=== PATIENT | female | born 1940 | race Caucasian/White ===

== ENCOUNTER 2020-07-28 07:25 | Outpatient (REF) | payer BC, SELFPAY ==
--- NOTE | 2020-07-28 07:29 | MM_ITS ---
EXAMINATION: MM SCREENING DIGITAL BREAST TOMOSYNTHESIS, BILATERAL CLINICAL INFORMATION: Screening. Asymptomatic. The lifetime risk of breast cancer based on the Tyrer-Cuzick Model is 2%. COMPARISON: Mammography: 07/26/2019, 07/04/2018, 06/08/2017 TECHNIQUE: Digital breast tomosynthesis is performed in both the craniocaudal and mediolateral oblique views along with computer-aided detection (CAD). Synthesized 2D images are generated from the tomosynthesis. Additional left CC view is provided. FINDINGS: The breasts are almost entirely fatty (ACR BI-RADS breast composition Category a). There are no significant masses, abnormal calcifications, or other abnormalities. Background stromal densities are stable. No significant changes. MM/MM tomosynthesis screening BI IMPRESSION: No mammographic evidence of malignancy. ASSESSMENT: BI-RADS 1: Negative RECOMMENDATION: Routine annual mammography screening. This patient's information was entered into a reminder system with a target due date for their next mammogram.
== END 2020-07-28 07:26 | disposition home or self-care (01) ==
LOC: HO.MAMMO 07:25
PROVIDERS: PCP Internal Medicine; Visit Provider Internal Medicine
DX: Z12.31 Encounter for screening mammogram for malignant neoplasm of breast (principal)
CPT/HCPCS: 77063; 77067

== ENCOUNTER 2020-11-20 07:25 | Outpatient (REF) | payer MEDICARE, SELFPAY ==
[2020-11-20 08:30] LABS: MANUAL DIFF FLAG NO
[2020-11-20 08:45] LABS: Basophils Percent Auto 0.6 % (0-2); Eosinophils Absolute Auto 0.3 X10*3/uL (0.0-0.4); Eosinophils Percent Auto 3.6 % (0-4); Hematocrit 43.9 % (37-47); Hemoglobin 14.2 g/dl (12.0-16.0); Imm Gran Abs Auto 0.01 X10*3/uL (0.00-0.03); Imm Gran Pct Auto 0.1 % (0.0-0.4); Lymphocytes Absolute Auto 2.2 X10*3/uL (1.2-4.9); Lymphocytes Percent Auto 31.6 % (20-40); Mean Corpuscular HGB Conc 32.3 g/dl (31.0-35.0); Mean Corpuscular Hemoglobin 30.9 pg (27.0-33.0); Mean Corpuscular Volume 95.4 fL (80-98); Mean Platelet Volume 11.3 fL (9.4-12.3); Monocytes Absolute Auto 0.7 X10*3/uL (0.1-1.2); Monocytes Percent Auto 10.2 % (2-11); Neutrophils Absolute Auto 3.7 X10*3/uL (2.0-8.3); Neutrophils Percent Auto 53.9 % (45-73); Platelet Count 235 X10*3/uL (160-400); Red Cell Distribution Width 13.4 % (11.0-16.0); White Blood Count 6.9 X10*3/uL (4.8-10.8)
[2020-11-20 09:12] LABS: Alanine Aminotransferase 28 U/L (0-31); Albumin Level 4.3 g/dL (3.5-5.0); Alkaline Phosphatase 43 U/L (39-117); Anion Gap 12 (12-20); Aspartate Amino Transferase 33 U/L (5-31); Bilirubin Total 0.7 mg/dL (0.0-1.0); Blood Urea Nitrogen 23 mg/dL (9-16); Calcium 8.8 mg/dL (8.4-10.2); Carbon Dioxide 27 mmol/L (22-29); Chloride 105 mmol/L (96-108); Cholesterol 156 mg/dL; Estimated Glomerular Filt Rate 60; Glucose Fasting 99 mg/dL (60-99); HDL Cholesterol 59 mg/dL; LDL Cholesterol Calculated 86 mg/dl; Potassium 4.6 mmol/L (3.3-5.1); Sodium 139 mmol/L (135-145); Total Protein 6.9 g/dL (6.5-8.0); Triglycerides 59 mg/dL
[2020-11-20 09:34] LABS: Vitamin D 25-OH Total 23.4 ng/mL (>30)
== END 2020-11-20 07:26 | disposition home or self-care (01) ==
LOC: HO.LAB 07:25
PROVIDERS: PCP Internal Medicine; Visit Provider Internal Medicine
DX: I10 Essential (primary) hypertension (principal); I25.10 Atherosclerotic heart disease of native coronary artery without angina pectoris; E78.00 Pure hypercholesterolemia, unspecified; M85.80 Other specified disorders of bone density and structure, unspecified site
CPT/HCPCS: 36415; 80053; 80061; 82306; 85025

== ENCOUNTER 2021-06-08 07:18 | Outpatient (REF) | payer MEDICARE, SELFPAY ==
[2021-06-08 08:15] LABS: Alanine Aminotransferase 28 U/L (0-31); Aspartate Amino Transferase 30 U/L (5-31); Cholesterol 167 mg/dL; HDL Cholesterol 51 mg/dL; LDL Cholesterol Calculated 96 mg/dl; Triglycerides 100 mg/dL
[2021-06-08 08:20] LABS: Alanine Aminotransferase 28 U/L (0-31); Albumin Level 4.1 g/dL (3.5-5.0); Alkaline Phosphatase 42 U/L (39-117); Anion Gap 10 (12-20); Aspartate Amino Transferase 30 U/L (5-31); Bilirubin Total 0.6 mg/dL (0.0-1.0); Blood Urea Nitrogen 19 mg/dL (9-16); Calcium 8.9 mg/dL (8.4-10.2); Carbon Dioxide 29 mmol/L (22-29); Chloride 107 mmol/L (96-108); Estimated Glomerular Filt Rate > 60; Glucose Random 104 mg/dL (60-115); Potassium 4.9 mmol/L (3.3-5.1); Sodium 141 mmol/L (135-145); Total Protein 6.7 g/dL (6.5-8.0)
[2021-06-08 08:40] LABS: Vitamin D 25-OH Total 26.8 ng/mL (>30)
== END 2021-06-08 07:19 | disposition home or self-care (01) ==
LOC: HO.LAB 07:18
PROVIDERS: Absent Provider Internal Medicine; PCP Internal Medicine; Visit Provider Internal Medicine Cardiovascular Disease
DX: I10 Essential (primary) hypertension (principal); E55.9 Vitamin D deficiency, unspecified; I25.10 Atherosclerotic heart disease of native coronary artery without angina pectoris
CPT/HCPCS: 36415; 80053; 80061; 82306; 84450; 84460

== ENCOUNTER 2021-08-06 11:23 | Outpatient (REF) | payer MEDICARE, SELFPAY ==
--- NOTE | ~2021-08-06 | MM_ITS ---
EXAMINATION: MM SCREENING DIGITAL BREAST TOMOSYNTHESIS, BILATERAL CLINICAL INFORMATION: Screening. Asymptomatic. The lifetime risk of breast cancer based on the Tyrer-Cuzick Model is 2%. COMPARISON: Mammography: 07/28/2020, 07/26/2019, 07/04/2018 TECHNIQUE: Digital breast tomosynthesis is performed in both the craniocaudal and mediolateral oblique views along with computer-aided detection (CAD). Synthesized 2D images are generated from the tomosynthesis. Additional left MLO view is provided. FINDINGS: The breasts are almost entirely fatty (ACR BI-RADS breast composition Category a). There are no significant masses, abnormal calcifications, or other abnormalities. Background stromal and fibroglandular densities are stable. No developing density. No significant changes from prior studies. MM/MM tomosynthesis screening BI IMPRESSION: No mammographic evidence of malignancy. ASSESSMENT: BI-RADS 1: Negative RECOMMENDATION: Routine annual mammography screening. This patient's information was entered into a reminder system with a target due date for their next mammogram.
== END 2021-08-06 11:24 | disposition home or self-care (01) ==
LOC: HO.MAMMO 11:23
PROVIDERS: Visit Provider Internal Medicine
DX: Z12.31 Encounter for screening mammogram for malignant neoplasm of breast (principal)
CPT/HCPCS: 77063; 77067

== ENCOUNTER 2022-01-15 07:10 | Outpatient (REF) | payer MEDICARE, SELFPAY ==
[2022-01-15 07:17] LABS: MANUAL DIFF FLAG NO
[2022-01-15 08:03] LABS: Basophils Percent Auto 0.4 % (0-2); Eosinophils Absolute Auto 0.2 X10*3/uL (0.0-0.4); Eosinophils Percent Auto 3.2 % (0-4); Hematocrit 41.3 % (37.0-47.0); Hemoglobin 13.6 g/dl (12.0-16.0); Imm Gran Abs Auto 0.03 X10*3/uL (0.00-0.03); Imm Gran Pct Auto 0.4 % (0.0-0.4); Lymphocytes Percent Auto 27.9 % (20-40); Mean Corpuscular HGB Conc 32.9 g/dl (31.0-35.0); Mean Corpuscular Hemoglobin 30.6 pg (27.0-33.0); Mean Platelet Volume 10.1 fL (9.4-12.3); Monocytes Absolute Auto 0.8 X10*3/uL (0.1-1.2); Monocytes Percent Auto 10.9 % (2-11); Neutrophils Absolute Auto 4.1 x10*3/uL (2.0-8.3); Neutrophils Percent Auto 57.2 % (45-73); Platelet Count 239 X10*3/uL (160-400); Red Blood Count 4.44 X10*6/uL (4.20-5.50); Red Cell Distribution Width 13.2 % (11.0-16.0); White Blood Count 7.2 X10*3/uL (4.8-10.8)
[2022-01-15 08:26] LABS: Alanine Aminotransferase 25 U/L (0-31); Alkaline Phosphatase 42 U/L (39-117); Anion Gap 10 (12-20); Aspartate Amino Transferase 26 U/L (5-31); Bilirubin Total 0.6 mg/dL (0.0-1.0); Blood Urea Nitrogen 20 mg/dL (9-16); Calcium 9.5 mg/dL (8.4-10.2); Carbon Dioxide 28 mmol/L (22-29); Chloride 108 mmol/L (96-108); Cholesterol 163 mg/dL; Estimated Glomerular Filt Rate 55; Glucose Fasting 100 mg/dL (60-99); HDL Cholesterol 44 mg/dL; LDL Cholesterol Calculated 101 mg/dl; Potassium 4.5 mmol/L (3.3-5.1); Sodium 141 mmol/L (135-145); Total Protein 6.7 g/dL (6.5-8.0); Triglycerides 91 mg/dL
[2022-01-15 08:46] LABS: Vitamin D 25-OH Total 23.1 ng/mL (>30)
== END 2022-01-15 07:11 | disposition home or self-care (01) ==
LOC: HO.LAB 07:10
PROVIDERS: PCP Internal Medicine; Visit Provider Internal Medicine
DX: I10 Essential (primary) hypertension (principal); E78.00 Pure hypercholesterolemia, unspecified; E55.9 Vitamin D deficiency, unspecified
CPT/HCPCS: 36415; 80053; 80061; 82306; 85025

== ENCOUNTER 2022-07-11 07:09 | Outpatient (REF) | payer MEDICARE, SELFPAY ==
[2022-07-11 07:57] LABS: Anion Gap 16 (12-20); Blood Urea Nitrogen 15 mg/dL (9-16); Calcium 8.5 mg/dL (8.4-10.2); Carbon Dioxide 25 mmol/L (22-29); Chloride 106 mmol/L (96-108); Estimated Glomerular Filt Rate 59; Glucose Random 111 mg/dL (60-115); Potassium 4.7 mmol/L (3.3-5.1); Sodium 142 mmol/L (135-145)
[2022-07-11 08:18] LABS: Vitamin D 25-OH Total 26.6 ng/mL (>30)
== END 2022-07-11 07:10 | disposition home or self-care (01) ==
LOC: HO.LAB 07:09
PROVIDERS: PCP Internal Medicine; Visit Provider Internal Medicine
DX: I12.9 Hypertensive chronic kidney disease with stage 1 through stage 4 chronic kidney disease, or unspecified chronic kidney disease (principal); E55.9 Vitamin D deficiency, unspecified; N18.9 Chronic kidney disease, unspecified
CPT/HCPCS: 36415; 80048; 82306

== ENCOUNTER 2022-08-12 07:49 | Outpatient (REF) | payer MEDICARE, SELFPAY ==
--- NOTE | ~2022-08-12 | MM_ITS ---
EXAMINATION: MM SCREENING DIGITAL BREAST TOMOSYNTHESIS, BILATERAL CLINICAL INFORMATION: Screening. Asymptomatic. COMPARISON: Mammography: 08/06/2021, 07/28/2020, 07/26/2019 TECHNIQUE: Digital breast tomosynthesis is performed in both the craniocaudal and mediolateral oblique views along with computer-aided detection (CAD). Synthesized 2D images are generated from the tomosynthesis. FINDINGS: The breasts are almost entirely fatty (ACR BI-RADS breast composition Category a). Background stromal markings are similar to prior studies. There is no developing density or architectural abnormality. There is a small stable nodule lateral periareolar left breast. There are no significant masses, abnormal calcifications, or other abnormalities. The axilla are unremarkable. MM/MM tomosynthesis screening BI IMPRESSION: No mammographic evidence of malignancy. ASSESSMENT: BI-RADS 2: Benign RECOMMENDATION: Routine annual mammography screening. This patient's information was entered into a reminder system with a target due date for their next mammogram.
== END 2022-08-12 07:50 | disposition home or self-care (01) ==
LOC: HO.MAMMO 07:49
PROVIDERS: PCP Internal Medicine; Visit Provider Internal Medicine
DX: Z12.31 Encounter for screening mammogram for malignant neoplasm of breast (principal)
CPT/HCPCS: 77063; 77067

== ENCOUNTER 2022-11-25 09:28 | Outpatient (REF) | payer MEDICARE, SELFPAY ==
[2022-11-25 10:34] LABS: MANUAL DIFF FLAG NO
[2022-11-25 10:42] LABS: Basophils Percent Auto 0.5 % (0-2); Eosinophils Absolute Auto 0.2 X10*3/uL (0.0-0.4); Eosinophils Percent Auto 2.6 % (0-4); Hematocrit 37.5 % (37.0-47.0); Hemoglobin 12.5 g/dl (12.0-16.0); Imm Gran Abs Auto 0.03 X10*3/uL (0.00-0.03); Imm Gran Pct Auto 0.4 % (0.0-0.4); Lymphocytes Absolute Auto 1.8 X10*3/uL (1.2-4.9); Lymphocytes Percent Auto 23.8 % (20-40); Mean Corpuscular HGB Conc 33.3 g/dl (31.0-35.0); Mean Corpuscular Hemoglobin 31.1 pg (27.0-33.0); Mean Corpuscular Volume 93.3 fL (80.0-98.0); Mean Platelet Volume 11.2 fL (9.4-12.3); Monocytes Absolute Auto 0.8 X10*3/uL (0.1-1.2); Monocytes Percent Auto 10.2 % (2-11); Neutrophils Absolute Auto 4.8 x10*3/uL (2.0-8.3); Neutrophils Percent Auto 62.5 % (45-73); Platelet Count 229 X10*3/uL (160-400); Red Blood Count 4.02 X10*6/uL (4.20-5.50); Red Cell Distribution Width 13.4 % (11.0-16.0); White Blood Count 7.7 X10*3/uL (4.8-10.8)
[2022-11-25 11:17] LABS: Alanine Aminotransferase 24 U/L (0-31); Albumin Level 3.8 g/dL (3.5-5.0); Alkaline Phosphatase 42 U/L (39-117); Anion Gap 12 (12-20); Aspartate Amino Transferase 28 U/L (5-31); Bilirubin Total 0.5 mg/dL (0.0-1.0); Blood Urea Nitrogen 19 mg/dL (9-16); C Reactive Protein < 0.10 mg/dL (< or = 0.50); Calcium 8.9 mg/dL (8.4-10.2); Carbon Dioxide 26 mmol/L (22-29); Chloride 108 mmol/L (96-108); Estimated Glomerular Filt Rate > 60; Glucose Random 102 mg/dL (60-115); Potassium 4.9 mmol/L (3.3-5.1); Sodium 141 mmol/L (135-145)
== END 2022-11-25 09:29 | disposition home or self-care (01) ==
LOC: HO.10HDL 09:28
PROVIDERS: Visit Provider Internal Medicine
DX: I12.9 Hypertensive chronic kidney disease with stage 1 through stage 4 chronic kidney disease, or unspecified chronic kidney disease (principal); N18.9 Chronic kidney disease, unspecified; R25.2 Cramp and spasm
CPT/HCPCS: 36415; 80053; 82550; 85025; 86140

== ENCOUNTER 2023-02-03 10:51 | Outpatient (REF) | payer MEDICARE, SELFPAY ==
[2023-02-03 13:17] LABS: MANUAL DIFF FLAG NO
[2023-02-03 13:20] LABS: Basophils Percent Auto 0.6 % (0-2); Eosinophils Absolute Auto 0.2 X10*3/uL (0.0-0.4); Eosinophils Percent Auto 3.3 % (0-4); Hematocrit 39.5 % (37.0-47.0); Hemoglobin 12.7 g/dl (12.0-16.0); Imm Gran Abs Auto 0.01 X10*3/uL (0.00-0.03); Imm Gran Pct Auto 0.1 % (0.0-0.4); Mean Corpuscular HGB Conc 32.2 g/dl (31.0-35.0); Mean Corpuscular Hemoglobin 30.8 pg (27.0-33.0); Mean Corpuscular Volume 95.6 fL (80.0-98.0); Mean Platelet Volume 11.3 fL (9.4-12.3); Monocytes Absolute Auto 0.8 X10*3/uL (0.1-1.2); Neutrophils Absolute Auto 3.9 x10*3/uL (2.0-8.3); Platelet Count 236 X10*3/uL (160-400); Red Blood Count 4.13 X10*6/uL (4.20-5.50); Red Cell Distribution Width 13.5 % (11.0-16.0)
[2023-02-03 13:38] LABS: Anion Gap 10 (12-20); Blood Urea Nitrogen 16 mg/dL (9-16); Calcium 9.1 mg/dL (8.4-10.2); Carbon Dioxide 27 mmol/L (22-29); Chloride 109 mmol/L (96-108); Estimated Glomerular Filt Rate > 60; Glucose Random 94 mg/dL (60-115); Potassium 4.8 mmol/L (3.3-5.1); Sodium 141 mmol/L (135-145)
[2023-02-03 13:48] LABS: Free T4 (Free Thyroxine) 0.87 ng/dL (0.71-1.85); Thyroid Stimulating Hormone 2.24 uIU/mL (0.32-4.0)
[2023-02-03 13:55] LABS: Erythrocyte Sedimentation Rate 3 MM/HR (0-20)
== END 2023-02-03 10:52 | disposition home or self-care (01) ==
LOC: HO.10HDL 10:51
PROVIDERS: Visit Provider Internal Medicine
DX: E03.9 Hypothyroidism, unspecified (principal); I10 Essential (primary) hypertension; M79.18 Myalgia, other site
CPT/HCPCS: 36415; 80048; 82550; 84439; 84443; 85025; 85652

== ENCOUNTER 2023-06-11 14:56 | Emergency (ER) | payer MEDICARE, SELFPAY ==
[2023-06-11 14:59] VITALS: BP 178/66; PULSE 64; RESP 16; TEMP 36.3; O2SAT 97; BMI 29.0
--- NOTE | 2023-06-11 14:59 | ED.GENADULT ---
HPI - General Adult General Chief complaint: Wound/Laceration Stated complaint: Finger lac Time Seen by Provider: 06/11/23 15:50 Source: patient Mode of arrival: ambulatory Limitations: no limitations History of Present Illness HPI narrative: 83-year-old female [id number] here with laceration to the left 3rd digit from a hedgetrimmer which occurred just prior to arrival. Patient reports she cleaned the laceration with running water before coming in. Tetanus status unknown. No associated weakness, numbness, tingling of the extremity. Related Data Previous Rx's Medication Instructions Recorded cephalexin 500 mg capsule 500 mg PO BID #20 caps 06/11/23 Allergies Allergy/AdvReac Type Severity Reaction Status Date / Time acetaminophen [Percocet] Allergy Unknown Verified 08/31/19 00:00 oxycodone [Percocet] Allergy Unknown Verified 08/31/19 00:00 Review of Systems Review of Systems: Yes all other systems are reviewed and are negative Constitutional: Constitutional: Reports no additional constitutional complaints, Denies body ache(s), Denies chills, Denies fever(s), Denies headache(s) and Denies weakness Eyes: Eyes: Reports no additional eye complaints and Denies change in vision ENT: Reports system reviewed and no additional complaints, except as documented, Denies dizziness, Denies headache(s), Denies nasal congestion, Denies nasal discharge and Denies neck pain Cardiovascular: Cardiovascular: Reports no additional cardiovascular complaints, Denies chest pain, Denies leg edema and Denies dyspnea Respiratory: Respiratory: Reports no additional respiratory complaints, Denies cough and Denies dyspnea Gastrointestinal: Gastrointestinal: Reports no additional gastrointestinal complaints, Denies abdominal pain, Denies diarrhea, Denies nausea and Denies vomiting Genitourinary: Genitourinary: Reports no additional female genitourinary complaints and Denies urinary incontinence Musculoskeletal: Musculoskeletal: Reports no additional musculoskeletal complaints, Denies back pain, Denies arthralgias, Denies joint swelling, Denies neck pain, Denies numbness and Denies tingling Integumentary/Breasts: Skin/Breast: Reports system reviewed and no additional complaints, except as docu, Denies rash and Reports wounds Neurologic: Reports system reviewed and no additional complaints, except as documented, Denies Abnormal speech present, Denies dizziness, Denies headache(s), Denies numbness, Denies tingling and Denies weakness [facility] Past Medical History Attestation statement: The following information was validated with the patient. Source: old records reviewed and nursing notes reviewed Social History Social History Advance Directives: No Advance Directives Information Provided: No Physical Exam ED Vital Signs: Vital Signs - 24 hr 06/11/23 14:59 Temperature 97.3 F Pulse Rate 64 Respiratory Rate 16 Blood Pressure 178/66 H Pulse Oximetry 97 Oxygen Delivery Method Room Air BMI result Body Mass Index 29.0 Const General: cooperative, healthy appearing, comfortable and no acute distress Orientation/consciousness: patient oriented x3 Limitations: no limitations HENMT Head: Yes normal to inspection Ears: hearing grossly normal bilaterally General nose exam: Normal external nose present Face and sinus: Yes normal facial exam Mouth: Normal oral and palatal mucosa present Throat: Yes posterior oropharynx normal Eyes General: appearance normal, both eyes and all related structures Pupils: Equal, round and reactive pupils present Neck Neck: Yes normal visual inspection Chest Chest palpation & inspection: normal inspection of the chest Resp Effort & Inspection: normal respiratory effort Auscultation: clear to auscultation bilaterally Cardio Rate: regular rate Rhythm: regular rhythm Peripheral pulses: Peripheral pulses 2+ throughout GI Inspection: Yes normal to inspection Palpation (GI): Soft to palpation and nontender Auscultation: normal bowel sounds Back/Spine/Pelvis Thoracic/Lumbar Spine: thoracic and lumbar spine normal to inspection Skin General skin exam: no rashes or lesions noted Neuro General: patient oriented x3, no focal motor deficits and normal sensation to monofilament Cranial nerves: Yes Equal, round and reactive pupils present Cognition (Neuro): normal cognition Speech: No Abnormal speech present Gait exam (Neuro): Normal gait present Motor exam (neuro): 5/5 motor strength present throughout Extrem Other: To the left 3rd digit there is a laceration present through the distal nailbed approximately 2cm which extends to the medial aspect. Bleeding controlled. Full active/passive ROM. Normal sensation. Course Course Course Narrative: RME; 83 yold female with left middle finger laceration going through nail bed after being cut by branch hedge trimer. Patient last tetanus shot 2013. Xray ordered. tdap ordered Medications Administered Discontinued Medications Generic Name Dose Route Start Last Admin Trade Name Freq PRN Reason Stop Dose Admin Diphtheria/Tetanus/Acell Pertussis 0.5 ml 06/11/23 14:58 06/11/23 15:51 Diphth,Pertus(Acell),Tet Adult 0.5 Ml Syringe IM 06/11/23 14:59 0.5 ml .ONCE ONE Administration Lidocaine HCl 2 ml 06/11/23 15:59 06/11/23 16:06 Lidocaine Hcl 1 % Mpf 2 Ml Vial INFILTRATI 06/11/23 16:00 2 ml ONCE ONE Administration Lidocaine HCl 2 ml 06/11/23 15:59 06/11/23 16:07 Lidocaine Hcl 1 % Mpf 2 Ml Vial INFILTRATI 06/11/23 16:00 2 ml ONCE ONE Administration Lidocaine HCl 2 ml 06/11/23 15:59 06/11/23 16:07 Lidocaine Hcl 1 % Mpf 2 Ml Vial INFILTRATI 06/11/23 16:00 2 ml ONCE ONE Administration Procedures Procedure Narrative Procedure Narrative: During the lac repair the distal nail broke into fragments and the lateral distal aspect of the nailbed was removed. Laceration Laceration 1: Site: hand Side (If applicable): left Size (cm): 2 Description: flap, irregular and other (involves nailbed ) Depth: simple, single layer Pre-repair: wound explored, irrigated extensively, deep structures intact and extensive debridement (had to remove the distal nailbed) Skin layer closed with: vicryl Size (cm): 5-0 Number of sutures: 3 Technique: simple, interrupted Nerve Block Nerve Block 1: Local Anesthetic: lidocaine 1% Amount of anesthesia used (mL): 5 Side: left Nerve Blocks: digital Procedure Successful: Yes Patient Tolerated Procedure: well Complications: none Medical Decision Making Medical Decision Making MDM Narrative: 83-year-old female [id number] here with laceration to the left 3rd digit from a hedgetrimmer which occurred just prior to arrival. Patient reports she cleaned the laceration with running water before coming in. Tetanus status unknown. No associated weakness, numbness, tingling of the extremity. To the left 3rd digit there is a laceration present through the distal nailbed approximately 2cm which extends to the medial aspect. Bleeding controlled. Full active/passive ROM. Normal sensation. See procedure note for wound repair. Will need tetanus updated, x-ray to r/o fracture Differential Diagnosis Differential Diagnoses: The differential diagnosis associated with the presentation includes laceration, fracture low concern for vascular injury, foreign body Admission/Observation Consideration of admission/observation: Escalation of care including admission/observation considered no evidence of vascular injury, complex fracture, foreign body requiring emergent orthopedic consultation and further management Independent Interpretation I performed an independent interpretation of an: Plain X-Ray Interpretation: I independently reviewed the x-ray and agree with the radiology report Radiology Impression Discussion of test interpretation with radiology: I have reviewed the radiologist's reading. Radiologist Impression: [address] [address] XRay Report Signed Patient: Jacy Mcknight MR#: [id number] : 1940 Acct:[id number] Age/Sex: 83 / F ADM Date: 06/11/23 Loc: HO.ED Attending Dr: Ordering Physician: Julien Avitia Date of Service: 06/11/23 Procedure(s): XR hand wrist LT Accession Number(s): [id number] cc: Julien Avitia; Cayetano Del Real MD~ EXAMINATION: XR WRIST, LEFT XR HAND, LEFT CLINICAL INFORMATION: Left middle finger laceration. Tuft fracture. COMPARISON: None available. TECHNIQUE: PA, lateral, and oblique views of the left wrist and PA, lateral, and oblique views of the left hand FINDINGS: LEFT WRIST: The bones and soft tissues are normal. No fracture. Alignment is anatomic. Joint there is loss of first carpometacarpal joint space with moderate periarticular spurring. Rest of the intercarpal joint spaces preserved. There is mild wrist soft tissue swelling. No bony erosive changes or loose body seen.. LEFT HAND: Mild loss of PIP and DIP joint space is seen. No bony erosive changes. Mild periarticular spurring DIP joint fifth and second digits. No acute fracture or dislocation. No loose body seen. The soft tissues are normal. XR/XR hand wrist LT IMPRESSION: 1. Degenerative arthritic changes first carpometacarpal joint. No visible acute fracture or dislocation seen. 2. Mild degenerative changes PIP and DIP joints left hand. No visible acute fracture or dislocation seen. Independent Historian Clinical information obtained from an independent historian. History obtained from or confirmed by: Friend Tests considered The following testing was considered but not selected: no evidence of vascular injury, complex fracture, foreign body requiring emergent orthopedic consultation and further management Prescription Management I considered prescription management with: Antibiotic Discharge Plan Discharge Clinical Impression: Laceration Patient Disposition: Home, Self-Care Instructions: Finger Laceration (ED) Additional Instructions: Sutures out in 7-10 days Leave the dressing in place for 24 hrs then you may remove the dressing and wash the area with soap and water daily Monitor for signs of infection such as redness, drainage, swelling, odor Prescriptions: New cephalexin 500 mg capsule 500 mg PO BID Qty: 20 0RF Referrals: Cayetano Del Real MD [Primary Care Provider] - 1 week Discharge Date/Time: 06/11/23 17:17
== END 2023-06-11 17:17 | disposition home or self-care (01) ==
PROVIDERS: Emergency Provider Emergency Medicine; PCP Internal Medicine
DX: S61.213A Laceration without foreign body of left middle finger without damage to nail, initial encounter (principal); S60.512A Abrasion of left hand, initial encounter; M25.532 Pain in left wrist; W29.8XXA Contact with other powered hand tools and household machinery, initial encounter; Y93.9 Activity, unspecified; Y92.9 Unspecified place or not applicable; Y99.9 Unspecified external cause status; Z23 Encounter for immunization
CPT/HCPCS: 13131; 73110; 73130; 90471; 90715; 99281; 99284

== ENCOUNTER 2023-06-13 07:17 | Outpatient (REF) | payer MEDICARE, SELFPAY | END 2023-06-13 07:18 | disposition home or self-care (01) | LOC: HO.LAB 07:17 | PROVIDERS: PCP Internal Medicine; Visit Provider Internal Medicine | DX: I25.10 Atherosclerotic heart disease of native coronary artery without angina pectoris (principal); I10 Essential (primary) hypertension; E78.00 Pure hypercholesterolemia, unspecified; E55.9 Vitamin D deficiency, unspecified | CPT/HCPCS: 36415; 80053; 80061; 82306; 82550; 85025 ==

== ENCOUNTER 2023-06-19 16:25 | Outpatient (REF) | payer MEDICARE, SELFPAY ==
[2023-06-19 17:52] LABS: C Reactive Protein 0.15 mg/dL (< or = 0.50)
[2023-06-19 18:17] LABS: Erythrocyte Sedimentation Rate 7 MM/HR (0-20)
== END 2023-06-19 16:26 | disposition home or self-care (01) ==
LOC: HO.LAB 16:25
PROVIDERS: PCP Internal Medicine; Visit Provider Internal Medicine
DX: M79.10 Myalgia, unspecified site (principal); R74.8 Abnormal levels of other serum enzymes; E78.00 Pure hypercholesterolemia, unspecified
CPT/HCPCS: 36415; 82550; 85652; 86140

== ENCOUNTER 2023-08-01 10:33 | Outpatient (REF) | payer MEDICARE, SELFPAY | END 2023-08-01 10:34 | disposition home or self-care (01) | LOC: HO.10HDL 10:33 | PROVIDERS: Visit Provider Internal Medicine | DX: I25.10 Atherosclerotic heart disease of native coronary artery without angina pectoris (principal); E78.00 Pure hypercholesterolemia, unspecified; R74.8 Abnormal levels of other serum enzymes | CPT/HCPCS: 36415; 82550 ==

== ENCOUNTER 2023-08-17 07:54 | Outpatient (REF) | payer MEDICARE, SELFPAY | END 2023-08-17 07:55 | disposition home or self-care (01) | LOC: HO.MAMMO 07:54 | PROVIDERS: PCP Internal Medicine; Visit Provider Internal Medicine | DX: Z12.31 Encounter for screening mammogram for malignant neoplasm of breast (principal) | CPT/HCPCS: 77063; 77067 ==

== ENCOUNTER → 2023-08-17 08:15 | Outpatient (BNV) | payer MEDICARE, SELFPAY | PROVIDERS: PCP Internal Medicine; Visit Provider Radiology Diagnostic Radiology | DX: Z12.31 Encounter for screening mammogram for malignant neoplasm of breast (principal) | CPT/HCPCS: 77063; 77067 ==

== ENCOUNTER 2023-11-28 07:19 | Outpatient (REF) | payer MEDICARE, SELFPAY ==
[2023-11-28 07:29] LABS: MANUAL DIFF FLAG NO
[2023-11-28 07:43] LABS: Basophils Percent Auto 0.4 % (0-2); Eosinophils Absolute Auto 0.1 X10*3/uL (0.0-0.4); Eosinophils Percent Auto 1.4 % (0-4); Hematocrit 41.1 % (37.0-47.0); Hemoglobin 13.4 g/dl (12.0-16.0); Imm Gran Abs Auto 0.03 X10*3/uL (0.00-0.03); Imm Gran Pct Auto 0.3 % (0.0-0.4); Lymphocytes Absolute Auto 2.1 X10*3/uL (1.2-4.9); Lymphocytes Percent Auto 23.2 % (20-40); Mean Corpuscular HGB Conc 32.6 g/dl (31.0-35.0); Mean Corpuscular Hemoglobin 30.5 pg (27.0-33.0); Mean Corpuscular Volume 93.6 fL (80.0-98.0); Mean Platelet Volume 10.2 fL (9.4-12.3); Monocytes Absolute Auto 0.9 X10*3/uL (0.1-1.2); Neutrophils Absolute Auto 5.8 x10*3/uL (2.0-8.3); Neutrophils Percent Auto 64.7 % (45-73); Platelet Count 257 X10*3/uL (160-400); Red Blood Count 4.39 X10*6/uL (4.20-5.50); Red Cell Distribution Width 13.6 % (11.0-16.0)
[2023-11-28 08:25] LABS: Alanine Aminotransferase 25 U/L (0-31); Alkaline Phosphatase 51 U/L (39-117); Anion Gap 10 (12-20); Aspartate Amino Transferase 33 U/L (5-31); Bilirubin Total 0.5 mg/dL (0.0-1.0); Blood Urea Nitrogen 15 mg/dL (9-16); C Reactive Protein 2.49 mg/dL (< or = 0.50); Calcium 9.1 mg/dL (8.4-10.2); Carbon Dioxide 26 mmol/L (22-29); Chloride 110 mmol/L (96-108); Cholesterol 200 mg/dL (<200); Estimated Glomerular Filt Rate > 60; Glucose Fasting 95 mg/dL (60-99); HDL Cholesterol 44 mg/dL (>40); LDL Cholesterol Calculated 135 mg/dL (<100); Potassium 3.9 mmol/L (3.3-5.1); Sodium 142 mmol/L (135-145); Total Protein 7.1 g/dL (6.5-8.0); Triglycerides 105 mg/dL (<150)
== END 2023-11-28 07:20 | disposition home or self-care (01) ==
LOC: HO.LAB 07:19
PROVIDERS: PCP Internal Medicine; Visit Provider Internal Medicine
DX: I25.10 Atherosclerotic heart disease of native coronary artery without angina pectoris (principal); E78.00 Pure hypercholesterolemia, unspecified; I10 Essential (primary) hypertension; R79.82 Elevated C-reactive protein (CRP)
CPT/HCPCS: 36415; 80053; 80061; 82306; 82550; 85025; 86140

== ENCOUNTER 2024-02-05 12:46 | Outpatient (AMB) | payer MEDICARE, SELFPAY ==
--- NOTE | 2024-02-05 12:50 | MHC.OFFVIS ---
Vital Signs 02/05/24 12:56 Height 5 ft 3 in Weight 154 lb 12.232 oz BMI 27.4 BP 124/66 Blood Pressure Location Rt brachial Position Sitting Pulse 58 Pulse Oximetry (%) 96 Intake Visit Reasons: Elev CPK Intake Note: New patient presents today for abnormal lab consult. C/o multiple joint pain and dizziness when walking. 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 Accompanied by: Self / Same As Patient Allergies acetaminophen [From Tylenol-Codeine #3] Adverse Reaction (Severe, Verified 02/05/24 13:03) syncope codeine [From Tylenol-Codeine #3] Adverse Reaction (Severe, Verified 02/05/24 13:03) syncope oxycodone [From Percocet] Adverse Reaction (Severe, Verified 02/05/24 13:03) syncopee Medication List - Last Reconciled 02/05/24 by Arnol Torres MD ascorbate calcium (vitamin C) 500 mg PO DAILY aspirin 81 mg PO DAILY carvedilol 12.5 mg PO BID cholecalciferol (vitamin D3) 50 mcg PO DAILY isosorbide mononitrate ER 30 mg PO DAILY loratadine 10 mg PO DAILY losartan 50 mg PO DAILY HPI Comments Details: This is an 84-year-old female presents for evaluation of elevated CPK. Patient states that has been on pravastatin for approximately 6 years. Over the last 2 years she has been having bilateral hip and thigh soreness especially when exercising [facility] the [facility]. Her CPK was checked and it was approximately 700. Her pravastatin was held and her CPK trended down but did not normalize. She was referred by her creative art therapist. She states that gets bilateral hip and thigh pain especially with walking. Sitting down helps her pain. Leaning forward helps her pain. She states that she has generalized joint pain and stiffness in the morning, she has bilateral ankle pain. She takes ibuprofen 400 mg daily in the morning to help get her going. She states that she had lower back surgery years ago. Since she discontinued her statin approximately 7 months ago she did not note any significant improvement. Denies any weakness or pain of her shoulders. Denies any skin rashes, denies weight loss. She has a sister with leukemia, father had MS. [facility] Medical History (Updated 02/05/24 @ 13:41 by Arnol Torres MD) Hyperlipidemia Hypertension Elevated CPK Surgical History History of cardiac catheterization H/O angioplasty Hx of hysterectomy H/O basal cell carcinoma excision H/O lumbar discectomy History of total left knee replacement Family History Mother Lung cancer Arthritis Father Multiple sclerosis Sister Arthritis Leukemia Social History Alcohol intake: former Patient Tobacco Use Status: Never used Tobacco Current occupational status: retired Review of Systems Const Reports fatigue and Reports weakness Eyes Reports dry eyes Resp Reports cough Musc Reports back pain, Reports arthralgias, Denies joint swelling and Reports stiffness Skin/Breast Denies rash and Reports unusual bruising Neuro Reports weakness Endo Reports fatigue Physical Exam Vital Signs: Last Vital Signs Pulse 58 02/05/24 12:56 BP 124/66 02/05/24 12:56 Pulse Ox 96 02/05/24 12:56 BMI result Body Mass Index 27.4 Const General: cooperative, healthy appearing and comfortable Nutritional Appearance: overweight Orientation/consciousness: patient oriented x3 Limitations: no limitations HEENT Head: Yes normocephalic and Yes atraumatic Mouth: moist mucous membranes Resp Effort & Inspection: normal respiratory effort and able to speak in complete sentences Cardio Rate: regular rate Neuro General: patient oriented x3 Extrem Other: Osteoarthritic changes of both hands with no swelling Bilateral wrist pain with full flexion Normal range of motion of elbows and shoulders without pain Proximal muscle strength 5/5 proximally all 4 limbs Normal nailfold capillaroscopy Positive straight leg raise test bilaterally Right knee crepitus No ankle swelling or tenderness bilaterally Assessment & Plan Assessment & Plan (1) Elevated CPK: Code(s): R74.8 - Abnormal levels of other serum enzymes Category: Medical Plan: This is an 84-year-old female since for evaluation of elevated CPK. Patient's CPK trended down when her pravastatin was discontinued however it did not normalize. 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 Patient however complains of generalized morning stiffness lasting approximately 20 minutes daily, pain in her ankles, takes ibuprofen 400 mg daily for the last 2 years. Will order comprehensive serology to screen for underlying autoimmune rheumatic disease. Advised patient to try to cut down on ibuprofen use. Follow-up in 5-6 weeks Plan I spent 47 minutes reviewing patient's chart, evaluating patient, ordering diagnostic workup, counseling patient and documenting in the chart Orders: Orders Complete Blood Count Auto Diff Today M60.9 - Myositis, unspecified Creatine Kinase Total Today M60.9 - Myositis, unspecified Erythrocyte Sedimentation Rate Today M60.9 - Myositis, unspecified Immunofixation Pnl, Serum Today M60.9 - Myositis, unspecified Lactate Dehydrogenase Today M60.9 - Myositis, unspecified Gamma Glutamyl Transpeptidase Today R74.01 - Elevation of levels of liver transaminase levels Cyclic Citrullinated Peptide Today M25.50 - Pain in unspecified joint KIRSTIN Reflex Titer and Pattern Today M32.9 - Systemic lupus erythematosus, unspecified Complement C3 Today M32.9 - Systemic lupus erythematosus, unspecified Complement C4 Today M32.9 - Systemic lupus erythematosus, unspecified Comprehensive Met. Panel Today M60.9 - Myositis, unspecified C Reactive Protein Today M60.9 - Myositis, unspecified Aldolase Today M60.9 - Myositis, unspecified Hepatitis A,B,C Profile Today Z11.59 - Encounter for screening for other viral diseases Protein Electrophoresis, Serum Today M60.9 - Myositis, unspecified T Spot TB Today Z11.7 - Encounter for testing for latent tuberculosis infection MSA Panel Extended Today M60.9 - Myositis, unspecified Rheumatoid Factor Today M25.50 - Pain in unspecified joint Anti Extractable Nuclear Ag Today M32.9 - Systemic lupus erythematosus, unspecified Anti DNA DS Antibody Today M32.9 - Systemic lupus erythematosus, unspecified Protein Creatinine Ratio, Ur Today M32.9 - Systemic lupus erythematosus, unspecified Sjogren's Antibodies Today M32.9 - Systemic lupus erythematosus, unspecified UA w Microscopic Today M32.9 - Systemic lupus erythematosus, unspecified Coding Level of Care Code New Pt Level 4 (36052) Diagnoses Elevated CPK R74.8
[2024-02-05 12:56] VITALS: BP 124/66; PULSE 58; O2SAT 96; BMI 27.4
== END 2024-02-05 13:34 | disposition home or self-care (01) ==
PROVIDERS: PCP Internal Medicine; Referring Provider Internal Medicine Cardiovascular Disease; Visit Provider Student in an Organized Health Care Education/Training Program
DX: R74.8 Abnormal levels of other serum enzymes (principal)
CPT/HCPCS: 99204

== ENCOUNTER 2024-02-05 12:46 | Outpatient (REF) | payer MEDICARE, SELFPAY ==
[2024-02-05 13:58] LABS: MANUAL DIFF FLAG NO
[2024-02-05 14:46] LABS: Basophils Absolute Auto 0.1 X10*3/uL (0.0-0.2); Basophils Percent Auto 0.7 % (0-2); Eosinophils Absolute Auto 0.2 X10*3/uL (0.0-0.4); Eosinophils Percent Auto 2.2 % (0-4); Hematocrit 39.1 % (37.0-47.0); Imm Gran Abs Auto 0.02 X10*3/uL (0.00-0.03); Imm Gran Pct Auto 0.3 % (0.0-0.4); Lymphocytes Absolute Auto 2.4 X10*3/uL (1.2-4.9); Lymphocytes Percent Auto 31.6 % (20-40); Mean Corpuscular HGB Conc 33.2 g/dl (31.0-35.0); Mean Corpuscular Hemoglobin 30.8 pg (27.0-33.0); Mean Corpuscular Volume 92.7 fL (80.0-98.0); Mean Platelet Volume 10.7 fL (9.4-12.3); Monocytes Absolute Auto 0.7 X10*3/uL (0.1-1.2); Monocytes Percent Auto 9.5 % (2-11); Neutrophils Absolute Auto 4.2 x10*3/uL (2.0-8.3); Neutrophils Percent Auto 55.7 % (45-73); Platelet Count 250 X10*3/uL (160-400); Red Blood Count 4.22 X10*6/uL (4.20-5.50); Red Cell Distribution Width 14.4 % (11.0-16.0); White Blood Count 7.6 X10*3/uL (4.8-10.8)
[2024-02-05 14:51] LABS: Appearance Urine Clear; Color Urine Yellow; Glucose Urine UA Negative (Negative); Leukocyte Esterase Urine Negative (Negative); Nitrite Urine Negative (Negative); PH 6.5 (5.0-9.0); Specific Gravity - Urine 1.015 (1.005-1.025); Urine Blood Negative (Negative); Urine Ketones Negative (Negative); Urine Protein Negative (Neg-Trace)
[2024-02-05 14:54] LABS: Bacteria Urine None Seen (None Seen); Hyaline Casts Urine 0-2 /LPF (0-2); RBC Urine 0-2 /HPF (0-2); WBC Urine 0-5 /HPF (0-5)
[2024-02-05 15:17] LABS: Alanine Aminotransferase 26 U/L (0-31); Albumin Level 4.2 g/dL (3.5-5.0); Alkaline Phosphatase 51 U/L (39-117); Anion Gap 12 (12-20); Aspartate Amino Transferase 34 U/L (5-31); Bilirubin Total 0.3 mg/dL (0.0-1.0); Blood Urea Nitrogen 21 mg/dL (9-16); Calcium 9.2 mg/dL (8.4-10.2); Carbon Dioxide 25 mmol/L (22-29); Chloride 107 mmol/L (96-108); Estimated Glomerular Filt Rate > 60; Gamma Glutamyl Transpeptidase 16 U/L (7-33); Glucose Random 93 mg/dL (60-115); Lactate Dehydrogenase 223 U/L (122-220); Potassium 4.7 mmol/L (3.3-5.1); Sodium 139 mmol/L (135-145); Total Protein 7.1 g/dL (6.5-8.0)
[2024-02-05 15:22] LABS: Rheumatoid Factor < 13.0 IU/mL (<15.0)
[2024-02-05 15:24] LABS: Erythrocyte Sedimentation Rate 6 MM/HR (0-20)
[2024-02-05 15:39] LABS: Creatinine Urine 70.52 mg/dL; Total Protein Urine Random < 7 mg/dL (<12)
[2024-02-06 05:29] LABS: HBS Num1 0.57 mIU/mL (0-7.99); HBc Num1 0.13 S/CO (0.00-0.79); HBsAGNum1 0.32 S/CO (0.00-0.99); Hepatitis A Antibody IgM 0.18 Index (0-0.79); Hepatitis B Core Antibody Nonreactive (Nonreactive); Hepatitis B Surface Antigen Negative (Negative); ~HepC Num1 0.11 S/CO (0.00-0.79); ~Hepatitis A Antibody IgM Nonreactive (Nonreactive); ~Hepatitis B Surface Antibody NONREACTIVE (Nonreactive); ~Hepatitis C Antibody Nonreactive (Nonreactive)
[2024-02-06 12:33] LABS: Complement C3 64 mg/dL
[2024-02-07 19:59] LABS: Anti DNA DS Antibody 18 IU/mL; Antibody to SS-A Antigen <1.0 NEG AI (<1.0 NEG); Antibody to SS-B Antigen <1.0 NEG AI (<1.0 NEG); SM/Ribonucleoprotein Ab <1.0 NEG AI (<1.0 NEG); Smith Protein <1.0 NEG AI (<1.0 NEG)
[2024-02-07 21:48] LABS: Prot Elec - Albumin 4.2 g/dL (3.8-4.8); Prot Elec - Alpha1 0.2 g/dL (0.2-0.3); Prot Elec - Alpha2 0.7 g/dL (0.5-0.9); Prot Elec - Beta 1 0.4 g/dL (0.4-0.6); Prot Elec - Beta 2 0.3 g/dL (0.2-0.5); Prot Elec - Total Protein 6.8 g/dL (6.1-8.1)
[2024-02-08 14:49] LABS: TS Negative Control Passed; TS Panel A 6; TS Panel B 83; TS Positive Control Passed; TSpotTB Positive (Negative)
[2024-02-08 15:03] LABS: Anti Nuclear Antibody Screen NEGATIVE (NEGATIVE)
[2024-02-09 10:29] LABS: IgA 200 mg/dL (70-320); IgG 1096 mg/dL (600-1540); IgM 49 mg/dL (50-300)
[2024-02-09 15:34] LABS: Cyclic Citrullinated Peptide <16 UNITS
[2024-02-19 16:47] LABS: Cytosolic 5'nuc 1A Ab IgG <5 Units; Ej Ab <11 SI (<11); HMGCR Ab IgG <2 CU (<20); Jo-1 Ab <11 SI (<11); MDA5 Ab <11 SI (<11); Mi-2 alpha Ab <11 SI (<11); Mi-2 beta Ab <11 SI (<11); NXP-2 (MJ) Ab <11 SI (<11); Oj Ab <11 SI (<11); Pl-12 Ab <11 SI (<11); Pl-7 Ab <11 SI (<11); SRP Ab <11 SI (<11); TIF1 gamma Ab <11 SI (<11)
== END 2024-02-05 12:47 | disposition home or self-care (01) ==
LOC: HO.LAB 12:46
PROVIDERS: PCP Internal Medicine; Referring Provider Internal Medicine Cardiovascular Disease; Visit Provider Student in an Organized Health Care Education/Training Program
DX: Z11.7 Encounter for testing for latent tuberculosis infection (principal); Z11.59 Encounter for screening for other viral diseases; M32.9 Systemic lupus erythematosus, unspecified; R74.01 Elevation of levels of liver transaminase levels; M25.50 Pain in unspecified joint; R74.8 Abnormal levels of other serum enzymes; Z72.89 Other problems related to lifestyle
CPT/HCPCS: 36415; 80053; 81001; 82085; 82550; 82570; 82784; 82977; 83516; 83520; 83615; 84156; 84165; 84182; 85025; 85652; 86038; 86140; 86160; 86200; 86225; 86235; 86334; 86431; 86481; 86704; 86706; 86709; 86803; 87340; 99202

== ENCOUNTER 2024-03-14 12:27 | Outpatient (AMB) | payer MEDICARE, SELFPAY ==
--- NOTE | 2024-03-14 12:40 | A.OFFVIS_ITS ---
Vital Signs 03/14/24 12:44 Height 5 ft 3 in Weight 156 lb 8.451 oz BMI 27.7 BP 140/64 H Blood Pressure Location Lt brachial Position Sitting Pulse 55 Pulse Source Pulse Oximeter Pulse Oximetry (%) 94 Oxygen Delivery Method Room Air Intake Visit Reasons: CPK elevated/CM Intake Note: Patient presents for CPK. Feeling constant pain from hips down to toes. Allergies acetaminophen [From Tylenol-Codeine #3] Adverse Reaction (Severe, Verified 03/14/24 12:43) syncope codeine [From Tylenol-Codeine #3] Adverse Reaction (Severe, Verified 03/14/24 12:43) syncope oxycodone [From Percocet] Adverse Reaction (Severe, Verified 03/14/24 12:43) syncopee Medication List - Last Reconciled 03/14/24 by Arnol Torres MD ascorbate calcium (vitamin C) 500 mg PO DAILY aspirin 81 mg PO DAILY carvedilol 12.5 mg PO BID cholecalciferol (vitamin D3) 50 mcg PO DAILY isosorbide mononitrate ER 30 mg PO DAILY loratadine 10 mg PO DAILY losartan 50 mg PO DAILY HPI Comments Details: Patient returns for follow-up after completion of her diagnostic workup. Continues to have similar symptoms. Initial history: This is an 84-year-old female presents for evaluation of elevated CPK. Patient states that has been on pravastatin for approximately 6 years. Over the last 2 years she has been having bilateral hip and thigh soreness especially when exercising at the senior center. Her CPK was checked and it was approximately 700. Her pravastatin was held and her CPK trended down but did not normalize. She was referred by her boilers inspector. She states that gets bilateral hip and thigh pain especially with walking. Sitting down helps her pain. Leaning forward helps her pain. She states that she has generalized joint pain and stiffness in the morning, she has bilateral ankle pain. She takes ibuprofen 400 mg daily in the morning to help get her going. She states that she had lower back surgery years ago. Since she discontinued her statin approximately 7 months ago she did not note any significant improvement. Denies any weakness or pain of her shoulders. Denies any skin rashes, denies weight loss. She has a sister with leukemia, father had MS. [facility] Medical History Hyperlipidemia Hypertension Elevated CPK Surgical History History of cardiac catheterization H/O angioplasty Hx of hysterectomy H/O basal cell carcinoma excision H/O lumbar discectomy History of total left knee replacement Family History Mother Lung cancer Arthritis Father Multiple sclerosis Sister Arthritis Leukemia Social History Alcohol intake: former Patient Tobacco Use Status: Never used Tobacco Current occupational status: retired Review of Systems Const Reports fatigue and Reports weakness Eyes Reports dry eyes Resp Reports cough Musc Reports back pain, Reports arthralgias, Denies joint swelling and Reports stiffness Skin/Breast Denies rash and Reports unusual bruising Neuro Reports weakness Endo Reports fatigue Physical Exam Vital Signs: Last Vital Signs Pulse 55 03/14/24 12:44 BP 140/64 H 03/14/24 12:44 Pulse Ox 94 03/14/24 12:44 Oxygen Delivery Method Room Air 03/14/24 12:44 BMI result Body Mass Index 27.7 Const General: cooperative, healthy appearing and comfortable Nutritional Appearance: overweight Orientation/consciousness: patient oriented x3 Limitations: no limitations HEENT Head: Yes normocephalic and Yes atraumatic Mouth: moist mucous membranes Resp Effort & Inspection: normal respiratory effort and able to speak in complete sentences Cardio Rate: regular rate Skin Other: Very faint circular raised papular rashes on chin Neuro General: patient oriented x3 Extrem Other: Osteoarthritic changes of both hands with no swelling Bilateral wrist pain with full flexion Normal range of motion of elbows and shoulders without pain Proximal muscle strength 5/5 proximally all 4 limbs Normal nailfold capillaroscopy Positive straight leg raise test bilaterally Right knee crepitus No ankle swelling or tenderness bilaterally Assessment & Plan Assessment & Plan (1) Elevated CPK: Code(s): R74.8 - Abnormal levels of other serum enzymes Category: Medical Plan: This is an 84-year-old female since for evaluation of elevated CPK. Patient's CPK trended down when her pravastatin was discontinued however it did not normalize. 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 Patient however complains of generalized morning stiffness lasting approximately 20 minutes daily, pain in her ankles, takes ibuprofen 400 mg daily for the last 2 years. Comprehensive serology showed a positive dsDNA with C3 and C4. Myositis panel is negative. I do not see any signs of muscle weakness on exam. Patient's CPK seems to fluctuate. Some patients with lupus might have fluctuating CPK without any clinical significance. Will start hydroxychloroquine trial for possible mild lupus/UCTD Labs before next visit in 3 months (2) Lumbar spinal stenosis: Code(s): M48.061 - Spinal stenosis, lumbar region without neurogenic claudication Category: Medical Qualifiers: Neurogenic claudication status: with neurogenic claudication Qualified Code(s): M48.062 - Spinal stenosis, lumbar region with neurogenic claudication Plan: Ordered L-spine MRI to further evaluate (3) Long-term use of hydroxychloroquine: Code(s): Z79.899 - Other long term acute care registered nurse (current) drug therapy Category: Medical Plan: Discussed risk of retinopathy associated with hydroxychloroquine. Advised patient to follow-up with manager intensive care unit regularly. Plan I spent 47 minutes reviewing patient's chart, evaluating patient, ordering diagnostic workup, counseling patient and documenting in the chart Orders: Orders Anti DNA DS Antibody 3 Months M32.9 - Systemic lupus erythematosus, unspecified Complement C3 3 Months M32.9 - Systemic lupus erythematosus, unspecified Complement C4 3 Months M32.9 - Systemic lupus erythematosus, unspecified C Reactive Protein 3 Months M32.9 - Systemic lupus erythematosus, unspecified Erythrocyte Sedimentation Rate 3 Months M32.9 - Systemic lupus erythematosus, unspecified Protein Creatinine Ratio, Ur 3 Months M32.9 - Systemic lupus erythematosus, unspecified Creatine Kinase Total 3 Months R74.8 - Abnormal levels of other serum enzymes DNA Double Stranded-Crithidia 3 Months M32.9 - Systemic lupus erythematosus, unspecified UA w Microscopic 3 Months M32.9 - Systemic lupus erythematosus, unspecified MR lumbar spine wo con Today M48.061 - Spinal stenosis, lumbar region without neurogenic claudication Medications: New hydroxychloroquine Take 1 tab twice daily x5 days a week and 1 tab daily x2 days a week 48 tabs 2RF Coding Level of Care Code Est Pt Level 5 (52337) Complex EM visit Add On G2211 Diagnoses Elevated CPK R74.8 Spinal stenosis of lumbar region with neurogenic claudication M48.062 Neurogenic claudication status: with neurogenic claudication Long-term use of hydroxychloroquine Z79.899
[2024-03-14 12:44] VITALS: BP 140/64; PULSE 55; O2SAT 94; BMI 27.7
== END 2024-03-14 13:08 | disposition home or self-care (01) ==
PROVIDERS: PCP Internal Medicine; Visit Provider Student in an Organized Health Care Education/Training Program
DX: R74.8 Abnormal levels of other serum enzymes (principal); M48.062 Spinal stenosis, lumbar region with neurogenic claudication; Z79.899 Other long term (current) drug therapy
CPT/HCPCS: 99215; G2211

== ENCOUNTER → 2024-03-14 12:27 | Outpatient (BNVA) | payer MEDICARE, SELFPAY | PROVIDERS: PCP Internal Medicine; Visit Provider Student in an Organized Health Care Education/Training Program | DX: R74.8 Abnormal levels of other serum enzymes (principal); M48.062 Spinal stenosis, lumbar region with neurogenic claudication; Z79.899 Other long term (current) drug therapy | CPT/HCPCS: 99212 ==

== ENCOUNTER 2024-03-19 11:39 | Outpatient (REF) | payer MEDICARE, SELFPAY ==
[2024-03-19 13:58] LABS: Appearance Urine Clear; Color Urine Yellow; Glucose Urine UA Negative (Negative); Leukocyte Esterase Urine Moderate (2+) (Negative); Nitrite Urine Negative (Negative); PH 6.5 (5.0-9.0); Specific Gravity - Urine 1.015 (1.005-1.025); UMIC TRIGGER UACC YES; Urine Blood Negative (Negative); Urine Ketones Negative (Negative); Urine Protein Negative (Neg-Trace)
[2024-03-19 14:07] LABS: Bacteria Urine None Seen (None Seen); Hyaline Casts Urine 0-2 /LPF (0-2); RBC Urine 0-2 /HPF (0-2); UACC Culture Trigger YES; WBC Urine 21-50 /HPF (0-5)
== END 2024-03-19 11:40 | disposition home or self-care (01) ==
LOC: HO.LAB 11:39
PROVIDERS: PCP Internal Medicine; Visit Provider Internal Medicine
DX: R30.0 Dysuria (principal)
CPT/HCPCS: 81001; 87086

== ENCOUNTER 2024-04-11 18:52 | Outpatient (REF) | payer MEDICARE, SELFPAY ==
--- NOTE | ~2024-04-11 | MR_ITS ---
EXAMINATION: MR LUMBAR SPINE WITHOUT CONTRAST CLINICAL INFORMATION: Neurogenic claudication COMPARISON: None TECHNIQUE: MRI of the lumbar spine was obtained using routine sequences without contrast. 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 Lumbar dextroscoliosis. Straightening of the normal lumbar lordosis. Grade 1 retrolisthesis at L1-L2 and L5-S1. Multilevel mild chronic height loss of several vertebral bodies with scattered endplate Schmorl's nodes. Several intraosseous hemangiomata. Type I Modic endplate change at L5-S1 with additional milder multilevel type I Modic endplate change. Diffuse ventral disc osteophytes. Level by level detail as follows: L1-L2: Annular disc bulge with right eccentric disc osteophyte complex. Mild facet arthrosis and ligamentum flavum thickening. Moderate to severe spinal canal stenosis. Moderate right neural foraminal stenosis with mass effect along the exiting right L1 nerve root and minimal left neural foraminal encroachment. L2-L3: Annular disc bulge eccentric to the right with right ventral annular fissure. Mild facet arthrosis and ligamentum flavum thickening. Mild to moderate spinal canal and asymmetric left subarticular zone narrowing. Mild right without left neural foraminal encroachment and slight mass effect along the extraforaminal right L2 nerve root. L3-L4: Annular disc bulge/disc osteophyte complex. Moderate facet arthrosis and ligamentum flavum thickening. Moderate to severe spinal canal and subarticular zone narrowing. Possible punctate synovial cyst along the ventral aspect of the left facet joint projecting into the left neural foramen. Moderate to severe left neural foraminal stenosis with impingement of the exiting left L3 nerve root and moderate right neural foraminal stenosis with slight impingement along the exiting right L3 nerve root. L4-L5: Disc osteophyte complex with moderate facet arthrosis and ligamentum flavum thickening. Mild to moderate spinal canal and subarticular zone narrowing with compression of the traversing L5 nerve roots. Moderate to severe left and moderate right neural foraminal stenosis with mass effect along the exiting left greater than right L4 nerve roots. L5-S1: Right L5 hemilaminectomy. Disc osteophyte complex with left subarticular disc protrusion. Moderate facet arthrosis. No spinal canal stenosis, noting left subarticular zone narrowing with impression upon the traversing left S1 nerve root. Severe bilateral neural foraminal stenosis with compression of the exiting bilateral L5 nerve roots. The conus medullaris terminates at the level of L1-L2. The distal spinal cord is normal in appearance. Multilevel cyst. Redundancy of the cauda equina nerve roots related to high-grade spinal canal narrowing. No epidural fluid collection, hematoma, or mass. No significant abnormalities of the paraspinal musculature. Sigmoid colonic diverticulosis. The abdominal aorta is of normal contour and caliber. MR/MR lumbar spine wo con IMPRESSION: 1. 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 2. Advanced multilevel lumbar spondylosis with moderate to severe spinal canal stenosis at L1-L2 and L3-L4 and mild to moderate spinal canal stenosis at L2-L3 and L4-L5. Multilevel neural foraminal stenosis, worst and severe bilaterally at L5-S1 with compression of the exiting bilateral L5 nerve roots with additional moderate to severe neural foraminal narrowing and mass effect along exiting nerve roots as above.
== END 2024-04-11 18:53 | disposition home or self-care (01) ==
LOC: HO.MRI 18:52
PROVIDERS: PCP Internal Medicine; Visit Provider Student in an Organized Health Care Education/Training Program
DX: M48.061 Spinal stenosis, lumbar region without neurogenic claudication (principal)
CPT/HCPCS: 72148

== ENCOUNTER 2024-05-08 11:09 | Outpatient (AMB) | payer MEDICARE, SELFPAY ==
--- NOTE | 2024-05-08 11:17 | A.OFFVIS_ITS ---
Intake Visit Reasons: urinary incontinence Intake Note: New Patient presents for initial visit for incontinence Urology Medications: none Blood Thinner: aspirin PVR: 32ml's Lead Injection Mold Technician Required: No Accompanied by: Self / Same As Patient Allergies acetaminophen [From Tylenol-Codeine #3] Adverse Reaction (Severe, Verified 05/08/24 20:53) syncope codeine [From Tylenol-Codeine #3] Adverse Reaction (Severe, Verified 05/08/24 20:53) syncope oxycodone [From Percocet] Adverse Reaction (Severe, Verified 05/08/24 20:53) syncopee Medication List - Last Reconciled 05/08/24 by BON Forman- ascorbate calcium (vitamin C) 500 mg PO DAILY aspirin 81 mg PO DAILY carvedilol 12.5 mg PO BID cholecalciferol (vitamin D3) 50 mcg PO DAILY estradiol 0.01%(0.1mg/gram) apply pea sized amount to urethra daily for one month and then 3 times a week thereafter. 90 days hydroxychloroquine Take 1 tab twice daily x5 days a week and 1 tab daily x2 days a week isosorbide mononitrate ER 30 mg PO DAILY loratadine 10 mg PO DAILY losartan 50 mg PO DAILY HPI Comments Details: Jacy is a very pleasant 84-year-old female patient of Dr. Del Real. She has a past medical history of hypertension and hyperlipidemia. She presents to the office today as a new patient for ongoing lower urinary tract symptoms. In discussion with the patient today she reports prior to approximately 1 week ago she had been experiencing urinary urgency and frequency with episodes of incontinence if not near a bathroom however feels these symptoms have subsided. She reports having followed up with her PCP at which time recommendations were made for urology referral for further assessment evaluation. She reports noting blood on her peripad however is unsure if this was vaginally or from her urethra. On exam today severe vaginal atrophy noted difficult to insert speculum however caruncle is present. In office urinalysis results reviewed with the patient today. PVR 32 mL. We discussed at length potential causes of lower urinary tract symptoms patient had been experiencing. She does report having a nurse gynecology and will call for appointment. She otherwise denies nocturia, hematuria, dysuria, foul smelling urine, changes to urinary stream, flank pain, fever, and or chills. She is happy with her current voiding parameters. She otherwise offers no other issues or concerns at this time. [facility] Medical History Hyperlipidemia Hypertension Elevated CPK Surgical History History of cardiac catheterization H/O angioplasty Hx of hysterectomy H/O basal cell carcinoma excision H/O lumbar discectomy History of total left knee replacement Family History Mother Lung cancer Arthritis Father Multiple sclerosis Sister Arthritis Leukemia Social History Alcohol intake: former Patient Tobacco Use Status: Never used Tobacco Current occupational status: retired Review of Systems Const All systems reviewed & are unremarkable except as noted in HPI and below Physical Exam Const General: cooperative, healthy appearing, comfortable, no acute distress, well developed, alert and awake Orientation/consciousness: patient oriented x3 Limitations: no limitations HEENT Head: Yes normal to inspection, Yes normocephalic and Yes atraumatic Ears: hearing grossly normal bilaterally Eyes General: appearance normal, both eyes and all related structures Neck Neck: Yes normal visual inspection and Yes trachea midline Chest Chest palpation & inspection: normal inspection of the chest Resp Effort & Inspection: normal respiratory effort and able to speak in complete sentences Cardio Rate: regular rate GI Inspection: Yes normal to inspection General: Yes no CVA tenderness Back/Spine/Pelvis Back: no CVA tenderness Skin General skin exam: no rashes or lesions noted Neuro General: patient oriented x3 Extrem General: Yes normal to inspection Psych Appearance: grossly normal and well kempt Mental Status: mental status grossly normal Speech and movement: Normal speech and movement present and Clear speech present Affect: normal affect Attitude: cooperative Thought process: Normal thought process present Thought content: Normal thought content present Insight: Fair insight present (Psych) Judgement: Fair judgement present (Psych) Office Procedures Post Void Residual Post Residual Void Post Void Residual (PVR): 32 [id number] Void Residual by ultrasound Results AMB Urinalysis, Automated UA Leukoctes 70 Moi/uL Last Edit by Michelle Linares on 05/08/24 11:40 UA Nitrite Last Edit by Michelle Linares on 05/08/24 11:40 UA Urobilinogen 0.2 mg/dL Last Edit by Michelle Cardenascrystal on 05/08/24 11:40 UA Protein 0 mg/dL Last Edit by Michelle Cardenascrystal on 05/08/24 11:40 UA pH 7.0 Last Edit by Michelle Cardenascrystal on 05/08/24 11:40 UA Blood 0 Francisco/uL Last Edit by Yulisahomero Theresacrystal on 05/08/24 11:40 UA Specific Story 1.015 Last Edit by Michelle Cardenascrystal on 05/08/24 11:40 UA Ketone Negative Last Edit by Michelle Cardenascrystal on 05/08/24 11:40 UA Bilirubin 0 mg/dL Last Edit by Michelle Cardenascrystal on 05/08/24 11:40 UA Glucose 0 mg/dL Last Edit by Yulisahomero Theresacrystal on 05/08/24 11:40 Results Reviewed Results Reviewed: Laboratory Last Values Urine pH (Auto) 7.0 05/08/24 11:38 Specific Story (Auto) 1.015 05/08/24 11:38 Urine Protein (Auto) 0 mg/dL 05/08/24 11:38 Glucose (UA)(Auto) 0 mg/dL 05/08/24 11:38 Urine Ketones (Auto) Negative 05/08/24 11:38 Urine Blood (Auto) 0 Francisco/uL 05/08/24 11:38 Urine Bilirubin (Auto) 0 mg/dL 05/08/24 11:38 Urine Urobilinogen (Auto) 0.2 mg/dL 05/08/24 11:38 Leukocyte Esterase (Auto) 70 Moi/uL 05/08/24 11:38 Assessment & Plan Assessment & Plan (1) Microscopic hematuria: Code(s): R31.29 - Other microscopic hematuria Category: Medical (2) Urethral caruncle: Code(s): N36.2 - Urethral caruncle Category: Medical (3) Lower urinary tract symptoms: Code(s): R39.9 - Unspecified symptoms and signs involving the genitourinary system Category: Medical (4) Vaginal atrophy: Code(s): N95.2 - Postmenopausal atrophic vaginitis Category: Medical Plan In office urinalysis results reviewed with the patient today; as noted above. PVR 32 mL. We discussed at length vaginal atrophy and urethral caruncle. Start Estrace cream as discussed and prescribed. Patient reports lower urinary tract symptoms she had been experiencing has since subsided. Discussed possible near future in office cystoscopy and or urodynamics for further assessment evaluation. Patient will call nurse gynecology for appointment for further assessment evaluation. Discussed possible near future retroperitoneal ultrasound for further assessment evaluation if symptoms arise. Follow-up in 3 months with PVR; or sooner with any issues, concerns, and or questions. Orders: Orders AMB Urinalysis Automated Today Z13.9 - Encounter for screening, unspecified AMB Post Void Residual by ultrasound Today Z13.9 - Encounter for screening, unspecified Medications: New estradiol 0.01%(0.1mg/gram) apply pea sized amount to urethra daily for one month and then 3 times a week thereafter. 90 days 42.5 grams 1RF Patient Instructions: The patient had an opportunity to ask questions regarding the treatment plan. All questions were answered. Physical exam, labs, and imaging were discussed and reviewed in detail. As well as risks, benefits, and discussion of treatment choices. No major barriers to understanding were identified. The patient expressed understanding and agreement with the above treatment plan. The patient was made aware they should contact our office by phone for worsening of their current condition, the appearance of new symptoms, or with any questions or concerns. Compliance is encouraged with any medications and follow up testing that is ordered. It is a privilege to be allowed the opportunity to participate in? your urological care.? Again, if you have any questions or concerns If you have any questions or concerns please do not hesitate to contact me. The office is [phone]. This note is constructed using voice recognition software. While every effort has been made to ensure accuracy drying unit felting machine operator errors may have been included. Yours sincerely, ALYX Forman Coding Level of Care Code New Pt Level 4 (40374) Diagnoses Microscopic hematuria R31.29 Urethral caruncle N36.2 Lower urinary tract symptoms R39.9 Vaginal atrophy N95.2 CPT Codes Post Residual Void - PVR CPT Code: 78752-Qrrt Void Residual by ultrasound ([id number])
== END 2024-05-08 12:00 | disposition home or self-care (01) ==
PROVIDERS: PCP Internal Medicine; Visit Provider Nurse Practitioner Family
DX: R31.29 Other microscopic hematuria (principal); N36.2 Urethral caruncle; R39.9 Unspecified symptoms and signs involving the genitourinary system; N95.2 Postmenopausal atrophic vaginitis; Z13.9 Encounter for screening, unspecified
CPT/HCPCS: 99204

== ENCOUNTER → 2024-05-08 11:09 | Outpatient (BNVA) | payer MEDICARE, SELFPAY | PROVIDERS: PCP Internal Medicine; Visit Provider Nurse Practitioner Family | DX: R31.29 Other microscopic hematuria (principal); R39.9 Unspecified symptoms and signs involving the genitourinary system; N36.2 Urethral caruncle; N95.2 Postmenopausal atrophic vaginitis | CPT/HCPCS: 51798; 81003; 99202 ==

== ENCOUNTER 2024-06-05 09:29 | Outpatient (REF) | payer MEDICARE, SELFPAY ==
[2024-06-05 10:59] LABS: MANUAL DIFF FLAG NO
[2024-06-05 11:12] LABS: Basophils Absolute Auto 0.1 X10*3/uL (0.0-0.2); Basophils Percent Auto 0.5 % (0-2); Eosinophils Absolute Auto 0.2 X10*3/uL (0.0-0.4); Eosinophils Percent Auto 1.7 % (0-4); Hematocrit 38.2 % (37.0-47.0); Hemoglobin 12.7 g/dl (12.0-16.0); Imm Gran Abs Auto 0.07 X10*3/uL (0.00-0.03); Imm Gran Pct Auto 0.7 % (0.0-0.4); Lymphocytes Absolute Auto 2.2 X10*3/uL (1.2-4.9); Lymphocytes Percent Auto 21.5 % (20-40); Mean Corpuscular HGB Conc 33.2 g/dl (31.0-35.0); Mean Corpuscular Hemoglobin 31.7 pg (27.0-33.0); Mean Corpuscular Volume 95.3 fL (80.0-98.0); Mean Platelet Volume 10.6 fL (9.4-12.3); Monocytes Percent Auto 10.1 % (2-11); Neutrophils Absolute Auto 6.7 x10*3/uL (2.0-8.3); Neutrophils Percent Auto 65.5 % (45-73); Platelet Count 226 X10*3/uL (160-400); Red Blood Count 4.01 X10*6/uL (4.20-5.50); Red Cell Distribution Width 14.6 % (11.0-16.0); White Blood Count 10.3 X10*3/uL (4.8-10.8)
[2024-06-05 11:21] LABS: Alanine Aminotransferase 23 U/L (0-31); Albumin Level 3.6 g/dL (3.5-5.0); Alkaline Phosphatase 36 U/L (39-117); Anion Gap 12 (12-20); Aspartate Amino Transferase 21 U/L (5-31); Bilirubin Total 0.5 mg/dL (0.0-1.0); Blood Urea Nitrogen 23 mg/dL (9-16); C Reactive Protein 0.86 mg/dL (< or = 0.50); Carbon Dioxide 28 mmol/L (22-29); Chloride 107 mmol/L (96-108); Estimated Glomerular Filt Rate 47; Glucose Random 85 mg/dL (60-115); Potassium 4.3 mmol/L (3.3-5.1); Sodium 143 mmol/L (135-145); Total Protein 6.2 g/dL (6.5-8.0)
[2024-06-05 11:52] LABS: Folate > 20.0 ng/mL (> or = 4.0); Vitamin B12 573 pg/mL (200-900)
[2024-06-05 12:34] LABS: Erythrocyte Sedimentation Rate 5 MM/HR (0-20)
== END 2024-06-05 09:30 | disposition home or self-care (01) ==
LOC: HO.10HDL 09:29
PROVIDERS: Visit Provider Internal Medicine
DX: I10 Essential (primary) hypertension (principal); R53.1 Weakness
CPT/HCPCS: 36415; 80053; 82550; 82607; 82746; 85025; 85652; 86140

== ENCOUNTER 2024-06-28 11:05 | Outpatient (AMB) | payer MEDICARE, SELFPAY ==
--- NOTE | 2024-06-28 11:14 | MHC.OFFVIS ---
Vital Signs 06/28/24 11:22 Height 5 ft 3 in Weight 157 lb 10.088 oz BMI 27.9 BP 130/64 Blood Pressure Location Lt brachial Position Sitting Pulse 58 Pulse Source Pulse Oximeter Pulse Oximetry (%) 96 Oxygen Delivery Method Room Air Intake Visit Reasons: SLE/spinal stenosis/CM Intake Note: Patient presents for SLE/Spinal Stenosis. Allergies hydroxychloroquine Allergy (Severe, Verified 06/28/24 11:20) Diarrhea acetaminophen [From Tylenol-Codeine #3] Adverse Reaction (Severe, Verified 06/28/24 11:20) syncope codeine [From Tylenol-Codeine #3] Adverse Reaction (Severe, Verified 06/28/24 11:20) syncope oxycodone [From Percocet] Adverse Reaction (Severe, Verified 06/28/24 11:20) syncopee Medication List - Last Reconciled 06/28/24 by Arnol Torres MD ascorbate calcium (vitamin C) 500 mg PO DAILY aspirin 81 mg PO DAILY carvedilol 12.5 mg PO BID cholecalciferol (vitamin D3) 50 mcg PO DAILY estradiol 0.01%(0.1mg/gram) apply pea sized amount to urethra daily for one month and then 3 times a week thereafter. 90 days isosorbide mononitrate ER 30 mg PO DAILY loratadine 10 mg PO DAILY losartan 50 mg PO DAILY rosuvastatin 5 mg PO DAILY HPI Comments Details: Patient returns for follow-up. She could not tolerate hydroxychloroquine after a few days due to significant GI symptoms. States that her low back hips and thighs are improving. She has gone to 6 sessions of PT. three weeks ago she was having worsening bilateral hip pain, worse on the left. She reached out to her PCP Dr. Del Real and was prescribed prednisone 20 mg daily for about 2 weeks with good results. She has an appointment with spine surgeon Dr. Leif Gonzales next month. Initial history: This is an 84-year-old female presents for evaluation of elevated CPK. Patient states that has been on pravastatin for approximately 6 years. Over the last 2 years she has been having bilateral hip and thigh soreness especially when exercising at the [facility]. Her CPK was checked and it was approximately 700. Her pravastatin was held and her CPK trended down but did not normalize. She was referred by her digital program manager. She states that gets bilateral hip and thigh pain especially with walking. Sitting down helps her pain. Leaning forward helps her pain. She states that she has generalized joint pain and stiffness in the morning, she has bilateral ankle pain. She takes ibuprofen 400 mg daily in the morning to help get her going. She states that she had lower back surgery years ago. Since she discontinued her statin approximately 7 months ago she did not note any significant improvement. Denies any weakness or pain of her shoulders. Denies any skin rashes, denies weight loss. She has a sister with leukemia, father had MS. PFSH Medical History Hyperlipidemia Hypertension Elevated CPK Surgical History History of cardiac catheterization H/O angioplasty Hx of hysterectomy H/O basal cell carcinoma excision H/O lumbar discectomy History of total left knee replacement Family History Mother Lung cancer Arthritis Father Multiple sclerosis Sister Arthritis Leukemia Social History Alcohol intake: former Patient Tobacco Use Status: Never used Tobacco Current occupational status: retired Review of Systems [employer] Details: Bilateral thigh heaviness Reports back pain and Reports radiating pain into limb Physical Exam Vital Signs: Last Vital Signs Pulse 58 06/28/24 11:22 BP 130/64 06/28/24 11:22 Pulse Ox 96 06/28/24 11:22 Oxygen Delivery Method Room Air 06/28/24 11:22 BMI result Body Mass Index 27.9 Const General: cooperative, healthy appearing and comfortable Nutritional Appearance: overweight Orientation/consciousness: patient oriented x3 Limitations: no limitations HEENT Head: Yes normocephalic and Yes atraumatic Mouth: moist mucous membranes Resp Effort & Inspection: normal respiratory effort and able to speak in complete sentences Cardio Rate: regular rate Skin Other: No rashes today Neuro General: patient oriented x3 Extrem Other: Osteoarthritic changes of both hands with no swelling No active synovitis Normal range of motion of elbows and shoulders without pain Proximal muscle strength 5/5 proximally all 4 limbs Normal nailfold capillaroscopy Bilateral trochanteric bursa area tenderness with negative Rickey's test, tenderness as more prominent on the left No ankle swelling or tenderness bilaterally Assessment & Plan Assessment & Plan (1) Elevated CPK: Code(s): R74.8 - Abnormal levels of other serum enzymes Category: Medical Plan: This is an 84-year-old female since for evaluation of elevated CPK. Patient's CPK trended down when her pravastatin was discontinued however it did not normalize. Her bilateral hip and thigh pain can be related to neurogenic claudication + trochanteric bursitis. 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 Patient could not tolerate hydroxychloroquine. At this time I do not see any reason to push for DMARDs. Continue to monitor patient clinically Check labs before next visit in 6 months (2) Lumbar spinal stenosis: Code(s): M48.061 - Spinal stenosis, lumbar region without neurogenic claudication Category: Medical Qualifiers: Neurogenic claudication status: with neurogenic claudication Qualified Code(s): M48.062 - Spinal stenosis, lumbar region with neurogenic claudication Plan: Confirmed with L-spine MRI. She has an appointment with spine surgeon next month (3) Greater trochanteric bursitis of both hips: Code(s): M70.61 - Trochanteric bursitis, right hip; M70.62 - Trochanteric bursitis, left hip Category: Medical Plan: Improved with prednisone taper and physical therapy. Advised patient that if it not improve, she can call our office and we can schedule her for an injection Plan I spent 27 minutes reviewing patient's chart, evaluating patient, ordering diagnostic workup, counseling patient and documenting in the chart Coding Level of Care Code Est Pt Level 4 (20149) Diagnoses Elevated CPK R74.8 Spinal stenosis of lumbar region with neurogenic claudication M48.062 Neurogenic claudication status: with neurogenic claudication Greater trochanteric bursitis of both hips M70.61; M70.62
[2024-06-28 11:22] VITALS: BP 130/64; PULSE 58; O2SAT 96; BMI 27.9
== END 2024-06-28 11:44 | disposition home or self-care (01) ==
PROVIDERS: PCP Internal Medicine; Visit Provider Student in an Organized Health Care Education/Training Program
DX: R74.8 Abnormal levels of other serum enzymes (principal); M48.062 Spinal stenosis, lumbar region with neurogenic claudication; M70.61 Trochanteric bursitis, right hip; M70.62 Trochanteric bursitis, left hip
CPT/HCPCS: 99214

== ENCOUNTER → 2024-06-28 11:05 | Outpatient (BNVA) | payer MEDICARE, SELFPAY | PROVIDERS: PCP Internal Medicine; Visit Provider Student in an Organized Health Care Education/Training Program | DX: M48.062 Spinal stenosis, lumbar region with neurogenic claudication (principal); M70.61 Trochanteric bursitis, right hip; M70.62 Trochanteric bursitis, left hip; R74.8 Abnormal levels of other serum enzymes | CPT/HCPCS: 99212 ==

== ENCOUNTER 2024-08-07 10:32 | Outpatient (AMB) | payer MEDICARE, SELFPAY ==
--- NOTE | 2024-08-07 10:36 | MHC.OFFVIS ---
Intake Visit Reasons: 3m/PVR Intake Note: Patient presents for follow up visit for incontinence Urology Medications: none Blood Thinner: aspirin PVR: 0ml's [employer] Experience Strategy Required: No Accompanied by: Self / Same As Patient Allergies hydroxychloroquine Allergy (Severe, Verified 08/07/24 11:16) Diarrhea acetaminophen [From Tylenol-Codeine #3] Adverse Reaction (Severe, Verified 08/07/24 11:16) syncope codeine [From Tylenol-Codeine #3] Adverse Reaction (Severe, Verified 08/07/24 11:16) syncope oxycodone [From Percocet] Adverse Reaction (Severe, Verified 08/07/24 11:16) syncopee Medication List - Last Reconciled 08/07/24 by BON Forman-ADRIA ascorbate calcium (vitamin C) 500 mg PO DAILY aspirin 81 mg PO DAILY carvedilol 12.5 mg PO BID cholecalciferol (vitamin D3) 50 mcg PO DAILY estradiol 0.01%(0.1mg/gram) apply pea sized amount to urethra daily for one month and then 3 times a week thereafter. 90 days isosorbide mononitrate ER 30 mg PO DAILY loratadine 10 mg PO DAILY losartan 50 mg PO DAILY rosuvastatin 5 mg PO DAILY HPI Comments Details: Jacy is a very pleasant 84-year-old female patient of Dr. Del Real. She has a past medical history of hypertension and hyperlipidemia. She presents to the office today for follow-up. Of note, patient was seen approximately 3 months ago as a new patient for ongoing lower urinary tract symptoms at which time the patient was started on Estrace cream. In discussion with the patient today she reports at a urological standpoint she has been doing significantly better however she discusses the recent loss of her sister earlier this week and will be undergoing back surgery with Dr. Gonzales the beginning of September. She also reports to be following up with her ict developer here at [facility]. During last office visit it was noted that patient had severe vaginal atrophy and a caruncle. She reports compliance with Estrace cream in discusses how helpful this has been in the last 3 months. In office urinalysis results reviewed with the patient today. PVR 0 mL. We discussed at length potential causes of lower urinary tract symptoms patient had been experiencing. She otherwise denies nocturia, hematuria, dysuria, foul smelling urine, changes to urinary stream, flank pain, fever, and or chills. She is happy with her current voiding parameters. She otherwise offers no other issues or concerns at this time. FOR[facility] Medical History Hyperlipidemia Hypertension Elevated CPK Surgical History History of cardiac catheterization H/O angioplasty Hx of hysterectomy H/O basal cell carcinoma excision H/O lumbar discectomy History of total left knee replacement Family History Mother Lung cancer Arthritis Father Multiple sclerosis Sister Arthritis Leukemia Social History Alcohol intake: former Patient Tobacco Use Status: Never used Tobacco Current occupational status: retired Review of Systems Const All systems reviewed & are unremarkable except as noted in HPI and below Physical Exam Const General: cooperative, healthy appearing, comfortable, no acute distress, well developed, alert and awake Orientation/consciousness: patient oriented x3 Limitations: no limitations HEENT Head: Yes normal to inspection, Yes normocephalic and Yes atraumatic Ears: hearing grossly normal bilaterally Eyes General: appearance normal, both eyes and all related structures Neck Neck: Yes normal visual inspection and Yes trachea midline Chest Chest palpation & inspection: normal inspection of the chest Resp Effort & Inspection: normal respiratory effort and able to speak in complete sentences Cardio Rate: regular rate GI Inspection: Yes normal to inspection General: Yes no CVA tenderness Back/Spine/Pelvis Back: no CVA tenderness Skin General skin exam: no rashes or lesions noted Neuro General: patient oriented x3 Extrem General: Yes normal to inspection Psych Appearance: grossly normal and well kempt Mental Status: mental status grossly normal Speech and movement: Normal speech and movement present and Clear speech present Affect: normal affect Attitude: cooperative Thought process: Normal thought process present Thought content: Normal thought content present Insight: Fair insight present (Psych) Judgement: Fair judgement present (Psych) Office Procedures Post Void Residual Post Residual Void Post Void Residual (PVR): 0 48068-Nopa Void Residual by ultrasound Results AMB Urinalysis, Automated UA Leukoctes 0 Moi/uL Last Edit by Michelle Linares on 08/07/24 11:06 UA Nitrite Last Edit by Michelle Linares on 08/07/24 11:06 UA Urobilinogen 0.2 mg/dL Last Edit by Michelle Linares on 08/07/24 11:06 UA Protein 0 mg/dL Last Edit by Michelle Linares on 08/07/24 11:06 UA pH 7.0 Last Edit by Michelle Linares on 08/07/24 11:06 UA Blood 0 Francisco/uL Last Edit by Michelle Linares on 08/07/24 11:06 UA Specific [place] 1.015 Last Edit by Yulisae Vijay on 08/07/24 11:06 UA Ketone Negative Last Edit by Michelle Linares on 08/07/24 11:06 UA Bilirubin 0 mg/dL Last Edit by Michelle Linares on 08/07/24 11:06 UA Glucose 0 mg/dL Last Edit by Michelle Linares on 08/07/24 11:06 Results Reviewed Results Reviewed: Laboratory Last Values Urine pH (Auto) 7.0 08/07/24 11:04 Specific [place] (Auto) 1.015 08/07/24 11:04 Urine Protein (Auto) 0 mg/dL 08/07/24 11:04 Glucose (UA)(Auto) 0 mg/dL 08/07/24 11:04 Urine Ketones (Auto) Negative 08/07/24 11:04 Urine Blood (Auto) 0 Francisco/uL 08/07/24 11:04 Urine Bilirubin (Auto) 0 mg/dL 08/07/24 11:04 Urine Urobilinogen (Auto) 0.2 mg/dL 08/07/24 11:04 Leukocyte Esterase (Auto) 0 Moi/uL 08/07/24 11:04 Assessment & Plan Assessment & Plan (1) Vaginal atrophy: Code(s): N95.2 - Postmenopausal atrophic vaginitis Category: Medical (2) Lower urinary tract symptoms: Code(s): R39.9 - Unspecified symptoms and signs involving the genitourinary system Category: Medical (3) Urethral caruncle: Code(s): N36.2 - Urethral caruncle Category: Medical (4) Microscopic hematuria: Code(s): R31.29 - Other microscopic hematuria Category: Medical Plan In office urinalysis results reviewed with the patient today; as noted above. PVR 0 mL. We discussed vaginal atrophy and urethral caruncle. Continue Estrace cream as discussed and prescribed; refill provided Patient reports significant improvement in lower urinary tract symptoms she had been experiencing. She currently denies any bothersome urinary issues or concerns. She is happy with her current voiding parameters. Follow-up in 1 year with PVR; or sooner with any issues, concerns, and or questions. Orders: Orders AMB Urinalysis Automated Today Z13.9 - Encounter for screening, unspecified AMB Post Void Residual by ultrasound Today R39.9 - Unspecified symptoms and signs involving the genitourinary system Medications: Refilled estradiol 0.01%(0.1mg/gram) apply pea sized amount to urethra daily for one month and then 3 times a week thereafter. 90 days 42.5 grams 3RF Patient Instructions: The patient had an opportunity to ask questions regarding the treatment plan. All questions were answered. Physical exam, labs, and imaging were discussed and reviewed in detail. As well as risks, benefits, and discussion of treatment choices. No major barriers to understanding were identified. The patient expressed understanding and agreement with the above treatment plan. The patient was made aware they should contact our office by phone for worsening of their current condition, the appearance of new symptoms, or with any questions or concerns. Compliance is encouraged with any medications and follow up testing that is ordered. It is a privilege to be allowed the opportunity to participate in? your urological care.? Again, if you have any questions or concerns If you have any questions or concerns please do not hesitate to contact me. The office is [phone]. This note is constructed using voice recognition software. While every effort has been made to ensure accuracy student services dean errors may have been included. Yours sincerely, ALYX Forman Coding Level of Care Code Est Pt Level 3 (57627) Complex EM visit Add On G2211 Diagnoses Vaginal atrophy N95.2 Lower urinary tract symptoms R39.9 Urethral caruncle N36.2 Microscopic hematuria R31.29 CPT Codes Post Residual Void - PVR CPT Code: 35673-Fdbe Void Residual by ultrasound ([id number])
--- OUTSIDE RECORDS SUMMARY | 2024-08-13 17:42 | XMS_ITS | Continuity of Care Document ---
Author Organization [facility] y Address [address] [place] [address] Amanda harley, [address] [place] [address]- Care Team Providers Care Conference Organizer Name Role Phone Cayetano Del Real MD Primary Care Phys[id number] Date(s): 07/25/24 - 08/01/24 [facility] [address] [place] [address] Drive [address] [place], [place] [address] Attending Physician: Leif Gonzales MD Referring Physician: Cayetano Del Real MD Encounter Type: Office Visit Allergies, Adverse Reactions, Alerts Substance Criticality Severity Reaction Reaction Severity Status morphine 1 Passed out Active lisinopril Dry cough Active Tylenol with Codeine 2 Dizzy Active Percocet 5/325 3 Dizzy Act sariah 1pt states very sensitive to long acting pain medicine I get dizzy and pass out 2pt states I'm very sensitive to pain medicine I get dizzy and can pass out 3pt states i'm very sensitive to pain medice , I get dizzy and pass out Medications acetaminophen 325 mg oral tablet 650 mg, By Mouth, Every 6 hours, Refills 0, Maintenance, 05/04/17 7:43:15 AM EDT Start Date: 05/04/17 Status: Ordered Repeat number: 1 Aspirin Tablet 325 mg, By Mouth, 2 times a day, Refills 0, Maintenance, 05/04/17 7:42:20 AM EDT Start Date: 05/04/17 Status: Ordered Repeat number: 1 Citracal Tablet 950 mg, By Mouth, 3 times a day, Maintenance, 08/17/15 7:45:14 AM EST Start Date: 08/17/15 Status: Ordered Repeat number: 1 Coreg 12.5 mg oral tablet 1 tablet = 12.5 mg, By Mouth, 2 times a day, # 180 tablet, 3 Refills, Maintenance, 08/17/15 8:59:08AM EST, Tablet, [facility]/pharmacy #[id number] Start Date: 08/17/15 Status: Ordered Quantity: 180.0 Unit: tablet Repeat number: 4 Crestor 5 mg oral tablet 1 tablet = 5 mg, By Mouth, Daily, 0 Refills, Maintenance, 07/25/24 3:25:00 PM EST, Partial fill upon patient request if the prescription is for a schedule II opioid drug. Start Date: 07/25/24 Status: Ordered Repeat number: 1 Dilaudid 2 mg oral tablet = 1 mg, By Mouth, Every 4 hours, PRN Pain , Moderate, 0 Refills, Maintenance, 05/04/17 7:43:33 AM EDT, Tablet Start Date: 05/04/17 Status: Ordered Repeat number: 1 Dilaudid 2 mg oral tablet = 2 mg, By Mouth, Every 4 hours, PRN Pain , Severe, 0 Refills, Maintenance, 05/04/17 7:43:40 AM EDT,Tablet Start Date: 05/04/17 Status: Ordered Repeat number: 1 docusate sodium 100 mg oral capsule 100 mg, 1, capsule, By Mouth, 2 times a day, Refills 0, Maintenance, 05/04/17 7:43:31 AM EDT Start Date: 05/04/17 Status: Ordered Repeat number: 1 Loratadine By Mouth, Daily, Refills 0, Maintenance, 07/25/24 3:24:00 PM EST, Partial fill upon patient requestif the prescription is for a schedule II opioid drug. Start Date: 07/25/24 Status: Ordered Repeat number: 1 Losartan = 50 mg, By Mouth, Daily, 0 Refills, Maintenance, 08/16/15 7:41:00 AM EST Start Date: 08/16/15 Status: Ordered Repeat number: 1 Maalox Plus Liquid 30 mL, By Mouth, Every 4 hours, PRN Nausea & Vomiting, 0 Refills, Maintenance, 05/04/17 7:43:23 AM EDT, Suspension Start Date: 05/04/17 Status: Ordered Repeat number: 1 Milk of Magnesia Liquid 30 mL, By Mouth, Daily, PRN Constipation, 0 Refills, Maintenance, 05/04/17 7:43:48 AM EDT, Suspension Start Date: 05/04/17 Status: Ordered Repeat number: 1 MiraLax Powder 1 pack/packet = 17 Gm, By Mouth, Daily, 0 Refills, Maintenance, 05/04/17 7:43:50 AM EDT, Powder Start Date: 05/04/17 Status: Ordered Repeat number: 1 Multivitamin 0 Refills, Maintenance, 07/25/24 3:24:00 PM EST, Partial fill upon patient request if the prescription is for a schedule II opioid drug. Start Date: 07/25/24 Status: Ordered Repeat number: 1 Norvasc 5 mg oral tablet 1 tablet = 5 mg, By Mouth, Daily, # 30 tablet, 3 Refills, Maintenance, 08/17/15 8:58:54 AM EST, Tablet, [facility]/pharmacy #[id number] Start Date: 08/17/15 Stop Date: 12/15/15 Status: Ordered Quantity: 30.0 Unit: tablet Repeat number: 4 omeprazole 40 mg, By Mouth, Daily, Maintenance, 05/04/17 7:43:52 AM EDT, omeprazole Start Date: 05/04/17 Status: Ordered Repeat number: 1 pravastatin 40 mg oral tablet 1 tablet = 40 mg, By Mouth, Daily, # 30 tablet, 3 Refills, Maintenance, 08/17/15 8:58:39 AM EST, Tablet, [facility]/pharmacy #[id number] Start Date: 08/17/15 Stop Date: 12/15/15 Status: Ordered Quantity: 30.0 Unit: tablet Repeat number: 4 senna 187 mg oral tablet 1 tablet = 8.6 mg, By Mouth, Daily at bedtime, 0 Refills, Maintenance, 05/04/17 7:43:55 AM EDT, Tablet Start Date: 05/04/17 Status: Ordered Repeat number: 1 Vitamin C 0 Refills, Maintenance, 08/16/15 7:44:00 AM EST Start Date: 08/16/15 Status: Ordered Repeat number: 1 Vitamin D3 1000 intl units oral tablet 1 tablet = 1,000 International_Units, By Mouth, Daily, # 30 tablet, 0 Refills, Maintenance, 08/17/15 7:44:58 AM EST, Tablet Start Date: 08/17/15 Status: Ordered Quantity: 30.0 Unit: tablet Repeat number: 1 Vital Signs Most recent to oldest [Reference Range]: 1 Height 160 cm (07/25/24 3:20 PM) Weight 70.5 kg (07/25/24 3:20 PM) Body Mass Index [18.5-24.99 kg/m2] 27.54 kg/m2 *H* (07/25/24 3:20 PM) Patient Care team information Care Team Personnel Name: Cayetano Del Real MD Position: [facility] Outreach Member Role: PCP Address: [address] [place] [address] [address]ima TOWNSEND [place], [place] [address] Telecom: Name: Abhi Darnell RN Position: S RN Member Role: Primary Care Nurse Name: Karla Gabriel RN Position: [facility] RN Member Role: Primary Care Nurse Care Team Related Persons Name: GUERITA AREVALO Insurance Providers Guarantor name: [employer] Health Plan Information #: 1 Payer: [employer] Member Number: [id number] Policy Number: CH[employer]ISSY Group Number: [employer] Health Plan Information #: 2 Payer: [employer] Member Number: [id number] Policy Number: CHRISSY Group Number: [id number]
== END 2024-08-07 11:18 | disposition home or self-care (01) ==
PROVIDERS: PCP Internal Medicine; Visit Provider Nurse Practitioner Family
DX: N95.2 Postmenopausal atrophic vaginitis (principal); R39.9 Unspecified symptoms and signs involving the genitourinary system; N36.2 Urethral caruncle; R31.29 Other microscopic hematuria; Z13.9 Encounter for screening, unspecified
CPT/HCPCS: 99213; G2211

== ENCOUNTER → 2024-08-07 10:32 | Outpatient (BNVA) | payer MEDICARE, SELFPAY | PROVIDERS: PCP Internal Medicine; Visit Provider Nurse Practitioner Family | DX: R39.9 Unspecified symptoms and signs involving the genitourinary system (principal); N95.2 Postmenopausal atrophic vaginitis; N36.2 Urethral caruncle; R31.29 Other microscopic hematuria | CPT/HCPCS: 51798; 81003; 99212 ==

== ENCOUNTER 2024-08-08 10:42 | Outpatient (AMB) | payer MEDICARE, SELFPAY ==
--- NOTE | 2024-08-08 10:59 | A.OFFVIS_ITS ---
Vital Signs 08/08/24 11:04 Height 5 ft 3 in Weight 156 lb 11.979 oz BMI 27.8 BP 132/60 Blood Pressure Location Lt brachial Position Sitting Pulse 55 Pulse Source Pulse Oximeter Pulse Oximetry (%) 94 Oxygen Delivery Method Room Air Intake Visit Reasons: elbow pain /inj/cm Intake Note: Patient present for elbow pain/injection. Allergies hydroxychloroquine Allergy (Severe, Verified 08/08/24 11:03) Diarrhea acetaminophen [From Tylenol-Codeine #3] Adverse Reaction (Severe, Verified 08/08/24 11:03) syncope codeine [From Tylenol-Codeine #3] Adverse Reaction (Severe, Verified 08/08/24 11:03) syncope oxycodone [From Percocet] Adverse Reaction (Severe, Verified 08/08/24 11:03) syncopee Medication List - Last Reconciled 08/08/24 by Arnol Torres MD ascorbate calcium (vitamin C) 500 mg PO DAILY aspirin 81 mg PO DAILY carvedilol 12.5 mg PO BID cholecalciferol (vitamin D3) 50 mcg PO DAILY estradiol 0.01%(0.1mg/gram) apply pea sized amount to urethra daily for one month and then 3 times a week thereafter. 90 days isosorbide mononitrate ER 30 mg PO DAILY loratadine 10 mg PO DAILY losartan 50 mg PO DAILY rosuvastatin (Crestor) 5 mg PO DAILY rosuvastatin 5 mg PO DAILY HPI Comments Details: Patient presents for follow-up. She is complaining of right elbow pain. This has been ongoing since March. She has taken ibuprofen. It does not help much. Prednisone also does not help much. She Would like an injection. Initial history: This is an 84-year-old female presents for evaluation of elevated CPK. Patient states that has been on pravastatin for approximately 6 years. Over the last 2 years she has been having bilateral hip and thigh soreness [facility] Her CPK was checked and it was approximately 700. Her pravastatin was held and her CPK trended down but did not normalize. She was referred by her grocery store courtesy clerk. She states that gets bilateral hip and thigh pain especially with walking. Sitting down helps her pain. Leaning forward helps her pain. She states that she has generalized joint pain and stiffness in the morning, she has bilateral ankle pain. She takes ibuprofen 400 mg daily in the morning to help get her going. She states that she had lower back surgery years ago. Since she discontinued her statin approximately 7 months ago she did not note any significant improvement. Denies any weakness or pain of her shoulders. Denies any skin rashes, denies weight loss. She has a sister with leukemia, father had MS. PFSH Medical History Hyperlipidemia Hypertension Elevated CPK Surgical History History of cardiac catheterization H/O angioplasty Hx of hysterectomy H/O basal cell carcinoma excision H/O lumbar discectomy History of total left knee replacement Family History Mother Lung cancer Arthritis Father Multiple sclerosis Sister Arthritis Leukemia Social History Alcohol intake: former Patient Tobacco Use Status: Never used Tobacco Current occupational status: [place] [facility] [place]ralgias and Reports limited range of motion Physical Exam Vital Signs: Last Vital Signs Pulse 55 08/08/24 11:04 BP 132/60 08/08/24 11:04 Pulse Ox 94 08/08/24 11:04 Oxygen Delivery Method Room Air 08/08/24 11:04 BMI result Body Mass Index 27.8 Const General: cooperative, healthy appearing and comfortable Nutritional Appearance: overweight Orientation/consciousness: patient oriented x3 Limitations: no limitations HEENT Head: Yes normocephalic and Yes atraumatic Resp Effort & Inspection: normal respiratory effort and able to speak in complete sentences Skin Other: No rashes today Neuro General: patient oriented x3 Extrem Other: Osteoarthritic changes of both hands with no swelling Tenderness at the right common flexor origin with positive resisted wrist flexion test Office Procedures AMB Tendon Injection Tendon Injection Details: With patient's consent, the tender area over the medial epicondyle was prepped with ChloraPrep, ethyl chloride sprayed was used then using a 25 gauge needle 40 mg of Kenalog mixed with 0.2 mL of 1% lidocaine were injected along the flexor tendon sheath. The patient tolerated the procedure well with no apparent acute adverse events 49521-[id number] Tendon Sheath Injection All charges added?: Procedure code (CPT) selection complete Office Meds Kenalog 40 mg/mL suspension for injection Performing Provider: Arnol Torres MD [place] [facility] [place] [facility] Administered by: Arnol Torres MD on 08/08/24 11:32 Dose Route Admin Location Dispensed Lot Number Expiration Date [facility] Cheese Weigher 40 mg Tendon Sheath Inj. 1 mL [id number] 03/04/26 [address]-2 [employer] Assessment & Plan Assessment & Plan (1) Golfers elbow of right upper extremity: Code(s): M77.01 - Medial epicondylitis, right elbow Category: Medical Plan: Discussed golfer's elbow which is an overuse tendonitis. Has been symptomatic for the last 5 months. Prednisone an ibuprofen did not help much. Patient requesting an injection. We discussed the risks and benefits of steroid injections discussed the particular risks of golfer's elbow injection and possibility of ulnar nerve injury and skin depigmentation. Patient agreed to proceed. With patient's consent injection was done Follow-up as scheduled in December 2024 Plan I spent 15 minutes reviewing patient's chart, evaluating patient, counseling patient and documenting in the chart Orders: Orders AMB Tendon Injection Today M77.01 - Medial epicondylitis, right elbow Medications: New Kenalog (triamcinolone acetonide) 40 mg Tendon Sheath Inj. ONCE 1 mL 0RF NS M77.01 - Medial epicondylitis, right elbow Coding Level of Care Code Est Pt Level 3 (49724) Diagnoses Golfers elbow of right upper extremity M77.01 CPT Codes Tendon Injection - Tendon Injection 1: 78077-Fnwmbj Tendon Sheath Injection ([id number])
[2024-08-08 11:04] VITALS: BP 132/60; PULSE 55; O2SAT 94; BMI 27.8
== END 2024-08-08 11:34 | disposition home or self-care (01) ==
PROVIDERS: PCP Internal Medicine; Visit Provider Student in an Organized Health Care Education/Training Program
DX: M77.01 Medial epicondylitis, right elbow (principal)
CPT/HCPCS: 20550; 99213

== ENCOUNTER → 2024-08-08 10:42 | Outpatient (BNVA) | payer MEDICARE, SELFPAY | PROVIDERS: PCP Internal Medicine; Visit Provider Student in an Organized Health Care Education/Training Program | DX: M77.01 Medial epicondylitis, right elbow (principal); M25.552 Pain in left hip; M25.551 Pain in right hip | CPT/HCPCS: 20550; 99212; J3300 ==

== ENCOUNTER 2024-08-21 07:19 | Outpatient (REF) | payer MEDICARE, SELFPAY ==
[2024-08-21 08:23] LABS: Alanine Aminotransferase 41 U/L (0-31); Aspartate Amino Transferase 34 U/L (5-31); Cholesterol 161 mg/dL (<200); HDL Cholesterol 54 mg/dL (>40); LDL Cholesterol Calculated 90 mg/dL (<100); Triglycerides 89 mg/dL (<150)
== END 2024-08-21 07:20 | disposition home or self-care (01) ==
LOC: HO.LAB 07:19
PROVIDERS: PCP Internal Medicine; Visit Provider Internal Medicine
DX: N18.9 Chronic kidney disease, unspecified (principal); E78.00 Pure hypercholesterolemia, unspecified; I10 Essential (primary) hypertension
CPT/HCPCS: 36415; 80061; 82550; 84450; 84460

== ENCOUNTER 2024-12-27 11:08 | Outpatient (AMB) | payer MEDICARE, SELFPAY ==
--- NOTE | 2024-12-27 11:11 | A.OFFVIS_ITS ---
Vital Signs 12/27/24 11:19 Height 5 ft 3 in Weight 150 lb 2.157 oz BMI 26.6 BP 130/70 Blood Pressure Location Rt brachial Position Sitting Pulse 61 Pulse Source Pulse Oximeter Pulse Oximetry (%) 97 Oxygen Delivery Method Room Air Intake Visit Reasons: CPK elevated Intake Note: Patient presents for CPK elevated follow up. Allergies hydroxychloroquine Allergy (Severe, Verified 12/27/24 11:16) Diarrhea acetaminophen [From Tylenol-Codeine #3] Adverse Reaction (Severe, Verified 12/27/24 11:16) syncope codeine [From Tylenol-Codeine #3] Adverse Reaction (Severe, Verified 12/27/24 11:16) syncope oxycodone [From Percocet] Adverse Reaction (Severe, Verified 12/27/24 11:16) syncopee Medication List - Last Reconciled 12/27/24 by Taylor Douglas MD ascorbate calcium (vitamin C) 500 mg PO DAILY aspirin 81 mg PO DAILY carvedilol 12.5 mg PO BID cholecalciferol (vitamin D3) 50 mcg PO DAILY estradiol 0.01%(0.1mg/gram) apply pea sized amount to urethra daily for one yumi h and then 3 times a week thereafter. 90 days isosorbide mononitrate ER 30 mg PO DAILY loratadine 10 mg PO DAILY losartan 50 mg PO DAILY rosuvastatin (Crestor) 5 mg PO DAILY HPI Comments Details: Patient is an 84-year-old female with hypertension, hyperlipidemia, celiac disease, elevated CK without evidence of myositis and polyarticular osteoarthritis here today for follow up Interval History: Patient last seen 08/08/2024. At that time patient was stable with normal CK. Received an injection for right medial epicondylitis Back surgery 09/2024 for lumbar stenosis and radiculopathy Denies rashes, photosensitivity, alopecia, oral/nasal ulcers, sicca symptoms, lymphadenopathy, chest pain/shortness of breath, inflammatory type joint pain, foamy urine, lower extremity edema, muscle weakness, Raynaud's Also denies history of seizure, CVA, psychosis, history of kidney problems, history of cytopenias, history of VTE including PE or DVTs Rheumatologic History: Initially presented with elevated CK. She did not have any muscle weakness on examination and extensive panel showed elevated dsDNA. She was started on Plaquenil to see if that would help however she could not tolerate the Plaquenil with significant GI upset. Because there was no obvious autoimmune/rheumatologic disease no further DMARDs were used Initial history with Dr. Torres: This is an 84-year-old female presents for evaluation of elevated CPK. Patient states that has been on pravastatin for approximately 6 years. Over the last 2 years she has been having bilateral hip and thigh soreness especially when exercising at the senior center. Her CPK was checked and it was approximately 700. Her pravastatin was held and her CPK trended down but did not normalize. She was referred by her advertising photographer. She states that gets bilateral hip and thigh pain especially with walking. Sitting down helps her pain. Leaning forward helps her pain. She states that she has generalized joint pain and stiffness in the morning, she has bilateral ankle pain. She takes ibuprofen 400 mg daily in the morning to help get her going. She states that she had lower back surgery years ago. Since she discon tinued her statin approximately 7 months ago she did not note any significant improvement. Denies any weakness or pain of her shoulders. Denies any skin rashes, denies weight loss. She has a sister with leukemia, father had MS. Current Rheumatology Medication(s): REPLACED BY [facility] Medical History (Updated 12/27/24 @ 11:25 by Taylor Douglas MD) Hyperlipidemia Hypertension Elevated CPK Surgical History Previous back surgery History of cardiac catheterization H/O angioplasty Hx of hysterectomy H/O basal cell carcinoma excision H/O lumbar discectomy History of total left knee replacement Family History Mother Lung cancer Arthritis Father Multiple sclerosis Sister Arthritis Leukemia Social History Alcohol intake: former Patient Tobacco Use Status: Never used Tobacco Current occupational status: retired Review of Systems Const Details: Review of Systems Constitutional: Denies fever, chills, weight loss ENT: Denies vision changes, eye pain or eye redness, dental caries, dry mouth GI: Denies nausea, vomiting, diarrhea, abdominal pain, change in BM Pulm: Denies SOB, SPENCER, hemoptysis, wheezing Cards: Denies chest pain, palpitations Skin: Denies Raynaud's, rash, nail changes, photosensitivity, AUCTIONEER ART: Denies headaches, weakness, paresthesias, recurrent falls MSK: as per HPI All other systems reviewed and are unremarkable except noted above Physical Exam Vital Signs: Last Vital Signs Pulse 61 12/27/24 11:19 BP 130/70 12/27/24 11:19 Pulse Ox 97 12/27/24 11:19 Oxygen Delivery Method Room Air 12/27/24 11:19 BMI result Body Mass Index 26.6 Vital signs reviewed Physical Examination CONSTITUITIONAL Patient alert and cooperative. Well appearing and in no apparent painful distress HEENT Conjunctiva and sclera clear. ?Pupils equal round and reactive to light. ?No lymphadenopathy. ? CHEST/RESPIRATORY SYSTEM Normal respiratory effort and able to speak in complete sentences. ?Clear to auscultation bilaterally. ?No crackles, rales, rhonchi, wheezes heard. CARDIAC SYSTEM Regular rate and rhythm. ?S1 and S2 heard no murmurs. ?Radial pulses intact bilaterally MSK Hands: ?Able to make a fist. No synovitis noted to the MCPs, PIPs or DIPs. ?No tenderness to palpation of these joints. No deformities noted. ? Wrists: ?Full range of motion at the wrists without pain. ?No tenderness to palpation or synovitis noted to the wrists. Elbows: Full range of motion without pain. No tenderness, weakness, swelling, increased warmth or erythema. Shoulders: Full range of active range of motion without pain. No tenderness, w eakness, swelling, increased warmth or erythema. Hips: Full range of motion without pain. Hip bursa: No tenderness to palpation Knees: ?Full range of motion. ?No tenderness, swelling, increased warmth or erythema.?No effusion or crepitations Ankles: Full range of motion. ?No tenderness, swelling, increased warmth or erythema.? Feet: ?Negative squeeze test. ?No tenderness to palpation or swelling of the MTPs. Tender points:?No tenderness to palpation of the bilateral trapezius, supraspinatus, greater trochanters, anterior costochondral junctions, bilateral gluteal areas, bilateral suboccipital muscle insertions Right Left Certified Hyperbaric Technologist strength 5 5 Wrist flexion 5 5 Wrist extension 5 5 Elbow flexion 5 5 Elbow extension 5 5 Shoulder abduction 5 5 Shoulder adduction 5 5 Hip flexion 5 5 Knee extension 5 5 Knee flexion 5 5 Ankle dorsiflexion 5 5 Ankle plantarflexion 5 5 SKIN Skin intact without rashes. Results Reviewed Results Reviewed: Laboratory Tests 06/05/24 08/21/24 09:33 07:29 WBC 10.3 RBC 4.01 L Hgb 12.7 Hct 38.2 Plt Count 226 ESR 5 Sodium 143 Potassium 4.3 Chloride 107 Carbon Dioxide 28 BUN 23 H Creatinine 1.11 Calcium 9.0 Total Bilirubin 0.5 AST 21 34 H ALT 23 41 H Total Creatine Kinase 136 170 H C-Reactive Protein 0.86 H Immunology labs 02/05/24 13:55 IgG Total 1096 IgA Total 200 IgM 49 L Rheumatoid Factor < 13.0 Cycl Citrul Peptide IgG <16 KIRSTIN Screen NEGATIVE GIOVANNI-1 Antibody <11 EJ Antibody <11 OJ Antibody <11 Mi-2-Alpha Ab <11 Mi-2-Beta Ab <11 NXP-2 Ab <11 PL-7 Antibody <11 PL-12 Antibody <11 SRP Ab <11 Myos P155/140 TIF1-g Ab <11 SS-A/Ro Antibody <1.0 NEG SS-B/La Antibody <1.0 NEG Sm (Swartz) Antibody <1.0 NEG SM/[employer]IVER IgG Antibody <1.0 NEG Double Strand DNA Ab 18 H Complement C3 64 Complement C4 10 Assessment & Plan Assessment & Plan (1) Elevated CPK: Code(s): R74.8 - Abnormal levels of other serum enzymes Category: Medical Plan: #Elevated CK Patient is an 84 y.o. female with elevated CK here today for follow up At this time I do not believe that her elevated CK is related to any underlying autoimmune or inflammatory process. I discussed with the patient that the isolated elevated dsDNA can be normal es pecially in elderly female patients Also given her history of celiac disease, there is evidence that there is a 23% prevalence of dsDNA in patient's with celiac disease. There is no indication for immunosuppression at this time Recommended that patient discuss with cardiology about stopping crestor Plan - Labs today: CBC, CMP, ESR, CRP, CK, C3, C4, dsDNA - RTC 1 year or sooner Plan I spent 20 minutes reviewing the record and labs, taking a history, examining the patient, discussing the treatment plan, ordering diagnostic work up and documenting in the medical record Orders: Orders Complement C3 Today R74.8 - Abnormal levels of other serum enzymes Complement C4 Today R74.8 - Abnormal levels of other serum enzymes Complete Blood Count Auto Diff Today R74.8 - Abnormal levels of other serum enzymes Comprehensive Met. Panel Today R74.8 - Abnormal levels of other serum enzymes C Reactive Protein Today R74.8 - Abnormal levels of other serum enzymes Erythrocyte Sedimentation Rate Today R74.8 - Abnormal levels of other serum enzymes CK, Total+Isoenzymes, Serum Today R74.8 - Abnormal levels of other serum enzymes Anti DNA DS Antibody Today R74.8 - Abnormal levels of other serum enzymes Coding Level of Care Code Est Pt Level 3 (44707) Complex EM visit Add On G2211 Diagnoses Elevated CPK R74.8
[2024-12-27 11:19] VITALS: BP 130/70; PULSE 61; O2SAT 97; BMI 26.6
== END 2024-12-27 11:46 | disposition home or self-care (01) ==
LOC: HO.RHE 11:09
PROVIDERS: PCP Internal Medicine; Visit Provider Student in an Organized Health Care Education/Training Program
DX: R74.8 Abnormal levels of other serum enzymes (principal)
CPT/HCPCS: 99213; G2211

== ENCOUNTER 2024-12-27 11:08 | Outpatient (REF) | payer MEDICARE, SELFPAY ==
[2024-12-27 12:09] LABS: MANUAL DIFF FLAG NO
[2024-12-27 12:21] LABS: Basophils Percent Auto 0.4 % (0-2); Eosinophils Absolute Auto 0.2 X10*3/uL (0.0-0.4); Eosinophils Percent Auto 2.9 % (0-4); Hematocrit 37.6 % (37.0-47.0); Hemoglobin 12.2 g/dl (12.0-16.0); Imm Gran Abs Auto 0.01 X10*3/uL (0.00-0.03); Imm Gran Pct Auto 0.1 % (0.0-0.4); Lymphocytes Absolute Auto 2.2 X10*3/uL (1.2-4.9); Lymphocytes Percent Auto 31.5 % (20-40); Mean Corpuscular HGB Conc 32.4 g/dl (31.0-35.0); Mean Corpuscular Hemoglobin 30.7 pg (27.0-33.0); Mean Corpuscular Volume 94.7 fL (80.0-98.0); Mean Platelet Volume 10.7 fL (9.4-12.3); Monocytes Absolute Auto 0.7 X10*3/uL (0.1-1.2); Monocytes Percent Auto 9.4 % (2-11); Neutrophils Absolute Auto 3.8 x10*3/uL (2.0-8.3); Neutrophils Percent Auto 55.7 % (45-73); Platelet Count 243 X10*3/uL (160-400); Red Blood Count 3.97 X10*6/uL (4.20-5.50); Red Cell Distribution Width 13.4 % (11.0-16.0); White Blood Count 6.9 X10*3/uL (4.8-10.8)
[2024-12-27 12:43] LABS: Alanine Aminotransferase 25 U/L (0-31); Albumin Level 3.8 g/dL (3.5-5.0); Alkaline Phosphatase 48 U/L (39-117); Anion Gap 9 (12-20); Aspartate Amino Transferase 32 U/L (5-31); Bilirubin Total 0.3 mg/dL (0.0-1.0); Blood Urea Nitrogen 14 mg/dL (9-16); C Reactive Protein 0.11 mg/dL (< or = 0.50); Calcium 8.8 mg/dL (8.4-10.2); Carbon Dioxide 28 mmol/L (22-29); Chloride 109 mmol/L (96-108); Estimated Glomerular Filt Rate > 60; Glucose Random 99 mg/dL (60-115); Potassium 4.7 mmol/L (3.3-5.1); Sodium 141 mmol/L (135-145); Total Protein 6.5 g/dL (6.5-8.0)
[2024-12-27 13:07] LABS: Erythrocyte Sedimentation Rate 7 MM/HR (0-20)
[2024-12-30 21:38] LABS: Anti DNA DS Antibody 15 IU/mL
[2024-12-31 05:08] LABS: Complement C3 109 mg/dL
[2025-01-01 23:28] LABS: CK-BB 2 % (None Detected); CK-MB 1 % (<5); CK-MM 93 % (95-100); Creatine Kinase Isoenzyme Itrp MACRO CK TYPE 1; Creatine Kinase,Total,Serum 273 U/L (16-215)
== END 2024-12-27 11:09 | disposition home or self-care (01) ==
LOC: HO.LAB 11:08
PROVIDERS: PCP Internal Medicine; Visit Provider Student in an Organized Health Care Education/Training Program
DX: R74.8 Abnormal levels of other serum enzymes (principal); K90.0 Celiac disease
CPT/HCPCS: 36415; 80053; 82552; 85025; 85652; 86140; 86160; 86225; 99212

== ENCOUNTER 2025-01-30 09:18 | Outpatient (REF) | payer MEDICARE, SELFPAY ==
--- NOTE | ~2025-01-30 | XR_ITS ---
CLINICAL HISTORY: M25.552 - Pain in left hip 2 view, pelvis and left hip Comparison: None Findings: The bones are intact. No significant arthritic change. The soft tissues are unremarkable. There is regional arterial calcification. IMPRESSION: No acute findings. This document has been electronically signed by: Fred Richards MD on 01/31/2025 09:38:24
[2025-01-30 10:22] LABS: MANUAL DIFF FLAG NO
[2025-01-30 11:00] LABS: Basophils Absolute Auto 0.1 X10*3/uL (0.0-0.2); Basophils Percent Auto 0.8 % (0-2); Eosinophils Absolute Auto 0.2 X10*3/uL (0.0-0.4); Eosinophils Percent Auto 3.4 % (0-4); Hematocrit 38.9 % (37.0-47.0); Hemoglobin 12.8 g/dl (12.0-16.0); Imm Gran Abs Auto 0.02 X10*3/uL (0.00-0.03); Imm Gran Pct Auto 0.3 % (0.0-0.4); Lymphocytes Absolute Auto 2.4 X10*3/uL (1.2-4.9); Lymphocytes Percent Auto 33.9 % (20-40); Mean Corpuscular HGB Conc 32.9 g/dl (31.0-35.0); Mean Corpuscular Hemoglobin 30.5 pg (27.0-33.0); Mean Corpuscular Volume 92.6 fL (80.0-98.0); Mean Platelet Volume 10.8 fL (9.4-12.3); Monocytes Absolute Auto 0.8 X10*3/uL (0.1-1.2); Monocytes Percent Auto 10.7 % (2-11); Neutrophils Absolute Auto 3.6 x10*3/uL (2.0-8.3); Neutrophils Percent Auto 50.9 % (45-73); Platelet Count 242 X10*3/uL (160-400); Red Cell Distribution Width 14.1 % (11.0-16.0); White Blood Count 7.1 X10*3/uL (4.8-10.8)
[2025-01-30 11:41] LABS: Erythrocyte Sedimentation Rate 5 MM/HR (0-20)
[2025-01-30 11:46] LABS: Alanine Aminotransferase 26 U/L (0-31); Alkaline Phosphatase 40 U/L (39-117); Anion Gap 10 (12-20); Aspartate Amino Transferase 32 U/L (5-31); Bilirubin Total 0.3 mg/dL (0.0-1.0); Blood Urea Nitrogen 11 mg/dL (9-16); Calcium 9.2 mg/dL (8.4-10.2); Carbon Dioxide 28 mmol/L (22-29); Chloride 111 mmol/L (96-108); Cholesterol 173 mg/dL (<200); Estimated Glomerular Filt Rate > 60; Glucose Random 78 mg/dL (60-115); HDL Cholesterol 52 mg/dL (>40); LDL Cholesterol Calculated 85 mg/dL (<100); Potassium 4.5 mmol/L (3.3-5.1); Sodium 144 mmol/L (135-145); TSH reflex Free T4 2.09 uIU/mL (0.32-4.0); Total Protein 6.6 g/dL (6.5-8.0); Triglycerides 181 mg/dL (<150)
[2025-02-03 15:24] LABS: Vitamin D 25-OH, D2 <4 ng/mL; Vitamin D 25-OH, D3 29 ng/mL; Vitamin D 25-OH, Total 29 ng/mL (30-100)
== END 2025-01-30 09:19 | disposition home or self-care (01) ==
LOC: HO.LAB 09:18
PROVIDERS: PCP Internal Medicine; Visit Provider Internal Medicine
DX: R10.32 Left lower quadrant pain (principal); I10 Essential (primary) hypertension; E78.5 Hyperlipidemia, unspecified; M25.552 Pain in left hip; R74.8 Abnormal levels of other serum enzymes; K90.0 Celiac disease
CPT/HCPCS: 36415; 73502; 80053; 80061; 82306; 82550; 84443; 85025; 85652; 96127; 99202

== ENCOUNTER 2025-01-30 09:18 | Outpatient (AMB) | payer MEDICARE, SELFPAY ==
[2025-01-30 09:28] VITALS: BP 126/72; PULSE 54; TEMP 36.5; O2SAT 98; BMI 26.7
--- NOTE | 2025-01-30 09:28 | MHC.PC.OV ---
Vital Signs 01/30/25 09:28 Height 5 ft 3 in Weight 151 lb BMI 26.7 BP 126/72 Blood Pressure Location Lt brachial Position Sitting Pulse 54 Pulse Source Pulse Oximeter Temp 97.7 F Temp Source Axillary Pulse Oximetry (%) 98 Oxygen Delivery Method Room Air Intake Visit Reasons: Routine Sterile Processing Tech Required: No Accompanied by: Self / Same As Patient Allergies hydroxychloroquine Allergy (Severe, Verified 01/30/25 09:29) Diarrhea acetaminophen [From Tylenol-Codeine #3] Adverse Reaction (Severe, Verified 01/30/25 09:29) syncope codeine [From Tylenol-Codeine #3] Adverse Reaction (Severe, Verified 01/30/25 09:29) syncope oxycodone [From Percocet] Adverse Reaction (Severe, Verified 01/30/25 09:29) syncopee Tobacco use date assessed: 01/30/25 Fall risk assessment: No Falls in past year Last assessed Fall Risk: 01/30/25 Dental Screening Dental Screen Date: 01/30/25 Did you have a dental visit in the last 12 months?: Yes Did you have a dental problem in the last 6 months where you did not have access to dental care?: No HPI HPI Comments History of Present Illness Details Patient is an 84-year-old female with CAD, hypertension, hyperlipidemia, celiac disease, GERD, CKD presenting for follow up. Last seen by pcp in Aug CV: On imdur, losartan, coreg, zetia, aspirin. Follows at [facility] cardiology. Recently seen. MSK: elevated CK without evidence of myositis and polyarticular osteoarthritis, off statin since December OA: Multiple joint back, knee pain, right elbow. Worsening is left hip pain Back surgery 09/2024 for lumbar stenosis and radiculopathy Worsening abdominal discomfort for the past 2-3 months. History of celiac disease which has been diet controlled. Change in stools. No blood ROS CONSTITUTIONAL: Denies weight loss, fever and chills. HEENT: Denies changes in vision and hearing. RESPIRATORY: Denies SOB and cough. CV: Denies palpitations and CP GI: Denies abdominal pain, nausea, vomiting and diarrhea. : Denies dysuria and urinary frequency. MSK: see HPI SKIN: Denies rash and pruritus. NEUROLOGICAL: Denies headache PSYCHIATRIC: Denies recent changes in mood. PHYSICAL EXAM: GENERAL: Alert and oriented x 3. NAD EYES: EOMI. Anicteric. HENT: Moist mucous membranes. No scleral icterus. No cervical lymphadenopathy. LUNGS: Clear to auscultation bilaterally. CARDIOVASCULAR: Regular rate and rhythm. No murmur. No JVD. ABDOMEN: Soft, non-tender +bs EXTREMITIES: No edema. Non-tender. SKIN: No rashes or lesions. Warm. NEUROLOGIC: No focal neurological deficits. CN II-XII grossly intact PSYCHIATRIC: Cooperative. Appropriate mood and affect COUNT INCLUDES THE [facility] Medical History Hyperlipidemia Hypertension Elevated CPK Surgical History Previous back surgery History of cardiac catheterization H/O angioplasty Hx of hysterectomy H/O basal cell carcinoma excision H/O lumbar discectomy History of total left knee replacement Family History Mother Lung cancer Arthritis Father Multiple sclerosis Sister Arthritis Leukemia Social History Housing: House Alcohol intake: former Patient Tobacco Use Status: Never used Tobacco e-Cigarette/Vaping Use: Never Used Current occupational status: retired Cognitive needs: No Hearing needs: No Vision needs: Yes (rx glasses) Questionnaire PHQ-9 Over the last 2 weeks, how often have you been bothered by any of the following problems? 1. Little interest or pleasure in doing things: not at all 2. Feeling down, depressed, or hopeless: not at all 3. Trouble falling or staying asleep, or sleeping too much: not at all 4. Feeling tired or having little energy: not at all 5. Poor appetite or overeating: not at all 6. Feeling bad about yourself - or that you are a failure or have let yourself or your family down: not at all 7. Trouble concentrating on things, such as reading the newspaper or watching television: not at all 8. Moving or speaking so slowly that other people could have noticed. Or the opposite - being so fidgety or restless that you have been moving around a lot more than usual: not at all 9. Thoughts that you would be better off or of hurting yourself in some way: not at all Total score: 0 Depression Screening Interpretation: Negative Depression Screening Done: Yes 00851 - PHQ-9 Billing: Yes Source: Developed by Drs. Reed Travis, Hemant Darden and colleagues, with an educational mikaela from [employer]. Thrive Questionnaire Date Thrive assessed: 01/30/25 I am a: Patient Within the past 12 months, did the food you bought not last and you didn't have the money to get more?: Never true Within the past 12 months, did you worry whether your food would run out before you got money to buy more?: Never true Do you have trouble paying for medicines?: No Do you have trouble getting transportation to medical appointments?: No Do you have trouble paying your heating and electricity bill?: No Do you have trouble taking care of your child, family member or friend?: No Do you have trouble with day-to-day activities such as bathing, preparing meals, shopping, managing finances, etc.?: No Are you currently unemployed and looking for a job?: No Are you interested in more education?: No THRIVE Score: 0 AUDIT C Alcohol Use Questionnaire (AUDIT-C) 1. How often do you have a drink containing alcohol?: Never 3. How often do you have six or more drinks on one occasion?: Never Total Score: 0 CHRISTIANO-7 AMB Questionnaire CHRISTIANO-7 Date CHRISTIANO - 7 assessed: 01/30/25 Feeling nervous, anxious, or on edge: 0 = Not at all Not being able to stop or control worryin = Not at all Worrying too much about different things: 0 = Not at all Trouble relaxin = Not at all Being so restless that it is hard to sit still: 0 = Not at all Becoming easily annoyed or irritable: 0 = Not at all Feeling afraid as if something awful might happen: 0 = Not at all Total CHRISTIANO-7 score (0-4 normal; 5-9 mild; 10-14 moderate; 15-21 severe): 0 Source: Developed by Drs. Reed Travis, Sofi Sparks, Hemant Garcia and colleagues, with an educational mikaela from [employer]. Physical exam (Primary Care) Vital Signs: Last Vital Signs Temp 97.7 F 01/30/25 09:28 Pulse 54 01/30/25 09:28 BP 126/72 01/30/25 09:28 Pulse Ox 98 01/30/25 09:28 Oxygen Delivery Method Room Air 01/30/25 09:28 BMI result Body Mass Index 26.7 Tobacco/Smoking Status: Tobacco use Status Tobacco use date assessed 01/30/25 01/30/25 09:39 Patient Tobacco Use Status Never used Tobacco 01/30/25 09:39 e-Cigarette/Vaping Use Never Used 01/30/25 09:39 PHQ-9: PHQ-9 Score PHQ-9: Total score 0 01/30/25 11:57 Depression Screening Interpretation: Negative Thrive Assessment: Date of Thrive Assessment Date Thrive assessed 01/30/25 01/30/25 09:39 Coding Level of Care Code New Pt Level 4 (64965) Complex EM visit Add On G2211 Diagnoses Left lower quadrant abdominal pain R10.32 Abdominal location: left lower quadrant Primary hypertension I10 Hypertension type: primary hypertension Hyperlipidemia, unspecified hyperlipidemia type E78.5 Hyperlipidemia type: unspecified Left hip pain M25.552 Additional Codes PHQ-9 - 25975 - PHQ-9 Billing: Yes ([id number]) Assessment & Plan Assessment & Plan (1) Abdominal pain: Code(s): R10.9 - Unspecified abdominal pain Category: Medical Qualifiers: Abdominal location: left lower quadrant Qualified Code(s): R10.32 - Left lower quadrant pain (2) Hypertension: Code(s): I10 - Essential (primary) hypertension Category: Medical Qualifiers: Hypertension type: primary hypertension Qualified Code(s): I10 - Essential (primary) hypertension (3) Hyperlipidemia: Code(s): E78.5 - Hyperlipidemia, unspecified Category: Medical Qualifiers: Hyperlipidemia type: unspecified Qualified Code(s): E78.5 - Hyperlipidemia, unspecified (4) Left hip pain: Code(s): M25.552 - Pain in left hip Category: Medical Plan 85 to establish care past medical, surgical, social reviewed Left hip pain-xr ordered LLQ pain/generalized abd pain-GI referral. check labs Orders: Orders XR hip LT min 2V 01/30/25 M25.552 - Pain in left hip Lipid Panel 01/30/25 E78.5 - Hyperlipidemia, unspecified, I10 - Essential (primary) hypertension, R74.8 - Abnormal levels of other serum enzymes Comprehensive Met. Panel 01/30/25 E78. - Hyperlipidemia, unspecified, I10 - Essential (primary) hypertension, R74.8 - Abnormal levels of other serum enzymes Vitamin D 25-OH (D2 and D3) 01/30/25 E78.5 - Hyperlipidemia, unspecified, I10 - Essential (primary) hypertension, R74.8 - Abnormal levels of other serum enzymes Creatine Kinase Total 01/30/25 E78. - Hyperlipidemia, unspecified, I10 - Essential (primary) hypertension, R74.8 - Abnormal levels of other serum enzymes TSH reflex Free T4 01/30/25 K90.0 - Celiac disease Erythrocyte Sedimentation Rate 01/30/25 E78.5 - Hyperlipidemia, unspecified, K90.0 - Celiac disease, R10.9 - Unspecified abdominal pain Complete Blood Count Auto Diff 01/30/25 E78. - Hyperlipidemia, unspecified, K90.0 - Celiac disease, R10.9 - Unspecified abdominal pain Referrals Gastroenterology Referral K90.0 - Celiac disease
== END 2025-01-30 10:03 | disposition home or self-care (01) ==
LOC: HO.HMCHD 09:19
PROVIDERS: PCP Internal Medicine; Visit Provider Internal Medicine
DX: R10.32 Left lower quadrant pain (principal); I10 Essential (primary) hypertension; E78.5 Hyperlipidemia, unspecified; M25.552 Pain in left hip

== ENCOUNTER → 2025-01-30 10:23 | Outpatient (BNV) | payer MEDICARE, SELFPAY | PROVIDERS: PCP Internal Medicine; Visit Provider Specialist | DX: M25.552 Pain in left hip (principal) | CPT/HCPCS: 73502 ==

== ENCOUNTER 2025-04-25 07:54 | Outpatient (AMB) | payer MEDICARE, SELFPAY ==
--- NOTE | 2025-04-25 07:55 | MHC.PC.OV ---
Vital Signs 04/25/25 07:58 Height 5 ft 3 in Weight 69.853 kg BMI 27.3 BP 156/40 H Blood Pressure Location Lt brachial Position Sitting Respiration 16 Pulse 57 Pulse Source Pulse Oximeter Temp 98.3 F Temp Source Temporal Artery Scan Pulse Oximetry (%) 97 Oxygen Delivery Method Room Air Intake Visit Reasons: 3 Month F/U Environmental Services Lead Required: No Accompanied by: Self / Same As Patient Allergies hydroxychloroquine Allergy (Severe, Verified 04/25/25 07:55) Diarrhea acetaminophen (From Tylenol-Codeine #3) Adverse Reaction (Severe, Verified 04/25/25 07:55) syncope codeine (From Tylenol-Codeine #3) Adverse Reaction (Severe, Verified 04/25/25 07:55) syncope oxycodone (From Percocet) Adverse Reaction (Severe, Verified 04/25/25 07:55) syncopee Medication List - Last Reconciled 04/25/25 by JOCELYN Paul ascorbate calcium (vitamin C) 500 mg PO DAILY aspirin 81 mg PO DAILY carvedilol 12.5 mg PO BID cholecalciferol (vitamin D3) 125 mcg PO DAILY estradiol 0.01%(0.1mg/gram) apply pea sized amount to urethra daily for one month and then 3 times a week thereafter. 90 days isosorbide mononitrate ER 30 mg PO DAILY loratadine 10 mg PO DAILY losartan 50 mg PO DAILY prednisone 10 mg PO DIRECTED Tobacco use date assessed: 01/30/25 Dental Screening Dental Screen Date: 01/30/25 HPI HPI Comments History of Present Illness Details 85-year-old female with history of CAD, hypertension, hyperlipidemia, celiac disease, GERD, CKD presents to the office for follow-up. CAD/HLD-follows with Junaid in [facility] regularly. On Imdur, losartan, Coreg, aspirin. No longer on Zetia. No recent anginal chest pains. Off statin and Zetia due to myalgia and elevated CK Hypertension-compliant with carvedilol Imdur, losartan. Blood pressure in the office today 136/58. OA: Multiple joint back, knee pain, right elbow. Worsening is left hip pain. Occ swollen. Taking advil. Radiates into L thigh. Occ paresthesias, no weakness. No current back pain Back surgery 09/2024 for lumbar stenosis and radiculopathy (right- Dr. Gonzales) Celiac disease-upcoming appt with Gastroenterology. Issues since surgery. Frequent diarrhea, gas, bloating. Dx age 52, had been stable. Overall good about avoiding gluten Concerns: URI- feeling better. Negative for COVID-19 ROS: General: No fevers, malaise, unintentional weight loss HEENT: see hpi Cardiovascular: No chest pain, palpitations, or leg edema Respiratory: No shortness of breath, wheezing, cough GI: No abdominal pain, nausea, vomiting, diarrhea, constipation, melena, hematochezia : No dysuria, hematuria, increased urinary frequency, decreased urinary output MSK: No myalgia, back pain, see hpi Neuro: No headaches, weakness, paresthesias Skin: No rashes or lesions EXAM: Constitutional - Awake and Alert, No apparent distress Eyes - PERRL Cardiovascular - S1S2, RRR, No edema Respiratory - Normal lung expansion, Normal respiratory effort, No respiratory distress, CTA bilaterally Extremities - no calf tenderness bilaterally, no swelling MSK -focal tenderness over the lateral aspect of the left hip-full range of motion Skin - Warm/Dry Neurological - Alert & oriented x3 Psychological - Appropriate affect PFSH Medical History (Updated 04/25/25 @ 08:25 by JOCELYN Paul) Hyperlipidemia Hypertension Elevated CPK Surgical History (Updated 04/24/25 @ 15:36 by Lilibeth Mauro) History of colonoscopy (~10/17/12) Previous back surgery History of cardiac catheterization H/O angioplasty Hx of hysterectomy H/O basal cell carcinoma excision H/O lumbar discectomy History of total left knee replacement Family History Mother Lung cancer Arthritis Father Multiple sclerosis Sister Arthritis Leukemia Social History Housing: House Alcohol intake: former Patient Tobacco Use Status: Never used Tobacco e-Cigarette/Vaping Use: Never Used Current occupational status: retired Cognitive needs: No Hearing needs: No Vision needs: Yes (rx glasses) Questionnaire Thrive Questionnaire Date Thrive assessed: 01/30/25 AUDIT C Alcohol Use Questionnaire (AUDIT-C) 1. How often do you have a drink containing alcohol?: Never Total Score: 0 CHRISTIANO-7 AMB Questionnaire CHRISTIANO-7 Date CHRISTIANO - 7 assessed: 01/30/25 Source: Developed by Drs. Reed Travis, Sofi Sparks, Hemant Garcia and colleagues, with an educational mikaela from [employer]. Physical exam (Primary Care) Tobacco/Smoking Status: Tobacco use Status Tobacco use date assessed 01/30/25 04/25/25 07:56 Patient Tobacco Use Status Never used Tobacco 04/25/25 07:56 e-Cigarette/Vaping Use Never Used 04/25/25 07:56 Thrive Assessment: Date of Thrive Assessment Date Thrive assessed 01/30/25 04/25/25 07:56 Coding Level of Care Code Est Pt Level 4 (85362) Complex EM visit Add On G2211 Diagnoses Primary hypertension I10 Hypertension type: primary hypertension Hyperlipidemia, unspecified hyperlipidemia type E78.5 Hyperlipidemia type: unspecified Celiac disease K90.0 Bursitis of left hip M70.72 Assessment & Plan Assessment & Plan (1) Hypertension: Code(s): I10 - Essential (primary) hypertension Category: Medical Qualifiers: Hypertension type: primary hypertension Qualified Code(s): I10 - Essential (primary) hypertension Plan: Controlled on recheck. Continue current therapies (2) Hyperlipidemia: Code(s): E78.5 - Hyperlipidemia, unspecified Category: Medical Qualifiers: Hyperlipidemia type: unspecified Qualified Code(s): E78.5 - Hyperlipidemia, unspecified Plan: Recheck lipid profile. We will follow up with Cardiology regarding medication initiation if indicated. Recheck CPK (3) Celiac disease: Code(s): K90.0 - Celiac disease Category: Medical Plan: Stable overall. Follow-up with Gastroenterology. Gluten free diet. Agree with probiotic (4) Bursitis of left hip: Code(s): M70.72 - Other bursitis of hip, left hip Category: Medical Plan: XR of the left hip reviewed, negative for any acute abnormality or osteoarthritis. Suspect bursitis of the left hip given focal tenderness. Refer to orthopedics. Will trial prednisone taper Plan Follow-up in 4 months. Labs to be completed following visit today Orders: Orders Creatine Kinase Total Today E78.5 - Hyperlipidemia, unspecified, R74.8 - Abnormal levels of other serum enzymes Lipid Panel Today E78.5 - Hyperlipidemia, unspecified Referrals Orthopedics Referral M70.72 - Other bursitis of hip, left hip Medications: New prednisone see taper instructions 10 mg PO DIRECTED 30 tabs 0RF
--- OUTSIDE RECORDS SUMMARY | 2025-04-25 07:57 | XMS_ITS | Patient Health Record ---
Author Organization [facility] Address [address] [place] [address] Care Team Providers Care Nephrologist Name Role Phone Nasima (RETIRED) Cayetano TOWNSEND Primary Care Provide Esteban Badillo Jr Unavailable Allergies Allergen (clinical drug ingredient) Drug/Non Drug Allergy documented on EMR Reaction Allergy Type Onset Date Status acetaminophen / oxycodone Percocet Unknown Drug Allergy Active Codeine Phosphate Unknown Drug Allergy Active Substance with 5-hdcctdb-5-methylglutar yl-coenzyme A reductase inhibitor mechanism of action (substance) statins (uncoded) Unknown Allergy Acti ve Reason For Referral No Information Medications Medication SIG (Take, Route, Fr equency, Duration) Notes Start Date End Date Status Centrum Active Calcitrate/Vitamin D Active Vitamin D3 Active Aspir-81 Active Vitamin C Active Aleve Active Diovan Active Problems Problem Type SNOMED Code ICD Code Onset Dates Problem Status W/U Status Risk Notes Problem Constipation (73986679) Constipation (564.00) Active confirmed Problem Celiac sprue (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 D def. Surgical History Surgery Date(Month/Year) back surgery in 2000 for a ruptured disc .
[2025-04-25 07:58] VITALS: BP 156/40; PULSE 57; RESP 16; TEMP 36.8; O2SAT 97; BMI 27.3
== END 2025-04-25 08:30 | disposition home or self-care (01) ==
LOC: HO.HMCHD 07:55
PROVIDERS: PCP Internal Medicine; Visit Provider Physician Assistant
DX: I10 Essential (primary) hypertension (principal); E78.5 Hyperlipidemia, unspecified; K90.0 Celiac disease; M70.72 Other bursitis of hip, left hip

== ENCOUNTER → 2025-04-25 07:54 | Outpatient (BNVA) | payer MEDICARE, SELFPAY | PROVIDERS: PCP Internal Medicine; Visit Provider Physician Assistant | DX: I10 Essential (primary) hypertension (principal); E78.5 Hyperlipidemia, unspecified; K90.0 Celiac disease; M70.72 Other bursitis of hip, left hip | CPT/HCPCS: 99212 ==

== ENCOUNTER 2025-04-26 07:18 | Outpatient (REF) | payer MEDICARE, SELFPAY ==
[2025-04-26 08:36] LABS: Cholesterol 225 mg/dL (<200); HDL Cholesterol 55 mg/dL (>40); Triglycerides 69 mg/dL (<150)
== END 2025-04-26 07:19 | disposition home or self-care (01) ==
LOC: HO.LAB 07:18
PROVIDERS: PCP Physician Assistant; Visit Provider Physician Assistant
DX: R74.8 Abnormal levels of other serum enzymes (principal); E78.5 Hyperlipidemia, unspecified
CPT/HCPCS: 36415; 80061; 82550

== ENCOUNTER 2025-05-08 12:51 | Outpatient (AMB) | payer MEDICARE, SELFPAY ==
[2025-05-08 09:54] VITALS: BP 132/74; PULSE 57; TEMP 36.2; O2SAT 98; BMI 26.9
--- NOTE | 2025-05-08 09:54 | MHC.PC.OV ---
Vital Signs 05/08/25 09:54 Height 5 ft 3 in Weight 152 lb BMI 26.9 BP 132/74 Blood Pressure Location Rt brachial Position Sitting Pulse 57 Pulse Source Pulse Oximeter Temp 97.1 F Temp Source Temporal Artery Scan Pulse Oximetry (%) 98 Oxygen Delivery Method Room Air Intake Visit Reasons: Pain in L Leg Answering Service Agent Required: No Accompanied by: Daughter Allergies hydroxychloroquine Allergy (Severe, Verified 05/08/25 09:54) Diarrhea acetaminophen (From Tylenol-Codeine #3) Adverse Reaction (Severe, Verified 05/08/25 09:54) syncope codeine (From Tylenol-Codeine #3) Adverse Reaction (Severe, Verified 05/08/25 09:54) syncope oxycodone (From Percocet) Adverse Reaction (Severe, Verified 05/08/25 09:54) syncopee Medication List - Last Reconciled 05/08/25 by JOCELYN Rausch ascorbate calcium (vitamin C) 500 mg PO DAILY aspirin 81 mg PO DAILY carvedilol 12.5 mg PO BID cholecalciferol (vitamin D3) 125 mcg PO DAILY diclofenac sodium 1% (Arthritis Pain (diclofenac)) 2 grams topical QID estradiol 0.01%(0.1mg/gram) apply pea sized amount to urethra daily for one month and then 3 times a week thereafter. 90 days isosorbide mononitrate ER 30 mg PO DAILY loratadine 10 mg PO DAILY losartan 50 mg PO DAILY Tobacco use date assessed: 05/08/25 Fall risk assessment: No Falls in past year Last assessed Fall Risk: 05/08/25 Dental Screening Dental Screen Date: 05/08/25 Did you have a dental visit in the last 12 months?: Yes Did you have a dental problem in the last 6 months where you did not have access to dental care?: No HPI HPI Comments History of Present Illness Details The patient is an 85-year-old female presenting with daughter here with leg pain and suspected bursitis. The pain began approximately two to three months ago and has persisted despite treatment with prednisone, which was prescribed for suspected bursitis. She was seen on 04/25 by Marcelino BANKS. A referral to Ortho was also submitted. The pain is severe, localized along the leg, and has not improved with steroid treatment. The patient reports numbness and tingling in the leg that shoots down the lateral aspect of left thigh. She had a laminotomy on September 06 for a ligament pressing on a nerve on the right side, which resolved her symptoms on the right side. The current pain is different and more severe, affecting her ability to stand on occasion. She has been taking Advil with some relief. The patient has a history of elevated creatine phosphokinase (CPK) levels, with a recent measurement of 323 on 04/26. Previously, her CPK levels were in the 700s before her laminotomy, indicating a possible ongoing issue. [facility] Medical History (Updated 05/08/25 @ 13:32 by JOCELYN Rausch) Elevated CPK Hyperlipidemia Hypertension Left leg pain Numbness in left leg Surgical History H/O angioplasty H/O basal cell carcinoma excision H/O lumbar discectomy History of cardiac catheterization History of colonoscopy (~10/17/12) History of total left knee replacement Hx of hysterectomy Previous back surgery Family History Mother Lung cancer Arthritis Father Multiple sclerosis Sister Arthritis Leukemia Social History Housing: House Alcohol intake: former Patient Tobacco Use Status: Never used Tobacco e-Cigarette/Vaping Use: Never Used service: No Current occupational status: retired Cognitive needs: No Hearing needs: No Vision needs: Yes (rx glasses) Questionnaire PHQ-9 Over the last 2 weeks, how often have you been bothered by any of the following problems? 1. Little interest or pleasure in doing things: not at all 2. Feeling down, depressed, or hopeless: nearly every day (she's not feeling and she's not feeling herself ) 3. Trouble falling or staying asleep, or sleeping too much: not at all 4. Feeling tired or having little energy: not at all 5. Poor appetite or overeating: not at all 6. Feeling bad about yourself - or that you are a failure or have let yourself or your family down: not at all 7. Trouble concentrating on things, such as reading the newspaper or watching television: not at all 8. Moving or speaking so slowly that other people could have noticed. Or the opposite - being so fidgety or restless that you have been moving around a lot more than usual: not at all 9. Thoughts that you would be better off or of hurting yourself in some way: not at all Total score: 3 Source: Developed by Drs. Reed Travis, Hemant Darden and colleagues, with an educational mikaela from [employer]. Thrive Questionnaire Date Thrive assessed: 05/08/25 I am a: Patient Within the past 12 months, did the food you bought not last and you didn't have the money to get more?: Never true Within the past 12 months, did you worry whether your food would run out before you got money to buy more?: Never true Do you have trouble paying for medicines?: No Do you have trouble getting transportation to medical appointments?: No Do you have trouble paying your heating and electricity bill?: No Do you have trouble taking care of your child, family member or friend?: No Do you have trouble with day-to-day activities such as bathing, preparing meals, shopping, managing finances, etc.?: No Are you currently unemployed and looking for a job?: No Are you interested in more education?: No THRIVE Score: 0 AUDIT C Alcohol Use Questionnaire (AUDIT-C) 1. How often do you have a drink containing alcohol?: Never 3. How often do you have six or more drinks on one occasion?: Never Total Score: 0 CHRISTIANO-7 AMB Questionnaire CHRISTIANO-7 Date CHRISTIANO - 7 assessed: 05/08/25 Feeling nervous, anxious, or on edge: 0 = Not at all Not being able to stop or control worryin = Not at all Worrying too much about different things: 0 = Not at all Trouble relaxin = Not at all Being so restless that it is hard to sit still: 0 = Not at all Becoming easily annoyed or irritable: 0 = Not at all Feeling afraid as if something awful might happen: 0 = Not at all Total CHRISTIANO-7 score (0-4 normal; 5-9 mild; 10-14 moderate; 15-21 severe): 0 Source: Developed by Drs. Reed Travis, Sofi Sparks, Hemant Garcia and colleagues, with an educational mikaela from [employer]. Review of Systems Const Details: CONSTITUTIONAL No fever No trauma RESPIRATORY Negative CARDIOVASCULAR Negative GASTROINTESTINAL Negative MUSCULOSKELETAL Left leg pain- shooting down to knee Denies back pain NEUROLOGICAL Numbness in lateral left thigh PSYCHIATRIC Negative Physical exam (Primary Care) Vital Signs: Last Vital Signs Temp 97.1 F 05/08/25 09:54 Pulse 57 05/08/25 09:54 BP 132/74 05/08/25 09:54 Pulse Ox 98 05/08/25 09:54 Oxygen Delivery Method Room Air 05/08/25 09:54 BMI result Body Mass Index 26.9 GENERAL Well developed, Well nourished, in no apparent distress HEENT Head-Normocephalic Neck- Supple RESPIRATORY Normal I:E, Clear to auscultation CARDIOVASCULAR Regular, rate and rhthym, No murmurs or rubs MUSCULOSKELETAL Back-Normal ROM, nontender, Straight leg raise negative, DTR 2+ symmetrical, Gait normal Left hip- Pain upon palpation of the greater trochanter bursa- mild NEUROLOGICAL Gait normal PSYCHIATRIC Oriented to person, place and time Mood and affect WNL Appearance WNL Speech WNL Thought processes WNL Tobacco/Smoking Status: Tobacco use Status Tobacco use date assessed 05/08/25 05/08/25 09:56 Patient Tobacco Use Status Never used Tobacco 05/08/25 09:56 e-Cigarette/Vaping Use Never Used 05/08/25 09:56 PHQ-9: PHQ-9 Score PHQ-9: Total score 3 05/08/25 13:16 Thrive Assessment: Date of Thrive Assessment Date Thrive assessed 05/08/25 05/08/25 09:56 Coding Level of Care Code Established Pt Est Pt Level 3 (83577) Patient Type Established Diagnoses Bursitis of left hip M70.72 Left leg pain M79.605 Numbness in left leg R20.0 Time Spent (min) 25 Comment Time spent on chart review, H&P and placing orders Assessment & Plan Assessment & Plan (1) Bursitis of left hip: Code(s): M70.72 - Other bursitis of hip, left hip Category: Medical Plan: The patient was initially treated with prednisone for suspected bursitis, but the pain persisted. Physical examination revealed pain upon palpation of the greater trochanter bursa, supporting the diagnosis of bursitis. But this is not the pain patient is most concerned about. Will give Diclofenac gel. Patient advised to be careful with Advil. She will alternate with Tylenol. Orthopedic referral pending. (2) Left leg pain: Code(s): M79.605 - Pain in left leg Category: Medical Plan: Will give Diclofenac gel. Patient was advised to apply heat/ice to the affected area. Will follow up after EMG (3) Numbness in left leg: Code(s): R20.0 - Anesthesia of skin Category: Medical Plan: The patient reports numbness and tingling in the leg, suggesting nerve irritation. An EMG study is recommended to trace the nerve and identify any impingement or irritation. The patient is advised to alternate Advil with Tylenol to manage pain and avoid excessive use of NSAIDs. Gabapentin was discussed but patient declined. Will follow up after EMG. Orders: Orders NE electromyogram (EMG) Today M79.605 - Pain in left leg, R20.0 - Anesthesia of skin Medications: New diclofenac sodium 1% (Arthritis Pain (diclofenac)) apply to single elbow, wrist or hand; for hand includes palm/fingers/back of hand 2 grams topical QID 100 grams 6RF for left hip/leg pain
--- OUTSIDE RECORDS SUMMARY | 2025-05-08 14:09 | XMS_ITS | Patient Health Record ---
Author Organization [facility] Address [address] [place] [address] Care Team Providers Care Transfer Table Operator Helper Name Role Phone Nasima (RETIRED) Cayetano TOWNSEND Primary Care Provide Esteban Badillo Jr Unavailable Allergies Allergen (clinical drug ingredient) Drug/Non Drug Allergy documented on EMR Reaction Allergy Type Onset Date Status acetaminophen / oxycodone Percocet Unknown Drug Allergy Active Codeine Phosphate Unknown Drug Allergy Active Substance with 4-mrplpiq-0-methylglutar yl-coenzyme A reductase inhibitor mechanism of action [...] Status W/U Status Risk Notes Problem Constipation (87253507) Constipation (564.00) Active confirmed Problem Celiac sprue (812191887) 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 D def. Surgical History Surgery Date(Month/Year) back surgery in 2000 for a ruptured disc .
== END 2025-05-08 13:33 | disposition home or self-care (01) ==
LOC: HO.HMCHD 12:52
PROVIDERS: PCP Physician Assistant; Visit Provider Physician Assistant Medical
DX: M70.72 Other bursitis of hip, left hip (principal); M79.605 Pain in left leg; R20.0 Anesthesia of skin

== ENCOUNTER → 2025-05-08 12:51 | Outpatient (BNVA) | payer MEDICARE, SELFPAY | PROVIDERS: PCP Physician Assistant; Visit Provider Physician Assistant Medical | DX: M70.72 Other bursitis of hip, left hip (principal); M79.605 Pain in left leg; R20.0 Anesthesia of skin; Z13.30 Encounter for screening examination for mental health and behavioral disorders, unspecified | CPT/HCPCS: 96127; 99212 ==

== ENCOUNTER 2025-05-21 08:46 | Outpatient (REF) | payer MEDICARE, SELFPAY ==
--- NOTE | 2025-05-21 08:50 | EMG_ITS ---
Chief complaint: History of lumbar spinal stenosis and bilateral L5 nerve compression, per MRI report done 2023. History of lumbar laminotomy September 2024. Most of her symptoms were right-sided prior to surgery. Right-sided symptoms have resolved. Around February 2025, patient noted left lateral hip pain and thigh pain. Diagnosed with bursitis, given steroids. Continues to have pain on left ITB area. No footdrop. Has also noted more numbness on left foot. Reason for referral: Evaluate for peroneal neuropathy versus radiculopathy Referred by: Pushpa BANKS Procedure done: Bilateral lower extremity NCS/EMG Precautions and/or limitations: Previous lumbar surgery The limb temperature was monitored continuously and remained between 32-36 degrees C during the performance of the NCS. Nerve Conduction Studies Anti Sensory Summary Table ?Stim Site NR Onset (ms) Norm Onset (ms) Peak (ms) Norm Peak (ms) O-P Amp (?V) Norm O-P Amp Site1 Site2 Delta-0 (ms) Dist (cm) Ricardo (m/s) Norm Ricardo (m/s) Left Sup Peron Anti Sensory (Ankle) Lateral Leg ? 3.3 4.4 <4.4 7.2 >5.0 Lateral Leg Ankle 3.3 14.0 42 Left Sural Anti Sensory (Lat Mall) Calf ? 2.6 3.5 <4.0 11.4 >5.0 Calf Lat Mall 2.6 14.0 54 Motor Summary Table ?Stim Site NR Onset (ms) Norm Onset (ms) O-P Amp (mV) Norm O-P Amp iAmp (mV) Amp (1st) (%) Site1 Site2 Delta-0 (ms) Dist (cm) Ricardo (m/s) Norm Ricardo (m/s) Left Peroneal Motor (Ext Dig Brev) Ankle ? 5.4 <4.0 1.0 >2.5 1.6 100.0 Ankle Ext Dig Brev 5.4 0.0 B Fib ? 11.0 0.6 1.0 60.0 B Fib Ankle 5.6 19.5 35 >40 Poplt ? 12.2 0.9 1.2 90.0 Poplt B Fib 1.2 4.0 33 >40 Right Peroneal Motor (Ext Dig Brev) Ankle ? 2.7 <4.0 3.1 >2.5 4.1 100.0 Ankle Ext Dig Brev 2.7 0.0 B Fib ? 9.1 2.9 3.9 93.5 B Fib Ankle 6.4 29.0 45 >40 Poplt ? 10.3 3.4 4.4 109.7 Poplt B Fib 1.2 5.0 42 >40 Left Peroneal TA Motor (Tib Ant) Fib Head ? 3.8 <4.2 3.0 3.6 100.0 Fib Head Tib Ant 3.8 0.0 Poplit ? 4.1 <5.7 3.2 3.9 106.7 Poplit Fib Head 0.3 4.0 133 >40.5 Left Tibial Motor (Abd Hernandez Brev) Ankle ? 3.5 <5 7.1 >2.5 10.4 100.0 Ankle Abd Hernandez Brev 3.5 0.0 Knee ? 11.5 5.4 7.6 76.1 Knee Ankle 8.0 38.0 48 >40 EMG ?Side Muscle Nerve Root Ins Act Fibs Psw Amp Dur Poly Recrt Int Pat Comment Left AbdHallucis MedPlantar S1-2 Nml Nml Nml Nml Nml 0 Nml Complete Left AntTibialis Dp Br Peron L4-5 Nml Nml Nml Nml Nml 0 Nml Complete Left PostTibialis Tibial L5, S1 Nml Nml Nml Nml Nml 0 Nml Complete Left MedGastroc Tibial S1-2 Nml Nml Nml Nml Nml 0 Nml Complete Left VastusMed Femoral L2-4 Nml Nml Nml Nml Nml 0 Nml Complete Left Peroneus Long Sup Br Peron L5-S1 Nml Nml Nml Nml Nml 0 Nml Complete Left BicepsFemS Sciatic L5-S1 Nml Nml Nml Nml Nml 0 Nml Complete FINDINGS: Right peroneal nerve, recording EDB, showed prolonged distal latency, small amplitude and slow conduction velocity. No conduction block across fibular neck. When recording at TA muscle, also no conduction block was seen. Noted that left EDB muscle was flat compared to right. Left peroneal nerve was within normal. All other nerves tested were within normal. Concentric needle EMG was performed in selected muscles of the left lower extremity. Study did not reveal signs of electric abnormalities as shown in the table above. IMPRESSION: 1. This is an abnormal study. 2. Small amplitude seen from left peroneal nerve without conduction block across fibular neck. Differential diagnoses include, but not limited to, chronic left L5 radiculopathy or chronic peroneal neuropathy. 3. There is no electrodiagnostic evidence for tibial neuropathy, lumbosacral plexopathy, or peripheral neuropathy. CLINICAL COMMENT: Her symptoms are focal to left greater trochanter and ITB area. She is starting physical therapy soon. No left footdrop despite findings above. Thank you for your kind referral. Blanca Underwood MD, KARI Board Certified, [place] [employer] and Rehabilitation (ABPMR) Board Certified, [place] Board of Electrodiagnostic Medicine (ABEM) [facility] [id number] [facility]
--- OUTSIDE RECORDS SUMMARY | 2025-05-21 10:14 | XMS_ITS | Patient Health Record ---
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 Name Role Phone Nasima (RETIRED) Cayetano TOWNSEND Primary Care Provide Esteban Badillo Jr Unavailable [phone] Allergies Allergen (clinical drug ingredient) Drug/Non Drug Allergy documented on EMR Reaction Allergy Type Onset Date Status acetaminophen / oxycodone Percocet Unknown Drug Allergy Active Codeine Phosphate Unknown Drug Allergy Active Substance with 9-zvlzehx-7-methylglutar yl-coenzyme A reductase inhibitor mechanism of action [...] Status W/U Status Risk Notes Problem Constipation (32085378) Constipation (564.00) Active confirmed Problem Celiac sprue (028713233) Celiac sprue (579.0) Active confirmed Plan Of Treatment Future Test Test Name Order Date COLONOSCOPY 09/05/2012 Insurance Providers Payer Name Payer Address Payer Phone Subscriber Number Group Number Insured Name Patient Relationship to Insured Coverage Start Date Coverage End Date [facility] [address] [place], [place] [id number] JEREMIASEL HORVATH Self - patient is the insured Medical (General) History Medical History History ICD Code Celiac disease colonoscopy and egd 05-09-2002 upper GI symptoms with left upper quadra nt pain belching and gas HTN Vit. D def. Surgical History Surgery Date(Month/Year) back surgery in 2000 for a ruptured disc .
== END 2025-05-21 08:47 | disposition home or self-care (01) ==
LOC: HO.NEURO 08:46
PROVIDERS: PCP Physician Assistant; Visit Provider Physician Assistant Medical
DX: R20.0 Anesthesia of skin (principal); M79.605 Pain in left leg; R94.131 Abnormal electromyogram [EMG]
CPT/HCPCS: 95886; 95909

== ENCOUNTER → 2025-05-21 08:50 | Outpatient (BNV) | payer MEDICARE, SELFPAY | PROVIDERS: PCP Physician Assistant; Visit Provider Physical Medicine & Rehabilitation | DX: R20.0 Anesthesia of skin (principal) | CPT/HCPCS: 95886; 95909 ==

== ENCOUNTER 2025-05-29 11:04 | Outpatient (AMB) | payer MEDICARE, SELFPAY ==
--- NOTE | 2025-05-29 11:08 | MHC.OFFVIS ---
Vital Signs 05/29/25 11:09 Height 5 ft 3 in Weight 151 lb BMI 26.7 BP 150/66 H Blood Pressure Location Lt brachial Position Sitting Pulse 52 Pulse Oximetry (%) 96 Oxygen Delivery Method Room Air Intake Visit Reasons: Celiac disease Intake Note: Patient new consult for Celiac disease/last Colonoscopy was with Dr. Reyes 2012. Patient cc: abdominal bloating, heartburn on and off, diarrhea come and go, denies any other GI issues for today. Product Safety Coordinator Required: No Accompanied by: Self / Same As Patient Allergies hydroxychloroquine Allergy (Severe, Verified 05/29/25 11:08) Diarrhea acetaminophen (From Tylenol-Codeine #3) Adverse Reaction (Severe, Verified 05/29/25 11:08) syncope codeine (From Tylenol-Codeine #3) Adverse Reaction (Severe, Verified 05/29/25 11:08) syncope oxycodone (From Percocet) Adverse Reaction (Severe, Verified 05/29/25 11:08) syncopee HPI HPI Celiac disease: Details: Patient is 85-year-old female with PMH of hyperlipidemia, hypertension. Referred by PCP for further evaluation of celiac disease. Patient with a longstanding diagnosis of celiac disease (diagnosed ~30-35 years ago) presents for evaluation due to episodic GI symptoms, primarily abdominal bloating and gurgling, which has recurred more frequently since back surgery in September. Reports past difficulty maintaining a strict gluten-free diet but has recently been more adherent, with assistance from family. Describes improvement in abdominal pain and bloating with stricter gluten avoidance and label reading. Current bowel patterns are daily, with soft but not loose stools; reports no constipation or rectal bleeding. Episodes of diarrhea and increased abdominal discomfort in January, managed with OTC loperamide, now resolved. Heartburn occurs only with dietary triggers (spicy foods), relieved by antacids. Denies regurgitation, dysphagia, or appetite changes. No nausea, vomiting, weight loss, or fevers. Notable for intermittent, self-limited pruritic rashes. 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 Also has musculoskeletal complaints with chronic bursitis, history of spinal stenosis status post back surgery, and prior statin-induced myalgias with persistently elevated CK. No known anemia. Continues on multiple chronic medications. Recent diet modifications ongoing; exploring additional gluten-free options. Social hx: -Diet: Newly adherent to gluten-free diet; improved label vigilance and exploration of gluten-free options; sometimes challenged by eating out, but more accessible gluten-free menus; consuming select gluten-free breads and flours (e.g., [employer]). -Occupation: Retired, active in [employer] 4 days/week; cares for elderly brother; frequent meals out, engaged with family and community activities [facility] Medical History (Updated 05/29/25 @ 17:46 by Gracie Matta CNP) Vitamin D deficiency Elevated LFTs Numbness in left leg Left leg pain Hyperlipidemia Hypertension Elevated CPK Surgical History History of colonoscopy (~10/17/12) Previous back surgery History of cardiac catheterization H/O angioplasty Hx of hysterectomy H/O basal cell carcinoma excision H/O lumbar discectomy History of total left knee replacement Family History Mother Lung cancer Arthritis Father Multiple sclerosis Sister Arthritis Leukemia Social History Housing: House Alcohol intake: former Patient Tobacco Use Status: Never used Tobacco e-Cigarette/Vaping Use: Never Used service: No Current occupational status: retired Cognitive needs: No Hearing needs: No Vision needs: Yes (rx glasses) Review of Systems Const Reports as per HPI ENT Reports as per HPI Card Reports as per HPI Resp Reports as per HPI GI Reports as per HPI Reports as per HPI Physical Exam Vital Signs: Last Vital Signs Pulse 52 05/29/25 11:09 BP 150/66 H 05/29/25 11:09 Pulse Ox 96 05/29/25 11:09 Oxygen Delivery Method Room Air 05/29/25 11:09 BMI result Body Mass Index 26.7 Const General: healthy appearing, no acute distress and well developed Nutritional Appearance: average body habitus Orientation/consciousness: patient oriented x3 HEENT Head: Yes normal to inspection, Yes normocephalic and Yes atraumatic Face and sinus: Yes normal facial exam Eyes General: appearance normal, both eyes and all related structures Neck Neck: Yes normal visual inspection Resp Effort & Inspection: normal respiratory effort, able to speak in complete sentences, no tracheal deviation and symmetric chest movement Cardio Jugular venous distension: no JVD GI Inspection: Yes normal to inspection and No distended Palpation (GI): Soft to palpation, not firm, nontender and No hepatosplenomegaly present Auscultation: normal bowel sounds Neuro General: patient oriented x3 Gait exam (Neuro): Normal gait present Psych Appearance: grossly normal Mental Status: mental status grossly normal Speech and movement: Normal speech and movement present Affect: normal affect Attitude: cooperative Thought process: Normal thought process present Thought content: Normal thought content present Insight: Good insight present (Psych) Judgement: Good judgement present (Psych) Assessment & Plan Assessment & Plan (1) Celiac disease: Code(s): K90.0 - Celiac disease Category: Medical Plan: Longstanding diagnosis with classic GI symptoms; recent improvement with dietary adherence; positive family history. Additional Testing: Celiac serology; comprehensive metabolic panel; check for anemia; hepatitis serologies; hepatic autoantibodies. Medication Management: Continue current meds; no new prescriptions at this time. Lifestyle Recommendations: Maintain strict gluten-free diet with label vigilance, increased reliance on validated resources, consider input from dietitian. Follow-Up: Reassess symptoms and lab values in 3 months; sooner if red flag symptoms develop. (2) Elevated LFTs: Code(s): R79.89 - Other specified abnormal findings of blood chemistry Category: Medical Plan: Mild persistent elevation of liver enzymes on prior labs; may be celiac-related but warrants exclusion of alternative/autoimmune etiologies. Additional Testing: Comprehensive hepatic panel, autoimmune antibodies, review hepatitis B vaccination status and serology. Medication Management: Monitor; discussed vaccination for hepatitis B (not immune), Jacy declined. Lifestyle Recommendations: Abstain from hepatotoxins; maintain diet adherence. Follow-Up: Review labs, monitor clinical status. (3) Vitamin D deficiency: Code(s): E55.9 - Vitamin D deficiency, unspecified Category: Medical Plan: Celiac-associated malabsorption, persistently low vitamin D despite high-dose supplementation. Additional Testing: Order DEXA scan (bone density) Medication Management: Continue vitamin D supplementation; titrate as needed per results. Lifestyle Recommendations: Weight-bearing exercise as tolerated; nutritional counseling; monitor calcium intake. Follow-Up: Review DEXA. (4) Elevated CPK: Code(s): R74.8 - Abnormal levels of other serum enzymes Category: Medical Plan: Longstanding elevated CK, statin-induced myalgias, ongoing muscle symptoms. Additional Testing: Continued CK monitoring; correlation with muscle/joint symptoms; rheumatology/neurology input as needed. Medication Management: Continue to avoid statins/ezetimibe; manage pain conservatively. Lifestyle Recommendations: Physical therapy as advised; maintain functional activity. Follow-Up: Monitor during routine visits. Plan Follow-up in 3 months or sooner as needed Time: I spent a total of 34 minutes on the date of encounter which includes: Preparing to see the patient (reviewed previous documentation, test results and medical history) Performing a medically appropriate exam and/or evaluation Ordering medications, tests, and procedures Documenting clinical information in the health record Orders: Orders Smooth Muscle Antibody Today K90.0 - Celiac disease, R79.89 - Other specified abnormal findings of blood chemistry Hepatitis A IgM Today K90.0 - Celiac disease, R79.89 - Other specified abnormal findings of blood chemistry Lipase Today K90.0 - Celiac disease, R79.89 - Other specified abnormal findings of blood chemistry XR DEXA axial skeleton Today K90.0 - Celiac disease, Z13.820 - Encounter for screening for osteoporosis Mitochondrial Antibody Today K90.0 - Celiac disease, R79.89 - Other specified abnormal findings of blood chemistry Prothrombin Time INR Today K90.0 - Celiac disease, R79.89 - Other specified abnormal findings of blood chemistry Referrals Nutrition/Dietitian Referral K90.0 - Celiac disease Coding Level of Care Code New Pt New Pt Level 3 (46696) Patient Type New Diagnoses Celiac disease K90.0 Elevated LFTs R79.89 Vitamin D deficiency E55.9 Elevated CPK R74.8
[2025-05-29 11:09] VITALS: BP 150/66; PULSE 52; O2SAT 96; BMI 26.7
--- OUTSIDE RECORDS SUMMARY | 2025-05-29 15:33 | XMS_ITS | Patient Health Record ---
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 Role Phone Nasima (RETIRED) Cayetano TOWNSEND Primary Care Provide Esteban Badillo Jr Unavailable [phone] Allergies Allergen (clinical drug ingredient) Drug/Non Drug Allergy documented on EMR Reaction Allergy Type Onset Date Status acetaminophen / oxycodone Percocet Unknown Drug Allergy Active Codeine Phosphate Unknown Drug Allergy Active Substance with 5-bbwsgce-3-methylglutar yl-coenzyme A reductase inhibitor mechanism of action [...] Status W/U Status Risk Notes Problem Constipation (54948135) Constipation (564.00) Active confirmed Problem Celiac sprue (403185893) Celiac sprue (579.0) Active confirmed Plan Of Treatment Future Test Test Name Order Date COLONOSCOPY 09/05/2012 Insurance Providers Payer Name Payer Address Payer Phone Subscriber Number Group Number Insured Name Patient Relationship to Insured Coverage Start Date Coverage End Date [facility] [address] [place], [place] [id number] [phone] [id number] JEREMIASEL HORVATH Self - patient is the insured Medical (General) History Medical History History ICD Code Celiac disease colonoscopy and egd 05-09-2002 upper GI symptoms with left upper quadra nt pain belching and gas HTN Vit. D def. Surgical History Surgery Date(Month/Year) back surgery in 2000 for a ruptured disc .
== END 2025-05-29 11:59 | disposition home or self-care (01) ==
LOC: HO.HGI 11:04
PROVIDERS: PCP Internal Medicine; Visit Provider Nurse Practitioner Family
DX: K90.0 Celiac disease (principal); R79.89 Other specified abnormal findings of blood chemistry; E55.9 Vitamin D deficiency, unspecified; R74.8 Abnormal levels of other serum enzymes
CPT/HCPCS: 99203

== ENCOUNTER → 2025-05-29 11:04 | Outpatient (BNVA) | payer MEDICARE, SELFPAY | PROVIDERS: PCP Internal Medicine; Visit Provider Nurse Practitioner Family | DX: K90.0 Celiac disease (principal); R79.89 Other specified abnormal findings of blood chemistry; E55.9 Vitamin D deficiency, unspecified; R74.8 Abnormal levels of other serum enzymes | CPT/HCPCS: 99202 ==

== ENCOUNTER 2025-05-30 08:17 | Outpatient (REF) | payer MEDICARE, SELFPAY ==
--- OUTSIDE RECORDS SUMMARY | 2025-05-30 08:31 | XMS_ITS | Patient Health Record ---
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 Name Role Phone Nasima (RETIRED) Cayetano TOWNSEND Primary Care Provide Esteban Badillo Jr Unavailable Allergies Allergen (clinical drug ingredient) Drug/Non Drug Allergy documented on EMR Reaction Allergy Type Onset Date Status acetaminophen / oxycodone Percocet Unknown Drug Allergy Active Codeine Phosphate Unknown Drug Allergy Active Substance with 9-chwnhbg-6-methylglutar yl-coenzyme A reductase inhibitor mechanism of action [...] Status W/U Status Risk Notes Problem Constipation (30496271) Constipation (564.00) Active confirmed Problem Celiac sprue (712496949) Celiac sprue (579.0) Active confirmed Plan Of Treatment Future Test Test Name Order Date COLONOSCOPY 09/05/2012 Insurance Providers Payer Name Payer Address Payer Phone Subscriber Number Group Number Insured Name Patient Relationship to Insured Coverage Start Date Coverage End Date [facility] [address] [place], [place] [id number] JEREMIASEL HORVATH Self - patient is the insured Medical (General) History Medical History History ICD Code Celiac disease colonoscopy and egd 05-09-2002 upper GI symptoms with left upper quadra nt pain belching and gas HTN Vit. D def. Surgical History Surgery Date(Month/Year) back surgery in 2000 for a ruptured disc .
[2025-05-30 10:29] LABS: Lipase 29 U/L (8-78)
[2025-05-30 10:31] LABS: INTERNATIONAL NORM RATIO 1.0 (0.9-1.1); Prothrombin Time 11.1 SEC (10.9-12.4)
[2025-05-30 10:38] LABS: Hepatitis A Antibody IgM 0.18 Index (0-0.79); ~Hepatitis A Antibody IgM Nonreactive (Nonreactive)
== END 2025-05-30 08:18 | disposition home or self-care (01) ==
LOC: HO.LAB 08:17
PROVIDERS: PCP Physician Assistant; Visit Provider Nurse Practitioner Family
DX: Z11.59 Encounter for screening for other viral diseases (principal); R79.89 Other specified abnormal findings of blood chemistry; K90.0 Celiac disease
CPT/HCPCS: 36415; 83690; 85610; 86015; 86381; 86709

== ENCOUNTER 2025-06-04 10:11 | Outpatient (AMB) | payer MEDICARE, SELFPAY ==
--- NOTE | 2025-06-04 10:17 | MHC.PC.OV ---
Vital Signs 06/04/25 10:21 06/04/25 11:11 Height 5 ft 3 in Weight 69.4 kg BMI 27.1 BP 168/72 H Respiration 18 Pulse 54 Pulse Source Pulse Oximeter Temp 96.3 F L Temp Source Temporal Artery Scan Pulse Oximetry (%) 97 Oxygen Delivery Method Room Air Intake Visit Reasons: Pre-op Eye / Cat Surg Records Management Manager Required: No Accompanied by: Self / Same As Patient Allergies hydroxychloroquine Allergy (Severe, Verified 06/04/25 10:17) Diarrhea acetaminophen (From Tylenol-Codeine #3) Adverse Reaction (Severe, Verified 06/04/25 10:17) syncope codeine (From Tylenol-Codeine #3) Adverse Reaction (Severe, Verified 06/04/25 10:17) syncope oxycodone (From Percocet) Adverse Reaction (Severe, Verified 06/04/25 10:17) syncopee Medication List - Last Reconciled 06/04/25 by JOCELYN Paul ascorbate calcium (vitamin C) 500 mg PO DAILY aspirin 81 mg PO DAILY carvedilol 12.5 mg PO BID cholecalciferol (vitamin D3) 125 mcg PO DAILY diclofenac sodium 1% (Arthritis Pain (diclofenac)) 2 grams topical QID estradiol 0.01%(0.1mg/gram) apply pea sized amount to urethra daily for one month and then 3 times a week thereafter. 90 days isosorbide mononitrate ER 30 mg PO DAILY loratadine 10 mg PO DAILY losartan 50 mg PO DAILY Tobacco use date assessed: 05/08/25 Dental Screening Dental Screen Date: 05/08/25 HPI HPI Comments History of Present Illness Details 85-year-old female with history of CAD, hypertension, hyperlipidemia, celiac disease, GERD, CKD, SLE presents to the office for follow-up and for preoperative clearance. She follows with [facility] [place]-Dr. Key We will be undergoing cataract excision with insertion of intra-ocular lenses Left eye-06/12 Right eye- 06/19 Functional capacity: Able to ascend 4 flights of stairs and walk over 100 ft without any dyspnea on exertion. No chest pain, lightheadedness, palpitations No history of adverse effects/complications of anesthesia. Reports she prefers light anesthesia Blood thinners: Aspirin 81 mg EKG 06/04: Sinus bradycardia, rate 56, no ST/T-wave abnormalities. No AV donna blocks.. Reviewed last echocardiogram from [facility], no significant changes. Last echocardiogram 12/2018: Normal LV systolic function with EF 65-70%, normal LV size with mild concentric hypertrophy. Grade 2 diastolic dysfunction. Mild left atrial enlargement. Mild chordal BEN without obstruction No history of seizures No diabetes No history of heart failure History of multiple surgeries including Coronary artery disease- has been stable, no chest pains. Cardiac catheterization 2014 with angiography/angioplasty Follows biannually with cardiology Labs 06/04/2025: Cr 0.89, GFR >60, Lytes satisfactory Hgb/Hct 12.6/38.1% Reports having a meeting with Ophthalmology today for preprocedure evaluation CAD/HLD-follows with Junaid in [place] [facility] regularly, will now be following with Dr. Addison. On Imdur, losartan, Coreg, aspirin. No longer on Zetia. No recent anginal chest pains. Off statin and Zetia due to myalgia and elevated CK. Last LDL 157. Hypertension-compliant with carvedilol Imdur, losartan. Blood pressure in the office today elevated at 168/72, but difficult to auscultate. Has previously been well controlled at prior visits including at most recent cardiology visit OA: Multiple joint back, knee pain, right elbow. Worsening is left hip pain. Occ swollen. Taking advil. Radiates into L thigh. Occ paresthesias, no weakness. No current back pain. Back surgery 09/2024 for lumbar stenosis and radiculopathy (right- Dr. Gonzales). No ongoing pain. She has been going through physical therapy as well for left hip bursitis as well as spinal stenosis and finds this helpful. Celiac disease-Following [facility]. Issues since surgery. Frequent diarrhea, gas, bloating. Dx age 52, had been stable. Overall good about avoiding gluten SLE-previously on hydroxychloroquine but discontinued due to side effects Concerns: None ROS: General: No fevers, malaise, unintentional weight loss HEENT: No blurred vision, diplopia. No sore throat, nasal congestion, rhinorrhea, sinus pain, ear pain Cardiovascular: No chest pain, palpitations, or leg edema Respiratory: No shortness of breath, wheezing, cough GI: No abdominal pain, nausea, vomiting, diarrhea, constipation, melena, hematochezia : No dysuria, hematuria, increased urinary frequency, decreased urinary output MSK: No myalgia, back pain. see hpi Neuro: No headaches, weakness, paresthesias Skin: No rashes or lesions EXAM: Constitutional - Awake and Alert, No apparent distress Eyes - PERRL Cardiovascular - S1S2, RRR, No edema Respiratory - Normal lung expansion, Normal respiratory effort, No respiratory distress, CTA bilaterally Extremities - no calf tenderness bilaterally, no swelling MSK -focal tenderness over the lateral aspect of the left hip-full range of motion Skin - Warm/Dry Neurological - Alert & oriented x3 Psychological - Appropriate affect [facility] Medical History (Updated 06/04/25 @ 13:11 by JOCELYN Paul) CAD (coronary artery disease) Vitamin D deficiency Elevated LFTs Numbness in left leg Left leg pain Hyperlipidemia Hypertension Elevated CPK Surgical History History of colonoscopy (~10/17/12) Previous back surgery History of cardiac catheterization H/O angioplasty Hx of hysterectomy H/O basal cell carcinoma excision H/O lumbar discectomy History of total left knee replacement Family History Mother Lung cancer Arthritis Father Multiple sclerosis Sister Arthritis Leukemia Social History Housing: House Alcohol intake: former Patient Tobacco Use Status: Never used Tobacco e-Cigarette/Vaping Use: Never Used service: No Current occupational status: retired Cognitive needs: No Hearing needs: No Vision needs: Yes (rx glasses) Questionnaire Thrive Questionnaire Date Thrive assessed: 05/08/25 CHRISTIANO-7 AMB Questionnaire CHRISTIANO-7 Date CHRISTIANO - 7 assessed: 05/08/25 Source: Developed by Drs. Reed Travis, Sofi Sparks, Hemant Garcia and colleagues, with an educational mikaela from [employer]. Physical exam (Primary Care) Vital Signs: Last Vital Signs Temp 96.3 F L 06/04/25 10:21 Pulse 54 06/04/25 10:21 Resp 18 06/04/25 10:21 BP 168/72 H 06/04/25 11:11 Pulse Ox 97 06/04/25 10:21 Oxygen Delivery Method Room Air 06/04/25 10:21 BMI result Body Mass Index 27.1 Tobacco/Smoking Status: Tobacco use Status Tobacco use date assessed 05/08/25 06/04/25 10:20 Patient Tobacco Use Status Never used Tobacco 06/04/25 10:20 e-Cigarette/Vaping Use Never Used 06/04/25 10:20 Thrive Assessment: Date of Thrive Assessment Date Thrive assessed 05/08/25 06/04/25 10:20 Coding Level of Care Code Est Pt Level 5 (58697) Diagnoses Pre-op evaluation Z01.818 Primary hypertension I10 Hypertension type: primary hypertension Hyperlipidemia, unspecified hyperlipidemia type E78.5 Hyperlipidemia type: unspecified CAD (coronary artery disease) I25.10 Time Spent (min) 45 Assessment & Plan Assessment & Plan (1) Pre-op evaluation: Code(s): Z01.818 - Encounter for other preprocedural examination Category: Medical Plan: RCRI score 1. As noted in HPI: HX CAD stable. No chest pains. EKG without ischemic changes. Good functional capacity Labs reassuring Low risk procedure. At time of examination, no contraindication exists that should preclude Ms. Mcknight from undergoing cataract extraction. Cleared for surgery Recommendation for medication holds prior to surgery: Hold aspirin for 5 days prior to procedure. Resume morning after surgery Hold losartan morning of surgery. Resume as scheduled after procedure (2) Hypertension: Code(s): I10 - Essential (primary) hypertension Category: Medical Qualifiers: Hypertension type: primary hypertension Qualified Code(s): I10 - Essential (primary) hypertension Plan: Elevated in the office, but previously well controlled including at OV 3 weeks ago and at last cardiology visit. She will continue current medications and check blood pressures at home. She will reach out to the office with blood pressures. Hold losartan as above (3) Hyperlipidemia: Code(s): E78.5 - Hyperlipidemia, unspecified Category: Medical Qualifiers: Hyperlipidemia type: unspecified Qualified Code(s): E78.5 - Hyperlipidemia, unspecified Plan: Lipid panel ordered. Has not tolerated statins/zetia in the past. Continue diet lower in saturated fats and highly processed foods. Continue following with cardiology (4) CAD (coronary artery disease): Code(s): I25.10 - Atherosclerotic heart disease of [place] coronary artery without angina pectoris Category: Medical Plan: Stable. No anginal chest pain. Continue current therapies. Hold aspirin as above Plan Follow-up as scheduled. Labs to be completed following visit Orders: Orders Basic Metabolic Panel Today E78.5 - Hyperlipidemia, unspecified, I10 - Essential (primary) hypertension, Z01.818 - Encounter for other preprocedural examination Liver Panel Today E78.5 - Hyperlipidemia, unspecified, I10 - Essential (primary) hypertension, Z01.818 - Encounter for other preprocedural examination Complete Blood Count Auto Diff Today E78.5 - Hyperlipidemia, unspecified, I10 - Essential (primary) hypertension, Z01.818 - Encounter for other preprocedural examination
[2025-06-04 10:21] VITALS: PULSE 54; RESP 18; TEMP 35.7; O2SAT 97; BMI 27.1
[2025-06-04 11:11] VITALS: BP 168/72
--- OUTSIDE RECORDS SUMMARY | 2025-06-04 11:26 | XMS_ITS | Patient Health Record ---
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 Role Phone Nasima (RETIRED) Cayetano TOWNSEND Primary Care Provide Esteban Badillo Jr Unavailable Allergies Allergen (clinical drug ingredient) Drug/Non Drug Allergy documented on EMR Reaction Allergy Type Onset Date Status acetaminophen / oxycodone Percocet Unknown Drug Allergy Active Codeine Phosphate Unknown Drug Allergy Active Substance with 0-fkcdzke-8-methylglutar yl-coenzyme A reductase inhibitor mechanism of action [...] Status W/U Status Risk Notes Problem Constipation (96129536) Constipation (564.00) Active confirmed Problem Celiac sprue (224840434) Celiac sprue (579.0) Active confirmed Plan Of Treatment Future Test Test Name Order Date COLONOSCOPY 09/05/2012 Insurance Providers Payer Name Payer Address Payer Phone Subscriber Number Group Number Insured Name Patient Relationship to Insured Coverage Start Date Coverage End Date [facility] [address] [place], [place] [id number] JEREMIASEL HORVATH Self - patient is the insured Medical (General) History Medical History History ICD Code Celiac disease colonoscopy and egd 05-09-2002 upper GI symptoms with left upper quadra nt pain belching and gas HTN Vit. D def. Surgical History Surgery Date(Month/Year) back surgery in 2000 for a ruptured disc .
== END 2025-06-04 11:13 | disposition home or self-care (01) ==
LOC: HO.HMCHD 10:12
PROVIDERS: PCP Physician Assistant; Visit Provider Physician Assistant
DX: Z01.818 Encounter for other preprocedural examination (principal); I10 Essential (primary) hypertension; E78.5 Hyperlipidemia, unspecified; I25.10 Atherosclerotic heart disease of native coronary artery without angina pectoris

== ENCOUNTER → 2025-06-04 10:11 | Outpatient (BNVA) | payer MEDICARE, SELFPAY | PROVIDERS: PCP Physician Assistant; Visit Provider Physician Assistant | DX: Z01.818 Encounter for other preprocedural examination (principal); H26.9 Unspecified cataract; I10 Essential (primary) hypertension; M19.90 Unspecified osteoarthritis, unspecified site; K90.0 Celiac disease; E78.5 Hyperlipidemia, unspecified; I25.10 Atherosclerotic heart disease of native coronary artery without angina pectoris; M32.9 Systemic lupus erythematosus, unspecified; Z79.82 Long term (current) use of aspirin; Z79.899 Other long term (current) drug therapy | CPT/HCPCS: 99212 ==

== ENCOUNTER 2025-06-04 11:19 | Outpatient (REF) | payer MEDICARE, SELFPAY ==
[2025-06-04 13:06] LABS: MANUAL DIFF FLAG NO
[2025-06-04 13:10] LABS: Hematocrit 38.1 % (37.0-47.0); Hemoglobin 12.6 g/dl (12.0-16.0); Imm Gran Abs Auto 0.01 X10*3/uL (0.00-0.03); Imm Gran Pct Auto 0.1 % (0.0-0.4); Lymphocytes Absolute Auto 2.5 X10*3/uL (1.2-4.9); Mean Corpuscular HGB Conc 33.1 g/dl (31.0-35.0); Mean Corpuscular Hemoglobin 31.5 pg (27.0-33.0); Mean Corpuscular Volume 95.3 fL (80.0-98.0); NRBC Abs Auto 0.000 X10*3/uL (0.0-0.012); NRBC Pct Auto 0.0 /100WBC (0.0-0.2); Platelet Count 244 X10*3/uL (160-400); Red Blood Count 4.00 X10*6/uL (4.20-5.50); White Blood Count 8.1 X10*3/uL (4.8-10.8)
[2025-06-04 13:25] LABS: Alanine Aminotransferase 20 U/L (0-31); Albumin Level 4.1 g/dL (3.5-5.0); Alkaline Phosphatase 37 U/L (39-117); Anion Gap 10 (12-20); Aspartate Amino Transferase 28 U/L (5-31); Blood Urea Nitrogen 19 mg/dL (9-16); Calcium 9.3 mg/dL (8.4-10.2); Carbon Dioxide 27 mmol/L (22-29); Chloride 109 mmol/L (96-108); Estimated Glomerular Filt Rate > 60; Potassium 4.6 mmol/L (3.3-5.1); Sodium 141 mmol/L (135-145); Total Protein 6.4 g/dL (6.5-8.0)
== END 2025-06-04 11:20 | disposition home or self-care (01) ==
LOC: HO.10HDL 11:19
PROVIDERS: Visit Provider Physician Assistant
DX: Z01.818 Encounter for other preprocedural examination (principal); I10 Essential (primary) hypertension; E78.5 Hyperlipidemia, unspecified
CPT/HCPCS: 36415; 80048; 80076; 85025

== ENCOUNTER 2025-06-23 08:34 | Outpatient (AMB) | payer MEDICARE, SELFPAY ==
--- NOTE | 2025-06-23 07:26 | A.OFFPC_ITS ---
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 Accompanied by: Self / Same As Patient Allergies hydroxychloroquine Allergy (Severe, Verified 06/23/25 07:26) Diarrhea acetaminophen (From Tylenol-Codeine #3) Adverse Reaction (Severe, Verified 06/23/25 07:26) syncope codeine (From Tylenol-Codeine #3) Adverse Reaction (Severe, Verified 06/23/25 07:26) syncope oxycodone (From Percocet) Adverse Reaction (Severe, Verified 06/23/25 07:26) syncopee Medication List - Last Reconciled 06/23/25 by JOCELYN Paul ascorbate calcium (vitamin C) 500 mg PO DAILY aspirin 81 mg PO DAILY carvedilol 12.5 mg PO BID cholecalciferol (vitamin D3) 125 mcg PO DAILY diclofenac sodium 1% (Arthritis Pain (diclofenac)) 2 grams topical QID estradiol 0.01%(0.1mg/gram) apply pea sized amount to urethra daily for one month and then 3 times a week thereafter. 90 days isosorbide mononitrate ER 30 mg PO DAILY ketorolac 0.5% drps ophthalmic (eye) ONCE loratadine 10 mg PO DAILY losartan 100 mg PO DAILY Tobacco use date assessed: 05/08/25 Dental Screening Dental Screen Date: 05/08/25 HPI HPI Comments History of Present Illness Details 85-year-old female with history of CAD, hypertension, hyperlipidemia, celiac disease, GERD, CKD, SLE presents to the office today for blood pressure follow- up. She was seen for preoperative clearance about 3 weeks ago and blood pressures were elevated. Losartan was increased to 75 mg daily. She has been checking blood pressures at home with systolic pressures 140s-150s. No headaches, vision changes, chest pains. Reports BP cuff is brand new. [facility] Medical History (Updated 06/04/25 @ 13:11 by JOCELYN Paul) CAD (coronary artery disease) Vitamin D deficiency Elevated LFTs Numbness in left leg Left leg pain Hyperlipidemia Hypertension Elevated CPK Surgical History History of colonoscopy (~10/17/12) Previous back surgery History of cardiac catheterization H/O angioplasty Hx of hysterectomy H/O basal cell carcinoma excision H/O lumbar discectomy History of total left knee replacement Family History Mother Lung cancer Arthritis Father Multiple sclerosis Sister Arthritis Leukemia Social History Housing: House Alcohol intake: former Patient Tobacco Use Status: Never used Tobacco e-Cigarette/Vaping Use: Never Used service: No Current occupational status: retired Cognitive needs: No Hearing needs: No Vision needs: Yes (rx glasses) Questionnaire Thrive Questionnaire Date Thrive assessed: 05/08/25 CHRISTIANO-7 AMB Questionnaire CHRISTIANO-7 Date CHRISTIANO - 7 assessed: 05/08/25 Source: Developed by Drs. Reed Travis, Sofi Sparks, Hemant Garcia and colleagues, with an educational mikaela from [employer]. Physical exam (Primary Care) Vital Signs: Last Vital Signs Temp 97.8 F 06/23/25 08:46 Pulse 58 06/23/25 08:46 Resp 16 06/23/25 08:46 BP 138/40 L 06/23/25 08:46 Pulse Ox 97 06/23/25 08:46 Oxygen Delivery Method Room Air 06/23/25 08:46 BMI result Body Mass Index 27.4 Tobacco/Smoking Status: Tobacco use Status Tobacco use date assessed 05/08/25 06/23/25 07:27 Patient Tobacco Use Status Never used Tobacco 06/23/25 07:27 e-Cigarette/Vaping Use Never Used 06/23/25 07:27 Thrive Assessment: Date of Thrive Assessment Date Thrive assessed 05/08/25 06/23/25 07:27 Coding Level of Care Code Est Pt Level 4 (07989) Diagnoses Primary hypertension I10 Hypertension type: primary hypertension Assessment & Plan Assessment & Plan (1) Hypertension: Code(s): I10 - Essential (primary) hypertension Category: Medical Qualifiers: Hypertension type: primary hypertension Qualified Code(s): I10 - Essential (primary) hypertension Plan: Uncontrolled. Increase losartan to 100mg daily. Continue imdur 30mg daily and coreg 12.5mg bid. Low sodium diet. Continue checking BP at home and notify office of recent readings. Plan Follow-up in the office in August as scheduled with labs completed prior to visit Orders: Orders Basic Metabolic Panel 2 Months I10 - Essential (primary) hypertension Medications: New losartan 100 mg PO DAILY 90 tabs 1RF Discontinued losartan Discontinued Reason: Doctor's Order 75 mg (1.5 x 50 mg) PO DAILY 90 tabs 1RF
[2025-06-23 08:46] VITALS: BP 138/40; PULSE 58; RESP 16; TEMP 36.6; O2SAT 97; BMI 27.4
== END 2025-06-23 09:48 | disposition home or self-care (01) ==
LOC: HO.HMCHD 08:34
PROVIDERS: PCP Physician Assistant; Visit Provider Physician Assistant
DX: I10 Essential (primary) hypertension (principal)

== ENCOUNTER → 2025-06-23 08:34 | Outpatient (BNVA) | payer MEDICARE, SELFPAY | PROVIDERS: PCP Physician Assistant; Visit Provider Physician Assistant | DX: I10 Essential (primary) hypertension (principal); Z79.899 Other long term (current) drug therapy | CPT/HCPCS: 99212 ==

== ENCOUNTER 2025-07-11 08:51 | Outpatient (REF) | payer MEDICARE, SELFPAY ==
--- OUTSIDE RECORDS SUMMARY | 2025-07-12 08:56 | XMS_ITS | Patient Health Record ---
Author Organization [facility] Address [address] [place] [address] Care Team Providers Care Duplex Trimmer Name Role Phone Nasima (RETIRED) Cayetano TOWNSEND Primary Care Provide Esteban Badillo Jr Unavailable [phone] Allergies Allergen (clinical drug ingredient) Drug/Non Drug Allergy documented on EMR Reaction Allergy Type Onset Date Status acetaminophen / oxycodone Percocet Unknown Drug Allergy Active Codeine Phosphate Unknown Drug Allergy Active Substance with 3-rcdmpjm-4-methylglutar yl-coenzyme A reductase inhibitor mechanism of action [...] Status W/U Status Risk Notes Problem Constipation (35921650) Constipation (564.00) Active confirmed Problem Celiac sprue (389510622) 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 D def. Surgical History Surgery Date(Month/Year) back surgery in 2000 for a ruptured disc .
== END 2025-07-11 08:52 | disposition home or self-care (01) ==
LOC: HO.HOSX 08:51
PROVIDERS: Visit Provider Physician Assistant
DX: Z13.89 Encounter for screening for other disorder (principal)

== ENCOUNTER 2025-08-07 12:25 | Outpatient (AMB) | payer MEDICARE, SELFPAY ==
--- NOTE | 2025-08-07 12:42 | A.OFFVIS_ITS ---
Intake Visit Reasons: 1Y/UA Intake Note: Patient is present for 1Y/UA Urology Medication:VITMIN C,ESTRADIOL Antibiotic Allergy:NONE Blood Thinner:ASPIRIN Supercharger Mechanic Required: No Allergies hydroxychloroquine Allergy (Severe, Verified 08/07/25 13:18) Diarrhea acetaminophen (From Tylenol-Codeine #3) Adverse Reaction (Severe, Verified 08/07/25 13:18) syncope codeine (From Tylenol-Codeine #3) Adverse Reaction (Severe, Verified 08/07/25 13:18) syncope oxycodone (From Percocet) Adverse Reaction (Severe, Verified 08/07/25 13:18) syncopee Medication List - Last Reconciled 08/07/25 by BON Forman-ADRIA ascorbate calcium (vitamin C) 500 mg PO DAILY aspirin 81 mg PO DAILY carvedilol 12.5 mg PO BID cholecalciferol (vitamin D3) 125 mcg PO DAILY diclofenac sodium 1% (Arthritis Pain (diclofenac)) 2 grams topical QID estradiol 0.01%(0.1mg/gram) apply pea sized amount to urethra daily for one month and then 3 times a week thereafter. 90 days isosorbide mononitrate ER 30 mg PO DAILY 90 days ketorolac 0.5% drps ophthalmic (eye) ONCE loratadine 10 mg PO DAILY losartan 100 mg PO DAILY HPI Comments Details: Jacy is a very pleasant 85-year-old female patient of Dr. Benson. She has a past medical history of hypertension, coronary artery disease, vitamin-D deficiency, and hyperlipidemia. She presents to the office today for follow-up of her lower urinary tract symptoms. In discussion with the patient today she reports urologically she has been doing and feeling well. However she has been having issues with her left hip and has followed up with dermatology for her basal cell carcinoma. She also discusses having had back surgery with Dr. Jones earlier this year and has been recovering well. She reports compliance with Estrace cream as prescribed. She currently denies any bothersome urinary issues. In office urinalysis results reviewed with the patient today. She denie s nocturia, hematuria, dysuria, foul smelling urine, changes to urinary stream, flank pain, fever, and or chills. She is happy with her current voiding parameters. She otherwise offers no other issues or concerns at this time. [facility] Medical History CAD (coronary artery disease) Vitamin D deficiency Elevated LFTs Numbness in left leg Left leg pain Hyperlipidemia Hypertension Elevated CPK Surgical History History of colonoscopy (~10/17/12) Previous back surgery History of cardiac catheterization H/O angioplasty Hx of hysterectomy H/O basal cell carcinoma excision H/O lumbar discectomy History of total left knee replacement Family History Mother Lung cancer Arthritis Father Multiple sclerosis Sister Arthritis Leukemia Social History Housing: House Alcohol intake: former Patient Tobacco Use Status: Never used Tobacco e-Cigarette/Vaping Use: Never Used service: No Current occupational status: retired Cognitive needs: No Hearing needs: No Vision needs: Yes (rx glasses) Review of Systems Const All systems reviewed & are unremarkable except as noted in HPI and below Physical Exam Const General: cooperative, healthy appearing, comfortable, no acute distress, well developed, alert and awake Orientation/consciousness: patient oriented x3 Limitations: no limitations HEENT Head: Yes normal to inspection, Yes normocephalic and Yes atraumatic Ears: hearing grossly normal bilaterally Eyes General: appearance normal, both eyes and all related structures Neck Neck: Yes normal visual inspection and Yes trachea midline Chest Chest palpation & inspection: normal inspection of the chest Resp Effort & Inspection: normal respiratory effort and able to speak in complete sentences Cardio Rate: regular rate GI Inspection: Yes normal to inspection General: Yes no CVA tenderness Back/Spine/Pelvis Back: no CVA tenderness Skin General skin exam: no rashes or lesions noted Neuro General: patient oriented x3 Extrem General: Yes normal to inspection Psych Appearance: grossly normal and well kempt Mental Status: mental status grossly normal Speech and movement: Normal speech and movement present and Clear speech present Affect: normal affect Attitude: cooperative Thought process: Normal thought process present Thought content: Normal thought content present Insight: Fair insight present (Psych) Judgement: Fair judgement present (Psych) Assessment & Plan Assessment & Plan (1) Vaginal atrophy: Code(s): N95.2 - Postmenopausal atrophic vaginitis Category: Medical (2) Lower urinary tract symptoms: Code(s): R39.9 - Unspecified symptoms and signs involving the genitourinary system Category: Medical (3) Urethral caruncle: Code(s): N36.2 - Urethral caruncle Category: Medical (4) Microscopic hematuria: Code(s): R31.29 - Other microscopic hematuria Category: Medical Plan In office urinalysis results reviewed with the patient today; as noted above. We discussed vaginal atrophy and urethral caruncle. Continue Estrace cream as discussed and prescribed; refill provided Patient reports significant improvement in lower urinary tract symptoms she had been experiencing. She currently denies any bothersome urinary issues or concerns. She is happy with her current voiding parameters. Follow-up in 1 year with [facility]; or sooner with any issues, concerns, and or questions. Patient Instructions: The patient had an opportunity to ask questions regarding the treatment plan. All questions were answered. Physical exam, labs, and imaging were discussed and reviewed in detail. As well as risks, benefits, and discussion of treatment choices. No major barriers to understanding were identified. The patient expressed understanding and agreement with the above treatment plan. The patient was made aware they should contact our office by phone for worsening of their current condition, the appearance of new symptoms, or with any questions or concerns. Compliance is encouraged with any medications and follow up testing that is ordered. It is a privilege to be allowed the opportunity to participate in? your urological care.? Again, if you have any questions or concerns If you have any questions or concerns please do not hesitate to contact me. The office is [phone]. This note is constructed using voice recognition software. While every effort has been made to ensure accuracy tie mill operator errors may have been included. Yours sincerely, ALYX Forman Coding Level of Care Code Est Pt Level 3 (07860) Diagnoses Vaginal atrophy N95.2 Lower urinary tract symptoms R39.9 Urethral caruncle N36.2 Microscopic hematuria R31.29
== END 2025-08-07 13:34 | disposition home or self-care (01) ==
LOC: HO.HUSH 12:26
PROVIDERS: PCP Internal Medicine; Visit Provider Nurse Practitioner Family
DX: N95.2 Postmenopausal atrophic vaginitis (principal); R39.9 Unspecified symptoms and signs involving the genitourinary system; N36.2 Urethral caruncle; R31.29 Other microscopic hematuria; Z13.9 Encounter for screening, unspecified
CPT/HCPCS: 99213

== ENCOUNTER → 2025-08-07 12:25 | Outpatient (BNVA) | payer MEDICARE, SELFPAY | PROVIDERS: PCP Internal Medicine; Visit Provider Nurse Practitioner Family | DX: N95.2 Postmenopausal atrophic vaginitis (principal); R39.9 Unspecified symptoms and signs involving the genitourinary system; N36.2 Urethral caruncle; Z13.9 Encounter for screening, unspecified | CPT/HCPCS: 81003; 99212 ==

== ENCOUNTER 2025-08-12 11:00 | Outpatient (RCR) | payer MEDICARE, SELFPAY ==
--- NOTE | 2025-06-06 16:24 | MHC.PT.EP ---
[facility] [place] Office [place] Office [address] [phone] F: [phone] F: [phone] F: [phone] F: [phone] Physical Therapy Plan of Care Date of Evaluation: 05/26/25 Date of Surgery: Diagnosis: Hip bursitis. Assessment: PT is an 85 y/o female with Hx of lumbar discectomy, cardiac cath, who is referred to PT for eval and treat of L hip bursitis who's condition is resulting in decreased tolerance for walking and standing for duration, negotiating stairs, sitting for duration, lifting overhead secondary to decreased trunk ROM, hip and core strength, as well as TTP of L hip, increased posterior LE tissue tension L > R and pain. Pt is deemed an appropriate candidate to receive skilled PT services to address their physical impairments in order to improve their functional ability. Frequency and Duration: The patient will be seen 2 x/ wk x 3 wks. Short Term Goals: initiate home program. LE Sx abolished. [employer] Tin Roller Goals: I with home program. Improve LEFI outcome by at least 9 points. Pt will be able to walk 2 blocks with managed Sx. Improve B hip abd MMT by at least 1/2 MMT grade. Treatment Plan: Modalities to reduce pain, spasms and effusion. Manual therapy to restore motion and function. Therapeutic exercise to improve strength and flexibility. Neuromuscular re-education for posture and balance. Therapeutic activities to return to functional activities of daily living. Electronically signed by: Sahil Camarena PT. Please sign and return to therapist. Thank you for your referral.
--- NOTE | 2025-08-12 17:53 | MHC.PT.DC ---
[facility] [place] Office [place] Office [place] Office [address] [phone] F: [phone] F: [phone] F: [phone] F: [phone] Physical Therapy Discharge Report Diagnosis: Hip bursitis. Date of Surgery: Date of Evaluation: 05/26/25 Date of Discharge: 08/12/25 Treatments to Date: 11 Cancellations to Date: No Shows to Date: Discharge Status: Achieved Goals Improved Function Independent with HEP Discharge Summary: Jacy has been an active and motivated participant in her therapy in and out of the clinic. She has met her therapeutic goals, is managed of her back pain and LE Sx, and is in agreement with DC at this time. Electronically signed by: Sahil Camarena PT. Please sign and return to therapist. Thank you for your referral.
--- NOTE | 2025-08-12 17:57 | MHC.PT.EP ---
[facility] [place] Office [place] Office [place] Office [address] [phone] F: [phone] F: [phone] F: [phone] F: [phone] Physical Therapy Plan of Care Date of Evaluation: 05/26/25 Date of Surgery: Diagnosis: Hip bursitis. Assessment: PT is an 85 y/o female with Hx of lumbar discectomy, cardiac cath, who is referred to PT for eval and treat of L hip bursitis who's condition is resulting in decreased tolerance for walking and standing for duration, negotiating stairs, sitting for duration, lifting overhead secondary to decreased trunk ROM, hip and core strength, as well as TTP of L hip, increased posterior LE tissue tension L > R and pain. Pt is deemed an appropriate candidate to receive skilled PT services to address their physical impairments in order to improve their functional ability. Frequency and Duration: The patient will be seen 2 x/ wk x 3 wks. Short Term Goals: initiate home program. LE Sx abolished. Carding Doubler Goals: I with home program. Improve LEFI outcome by at least 9 points. Pt will be able to walk 2 blocks with managed Sx. Improve B hip abd MMT by at least 1/2 MMT grade. Treatment Plan: Modalities to reduce pain, spasms and effusion. Manual therapy to restore motion and function. Therapeutic exercise to improve strength and flexibility. Neuromuscular re-education for posture and balance. Therapeutic activities to return to functional activities of daily living. Electronically signed by: Sahil Camarena PT. Please sign and return to therapist. Thank you for your referral.
--- NOTE | 2025-08-12 17:57 | MHC.PT.DC ---
[facility] [place] Office [place] Office [place] Office [address] [phone] F: [phone] F: [phone] F: [phone] F: [phone] Physical Therapy Discharge Report Diagnosis: Hip bursitis. Date of Surgery: Date of Evaluation: 05/26/25 Date of Discharge: 08/12/25 Treatments to Date: 11 Cancellations to Date: No Shows to Date: Discharge Status: Achieved Goals Improved Function Independent with HEP Discharge Summary: Jacy has been an active and motivated participant in her therapy in and out of the clinic. She has met her therapeutic goals, is managed of her back pain and LE Sx, and is in agreement with DC at this time. Electronically signed by: Sahil Camarena PT. Please sign and return to therapist. Thank you for your referral.
== END 2025-08-12 17:52 | disposition home or self-care (01) ==
LOC: HO.PT 11:00
PROVIDERS: PCP Physician Assistant; Visit Provider Physician Assistant
DX: M25.552 Pain in left hip (principal); M70.72 Other bursitis of hip, left hip
CPT/HCPCS: 97110; 97161

== ENCOUNTER 2025-08-13 08:08 | Outpatient (REF) | payer MEDICARE, SELFPAY ==
--- NOTE | ~2025-08-13 | MM_ITS ---
EXAMINATION: DXA BONE DENSITY AXIAL HISTORY: K90.0 - Celiac disease TECHNIQUE: [employer] Dual energy absorptiometry (DEXA) of the lumbar spine, total left hip, and femoral neck was performed. COMPARISON: Comparison is made with the prior examination dated 07/26/2019. FINDINGS: The bone mineral density of the lumbar spine is 1.092 g/cm2, corresponding to a T-score of -0.6, and a Z-score of 1.1. This is indicative of normal bone mineral density. This represents a BMD change of 3.7% compared to the prior exam. This is statistically significant. The bone mineral density of the left total hip is 0.655 g/cm2, corresponding to a T-score of -2.8, and a Z-score of -0.7. This is indicative of osteoporosis. This represents a BMD change of 3.8% compared to the prior exam. This is not statistically significant. The bone mineral density of the left femoral neck is 0.790 g/cm2, corresponding to a T-score of -1.8, and a Z-score of 0.5. This is indicative of osteopenia. This represents a BMD change of 10.5% compared to the prior exam. FRACTURE RISK: The FRAX index suggests a ten year probability of major osteoporotic fracture of 22.0%, and of hip fracture 7.4%. MM/XR DEXA axial skeleton IMPRESSION: Based on bone mineral density, and according to World Health Organization (WHO) criteria, the diagnosis is consistent with osteoporosis. Statistically, 68% of repeat scans fall within 1 SD (+/- 0.010 g/cm2 for AP spine L1-L4) and 1 SD (+/- 0.012 g/cm2 for femur total) FRAX is a trademark of the [employer] Metabolic [employer] Disease, a World Health Organization (WHO) Collaborating Center. Electronically signed by: Reed Ch MD 08/13/2025 08:47 AM [facility]
--- NOTE | ~2025-08-13 | MM_ITS ---
EXAMINATION: MM SCREENING DIGITAL BREAST TOMOSYNTHESIS, BILATERAL CLINICAL INFORMATION: Screening. Asymptomatic. COMPARISON: Comparison made to multiple prior, most recent August 17, 2023, and most remote July 04, 2018. TECHNIQUE: Digital breast tomosynthesis is performed in mediolateral oblique and craniocaudal views along with computer-aided detection (CAD). Synthesized 2D images are generated from the tomosynthesis. FINDINGS: BREAST COMPOSITION: There are scattered areas of fibroglandular density. RIGHT BREAST: No significant masses, suspicious calcifications or other abnormalities are seen. LEFT BREAST: Focal asymmetry in the upper outer quadrant anterior depth is not significantly changed since 2018. No significant masses, suspicious calcifications or other abnormalities are seen. MM/MM tomosynthesis screening BI IMPRESSION: BILATERAL BREASTS: Benign, no mammographic evidence of malignancy. Normal interval follow-up is recommended in 12 months. ASSESSMENT: BI-RADS: Category 2: Benign RECOMMENDATION: Routine annual mammography screening. FOLLOW-UP: 1 year F/U This examination should not preclude the clinical evaluation of a suspicious palpable abnormality. This patient's information was entered into a reminder system with a target due date for their next mammogram. Electronically signed by: Martin Richey MD 08/13/2025 07:10 PM [facility]
== END 2025-08-13 08:09 | disposition home or self-care (01) ==
LOC: HO.MAMMO 08:08
PROVIDERS: PCP Physician Assistant; Visit Provider Physician Assistant
DX: M81.0 Age-related osteoporosis without current pathological fracture (principal); K90.0 Celiac disease; Z13.820 Encounter for screening for osteoporosis; Z12.31 Encounter for screening mammogram for malignant neoplasm of breast
CPT/HCPCS: 77063; 77067; 77080

== ENCOUNTER → 2025-08-13 08:15 | Outpatient (BNV) | payer MEDICARE, SELFPAY | PROVIDERS: PCP Physician Assistant; Visit Provider Radiology Diagnostic Radiology | DX: Z12.31 Encounter for screening mammogram for malignant neoplasm of breast (principal); E28.39 Other primary ovarian failure | CPT/HCPCS: 77063; 77067; 77080 ==

== ENCOUNTER 2025-08-14 12:07 | Outpatient (AMB) | payer MEDICARE, SELFPAY ==
--- NOTE | 2025-08-14 12:34 | MHC.AMNUTRGE ---
VS Expanded 08/14/25 13:07 Height 5 ft 2.2 in Weight 153 lb 2.2 oz BMI 27.8 Intake Visit Reasons: Celiac disease Allergies hydroxychloroquine Allergy (Severe, Verified 08/07/25 13:18) Diarrhea acetaminophen (From Tylenol-Codeine #3) Adverse Reaction (Severe, Verified 08/07/25 13:18) syncope codeine (From Tylenol-Codeine #3) Adverse Reaction (Severe, Verified 08/07/25 13:18) syncope oxycodone (From Percocet) Adverse Reaction (Severe, Verified 08/07/25 13:18) syncopee Nutrition Presentation Details: Patient presents for medical nutrition therapy for celiac disease Patient reports having been diagnosed with celiac since the age of 52 however not following dietary restrictions until recently. Patient reports starting to read the labels more carefully, has removed items with gluten from her pantry. Patient reports family members are very supportive and help her out with the dietary restrictions. Patient also wants to know food sources of calcium, nondairy alternatives. BS Monitoring Most Recent Diabetes Results: Creatinine, (0.5-1.4) 0.89 mg/dL 06/04/25 BUN, (9-16) 19 mg/dL H 06/04/25 Sodium, (135-145) 141 mmol/L 06/04/25 Potassium, (3.3-5.1) 4.6 mmol/L 06/04/25 Chloride, (96-108) 109 mmol/L H 06/04/25 Carbon Dioxide, (22-29) 27 mmol/L 06/04/25 Calcium, (8.4-10.2) 9.3 mg/dL 06/04/25 AST, (5-31) 28 U/L 06/04/25 ALT, (0-31) 20 U/L 06/04/25 Total Protein, (6.5-8.0) 6.4 g/dL L 06/04/25 Albumin, (3.5-5.0) 4.1 g/dL 06/04/25 BAO-Rblbtyr-Ro.Jeor Equation Height: 5 ft 2.2 in Weight: 153 lb Resting Metabolic Rate: 1111.38 Calculated Activity Level: Sedentary Calories Needed to Maintain Weight: 1333.66 Diagnosis Nutrition problem #1: altered nutrition labs As related to (etiology) #1: lack of nutrit education As evidenced by (sign/symptom) #1: knowledge deficit of diet PFSH Medical History CAD (coronary artery disease) Vitamin D deficiency Elevated LFTs Numbness in left leg Left leg pain Hyperlipidemia Hypertension Elevated CPK Surgical History History of colonoscopy (~10/17/12) Previous back surgery History of cardiac catheterization H/O angioplasty Hx of hysterectomy H/O basal cell carcinoma excision H/O lumbar discectomy History of total left knee replacement Family History Mother Lung cancer Arthritis Father Multiple sclerosis Sister Arthritis Leukemia Social History Housing: House Alcohol intake: former Patient Tobacco Use Status: Never used Tobacco e-Cigarette/Vaping Use: Never Used service: No Current occupational status: retired Cognitive needs: No Hearing needs: No Vision needs: Yes (rx glasses) Assessment & Plan Assessment & Plan (1) Celiac disease: Code(s): K90.0 - Celiac disease Category: Medical Plan: Must avoid and eliminate all gluten containing foods and its derivatives (see list printed with names of gluten and its derivatives ) Avoid cross contamination (including but not limited to using same cutting board, toaster, double dipping , frying in the same oil) see list of foods naturally free of gluten and 1700 joanne meal plan as a reference Discussed and provided a list of food sources of gluten and derivatives of gluten Discussed foods naturally gluten free and how to incorporate into a healthy meal, following healthy plate method Discussed importance of preventing cross contamination (including but not limited to using same cutting board, toaster, double dipping, frying in same oil as gluten containing foods) Discussed precautions when eating out and how to find places that offer gluten free options Discussed importance of following healthy plate method, including a variety of healthy -gluten free foods - Reviewed food sources of calcium naturally gluten free for (salmon, broccoli comp, seeds, nuts, calcium and vitamin-D fortified dairy alternatives Coding Level of Care Code Nutr Indiv Intake (55821) Diagnoses Celiac disease K90.0 Time Spent (min) 30
[2025-08-14 13:07] VITALS: BMI 27.8
[2025-08-14 13:14] VITALS: BMI 27.8
== END 2025-08-14 14:02 | disposition home or self-care (01) ==
LOC: HO.ENCR 12:07
PROVIDERS: PCP Physician Assistant; Visit Provider Dietitian, Registered
DX: K90.0 Celiac disease (principal)

== ENCOUNTER → 2025-08-14 12:07 | Outpatient (BNVA) | payer MEDICARE, SELFPAY | PROVIDERS: PCP Physician Assistant; Visit Provider Dietitian, Registered | DX: K90.0 Celiac disease (principal); Z71.3 Dietary counseling and surveillance | CPT/HCPCS: 97802 ==

== ENCOUNTER 2025-08-22 07:29 | Outpatient (REF) | payer MEDICARE, SELFPAY ==
--- OUTSIDE RECORDS SUMMARY | 2025-08-22 07:33 | XMS_ITS | Patient Health Record ---
Author Organization [facility] Address [address] [place] [address] Care Team Providers Care Training And Development Specialist Name Role Phone Nasima (RETIRED) Cayetano TOWNSEND Primary Care Provide Esteban Badillo Jr Unavailable Allergies Allergen (clinical drug ingredient) Drug/Non Drug Allergy documented on EMR Reaction Allergy Type Onset Date Status Substance with 4-rvkyyou-9-methylglutar yl-coenzyme A reductase inhibitor mechanism of action (substance) statins (uncoded) Unknown Allergy Acti ve Codeine Phosphate Unknown Drug Allergy Active acetaminophen / oxycodone Percocet Unknown Drug Allergy Active Reason For Referral No Information Medications Medication SIG (Take, Route, Fr equency, Duration) Notes Start Date End Date Status Centrum Active Calcitrate/Vitamin D Active Vitamin D3 Active Aspir-81 Active Vitamin C Active Aleve Active Diovan Active Social History Social History Additional Details Category Social Info Options Details Miscellaneous: Marital status: Occupation: part-time Problems Problem Type SNOMED Code ICD Code Onset Dates Problem Status W/U Status Risk Notes Problem Constipation (55070540) Constipation (564.00) Active confirmed Problem 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 D def. Surgical History Surgery Date(Month/Year) back surgery in 2000 for a ruptured disc .
[2025-08-22 08:45] LABS: Anion Gap 9 (12-20); Blood Urea Nitrogen 13 mg/dL (9-16); Calcium 8.8 mg/dL (8.4-10.2); Carbon Dioxide 27 mmol/L (22-29); Chloride 108 mmol/L (96-108); Estimated Glomerular Filt Rate > 60; Potassium 4.4 mmol/L (3.3-5.1); Sodium 140 mmol/L (135-145)
== END 2025-08-22 07:30 | disposition home or self-care (01) ==
LOC: HO.LAB 07:29
PROVIDERS: PCP Physician Assistant; Visit Provider Physician Assistant
DX: I10 Essential (primary) hypertension (principal)
CPT/HCPCS: 36415; 80048

== ENCOUNTER 2025-08-26 08:01 | Outpatient (AMB) | payer MEDICARE, SELFPAY ==
--- OUTSIDE RECORDS SUMMARY | 2025-08-26 08:05 | XMS_ITS | Patient Health Record ---
Author Organization [facility] Address [address] [place] [address] Care Team Providers Care Clinical Reviewer Name Role Phone Nasima (RETIRED) Cayetano TOWNSEND Primary Care Provide Esteban Badillo Jr Unavailable [phone] Allergies Allergen (clinical drug ingredient) Drug/Non Drug Allergy documented on EMR Reaction Allergy Type Onset Date Status Substance with 8-qyxavlq-7-methylglutar yl-coenzyme A reductase inhibitor mechanism of action [...] Status W/U Status Risk Notes Problem Constipation (94064916) Constipation (564.00) Active confirmed Problem Celiac sprue (992193261) Celiac sprue (579.0) Active confirmed Plan Of Treatment Future Test Test Name Order Date COLONOSCOPY 09/05/2012 Insurance Providers Payer Name Payer Address Payer Phone Subscriber Number Group Number Insured Name Patient Relationship to Insured Coverage Start Date Coverage End Date [facility] [address] [place], [place] [phone] [id number] EL MCDOWELL Self - patient is the insured Medical (General) History Medical History History ICD Code Celiac disease colonoscopy and egd 9-5-2002 upper GI symptoms with left upper quadra nt pain belching and gas HTN Vit. D def. Surgical History Surgery Date(Month/Year) back surgery in 2000 for a ruptured disc .
--- NOTE | 2025-08-26 08:09 | MHC.PC.OV ---
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 Accompanied by: Self / Same As Patient Allergies hydroxychloroquine Allergy (Severe, Verified 08/26/25 08:10) Diarrhea acetaminophen (From Tylenol-Codeine #3) Adverse Reaction (Severe, Verified 08/26/25 08:10) syncope codeine (From Tylenol-Codeine #3) Adverse Reaction (Severe, Verified 08/26/25 08:10) syncope oxycodone (From Percocet) Adverse Reaction (Severe, Verified 08/26/25 08:10) syncopee Medication List - Last Reconciled 08/26/25 by JOCELYN Paul ascorbate calcium (vitamin C) 500 mg PO DAILY aspirin 81 mg PO DAILY carvedilol 12.5 mg PO BID cholecalciferol (vitamin D3) 125 mcg PO DAILY diclofenac sodium 1% (Arthritis Pain (diclofenac)) 2 grams topical QID estradiol 0.01%(0.1mg/gram) apply pea sized amount to urethra daily for one month and then 3 times a week thereafter. 90 days isosorbide mononitrate ER 30 mg PO DAILY 90 days loratadine 10 mg PO DAILY losartan 100 mg PO DAILY Tobacco use date assessed: 05/08/25 Dental Screening Dental Screen Date: 05/08/25 HPI HPI Comments History of Present Illness Details 85-year-old female with history of CAD, hypertension, hyperlipidemia, celiac disease, GERD, CKD, SLE presents to the office for follow-up. CAD/HLD-follows with Junaid in [facility] regularly, will now be following with Dr. Addison. On Imdur, losartan, Coreg, aspirin. No longer on Zetia. No recent anginal chest pains. Off statin and Zetia due to myalgia and elevated CK. Last LDL 157. Hypertension-compliant with carvedilol, Imdur, losartan. BP at home variable. BP in the office 146/65 OA: Multiple joint back, knee pain, right elbow. Worsening is left hip pain. Occ swollen. Taking advil. Radiates into L thigh. Occ paresthesias, no weakness. No current back pain. Back surgery 09/2024 for lumbar stenosis and radiculopathy (right- Dr. Gonzales). No ongoing pain. She has been going through physical therapy as well for left hip bursitis as well as spinal stenosis and finds this helpful. Following with [facility] and recently received a cortisone injection into the left hip which has been very helpful. IT band dysfunction has also been improved since the injection as well as with PT and home exercises. Celiac disease-Following [facility]. Issues since surgery. Frequent diarrhea, gas, bloating. Dx age 52, had been stable. Overall good about avoiding gluten SLE-previously on hydroxychloroquine but discontinued due to side effects Cataracts- s/p extraction with lens L 06/12, R 06/19. Vision good, getting new glasses due to reading. Much better. Dr. Chad Nagy on [email or web address] Osteoporosis-tried Fosamax in the past. On 5000 units of vitamin-D Concerns: None ROS: See HPI EXAM: Constitutional - Awake and Alert, No apparent distress Eyes - PERRL Cardiovascular - S1S2, RRR, No edema Respiratory - Normal lung expansion, Normal respiratory effort, No respiratory distress, CTA bilaterally Extremities - no calf tenderness bilaterally, no swelling MSK -focal tenderness over the lateral aspect of the left hip-full range of motion Skin - Warm/Dry Neurological - Alert & oriented x3 Psychological - Appropriate affect PFSH Medical History (Updated 08/18/25 @ 12:54 by JOCELYN Paul) Osteoporosis CAD (coronary artery disease) Vitamin D deficiency Elevated LFTs Numbness in left leg Left leg pain Hyperlipidemia Hypertension Elevated CPK Surgical History (Updated 08/26/25 @ 12:34 by JOCELYN Paul) S/P cataract extraction and insertion of intraocular lens History of colonoscopy (~10/17/12) Previous back surgery History of cardiac catheterization H/O angioplasty Hx of hysterectomy H/O basal cell carcinoma excision H/O lumbar discectomy History of total left knee replacement Family History Mother Lung cancer Arthritis Father Multiple sclerosis Sister Arthritis Leukemia Social History Housing: House Alcohol intake: former Patient Tobacco Use Status: Never used Tobacco e-Cigarette/Vaping Use: Never Used service: No Current occupational status: retired Cognitive needs: No Hearing needs: No Vision needs: Yes (rx glasses) Questionnaire Thrive Questionnaire Date Thrive assessed: 05/08/25 CHRISTIANO-7 AMB Questionnaire CHRISTIANO-7 Date CHRISTIANO - 7 assessed: 05/08/25 Source: Developed by Drs. Reed Travis, Sofi Sparks, Hemant Garcia and colleagues, with an educational mikaela from [employer]. Physical exam (Primary Care) Vital Signs: Last Vital Signs Temp 97.8 F 08/26/25 08:14 Pulse 63 08/26/25 08:14 Resp 16 08/26/25 08:14 BP 146/65 H 08/26/25 08:14 Pulse Ox 95 08/26/25 08:14 Oxygen Delivery Method Room Air 08/26/25 08:14 BMI result Body Mass Index 27.3 Tobacco/Smoking Status: Tobacco use Status Tobacco use date assessed 05/08/25 08/26/25 08:12 Patient Tobacco Use Status Never used Tobacco 08/26/25 08:12 e-Cigarette/Vaping Use Never Used 08/26/25 08:12 Thrive Assessment: Date of Thrive Assessment Date Thrive assessed 05/08/25 08/26/25 08:12 Coding Level of Care Code Est Pt Level 4 (43334) Add On Problem Visit Only Diagnoses Primary hypertension I10 Hypertension type: primary hypertension Hyperlipidemia, unspecified hyperlipidemia type E78.5 Hyperlipidemia type: unspecified CAD (coronary artery disease) I25.10 Celiac disease K90.0 Osteoporosis M81.0 Assessment & Plan Assessment & Plan (1) Hypertension: Code(s): I10 - Essential (primary) hypertension Category: Medical Qualifiers: Hypertension type: primary hypertension Qualified Code(s): I10 - Essential (primary) hypertension Plan: Elevated in the office, but previously well controlled including at OV 3 weeks ago and at last cardiology visit. She will continue current medications and check blood pressures at home. She will reach out to the office with blood pressures. Hold losartan as above (2) Hyperlipidemia: Code(s): E78.5 - Hyperlipidemia, unspecified Category: Medical Qualifiers: Hyperlipidemia type: unspecified Qualified Code(s): E78.5 - Hyperlipidemia, unspecified Plan: Lipid panel ordered. Has not tolerated statins/zetia in the past. Continue diet lower in saturated fats and highly processed foods. Continue following with cardiology (3) CAD (coronary artery disease): Code(s): I25.10 - Atherosclerotic heart disease of belkofski coronary artery without angina pectoris Category: Medical Plan: Stable. No anginal chest pain. Continue current therapies. Continue aspirin (4) Celiac disease: Code(s): K90.0 - Celiac disease Category: Medical Plan: Stable. Continue avoidance of triggering foods and continue with vitamin supplementation (5) Osteoporosis: Code(s): M81.0 - Age-related osteoporosis without current pathological fracture Category: Medical Plan: Declines Fosamax at this time. We will consider in the future. Continue calcium and vitamin-D. Will check vitamin-D levels at upcoming visit. Recommend weight-bearing exercise. Plan Follow-up as scheduled. Labs to be completed following visit Orders: Orders Vitamin D 25-OH Total 4 Months E55.9 - Vitamin D deficiency, unspecified, E78.5 - Hyperlipidemia, unspecified, I10 - Essential (primary) hypertension, K90.0 - Celiac disease, M81.0 - Age-related osteoporosis without current pathological fracture Basic Metabolic Panel 4 Months E55.9 - Vitamin D deficiency, unspecified, E78.5 - Hyperlipidemia, unspecified, I10 - Essential (primary) hypertension, K90.0 - Celiac disease, M81.0 - Age-related osteoporosis without current pathological fracture Lipid Panel 4 Months E55.9 - Vitamin D deficiency, unspecified, E78.5 - Hyperlipidemia, unspecified, I10 - Essential (primary) hypertension, K90.0 - Celiac disease, M81.0 - Age-related osteoporosis without current pathological fracture Liver Panel 4 Months E55.9 - Vitamin D deficiency, unspecified, E78.5 - Hyperlipidemia, unspecified, I10 - Essential (primary) hypertension, K90.0 - Celiac disease, M81.0 - Age-related osteoporosis without current pathological fracture
[2025-08-26 08:14] VITALS: BP 146/65; PULSE 63; RESP 16; TEMP 36.6; O2SAT 95; BMI 27.3
== END 2025-08-26 08:43 | disposition home or self-care (01) ==
LOC: HO.HMCHD 08:02
PROVIDERS: PCP Internal Medicine; Visit Provider Physician Assistant
DX: I10 Essential (primary) hypertension (principal); E78.5 Hyperlipidemia, unspecified; I25.10 Atherosclerotic heart disease of native coronary artery without angina pectoris; K90.0 Celiac disease; M81.0 Age-related osteoporosis without current pathological fracture

== ENCOUNTER → 2025-08-26 08:01 | Outpatient (BNVA) | payer MEDICARE, SELFPAY | PROVIDERS: PCP Internal Medicine; Visit Provider Physician Assistant | DX: R74.8 Abnormal levels of other serum enzymes (principal); E78.5 Hyperlipidemia, unspecified; M70.72 Other bursitis of hip, left hip; I10 Essential (primary) hypertension; K90.0 Celiac disease; I25.10 Atherosclerotic heart disease of native coronary artery without angina pectoris; M81.0 Age-related osteoporosis without current pathological fracture | CPT/HCPCS: 99212 ==